=== PATIENT | male | born 1950 | race Caucasian/White ===

== ENCOUNTER 2021-04-13 11:11 | Inpatient (IN) | payer MEDICARE, SELFPAY ==
[2021-04-13] VITALS (10 sets, daily range): BP systolic 150–168; BP diastolic 56–72; PULSE 73–83; RESP 16–22; TEMP 36.7–37.1; O2SAT 88–95; BMI 29.0
--- NOTE | ~2021-04-13 | CT_ITS ---
EXAMINATION: CTA chest PE protocol DATE: 04/13/2021 14:27 INDICATION: Shortness of breath. TECHNIQUE: Computed tomography angiography (CTA) of the chest was performed with 100 mL Omnipaque-350 intravenous contrast timed to evaluate the pulmonary arteries. Coronal maximum intensity projection 3D-reconstructions were created by the technologist. Automated exposure control and iterative reconst ruction technique were employed. The dose-length product was 475.66 mGy-cm. COMPARISON: Chest single view 04/13/2021 FINDINGS: There are patchy groundglass opacities involving all lobes with mild architectural distorti on and some areas of crazy paving. There are small right and trace left pleural effusions. The heart size is normal. There are coronary artery calcifications. No pericardial effusion. There is no pulmon jeancarlos embolus. There is a small sliding hiatal hernia. There is a lipoma in right lateral chest wall. T here is mild thoracic spondylosis. IMPRESSION: 1. No pulmonary embolus. Sensitivity is moderately decreased by motion artifact. 2. Diffuse lung disease, consistent with COVID-19 pneumonia. 3. Small right and trace left pleural effusions. Reviewed, dictated and finalized at location A. IMPRESSION: 1. No pulmonary embolus. Sensitivity is moderately decreased by motion artifact . 2. Diffuse lung disease, consistent with COVID-19 pneumonia. 3. Small right and trace left pleural effusions.
--- NOTE | ~2021-04-13 | XR_ITS ---
EXAMINATION: XR chest 1V portable DATE: 04/17/2021 11:35 INDICATION: COVID pneumonia TECHNIQUE: frontal view of the chest was obtained. COMPARISON: Chest radiograph and CT dated 04/13/2021 FINDINGS: No significant interval change in patchy airspace opacities throughout both lungs. No pneumothorax or definitive pleural effusion. The cardiomediastinal silhouette is normal. Visualized bones and soft t issues are unremarkable. IMPRESSION: 1. Unchanged patchy bilateral lung disease most consistent with COVID pneumonia with differential inc luding pulmonary edema. Reviewed, dictated and finalized at location A. IMPRESSION: 1. Unchanged patchy bilateral lung disease most consistent with COVID pneumonia with differential including pulmonary edema.
--- NOTE | ~2021-04-13 | XR_ITS ---
EXAMINATION: XR chest 1V portable EXAM DATE: 04/13/2021 12:00 INDICATION: Shortness of breath. COVID positive. TECHNIQUE: Portable AP frontal chest x-ray was obtained. There is no prior study for comparison. FINDINGS: There is moderate to large amount of bilateral ill-defined airspace disease, probably COVID pneumonia given history provided. No pneumothorax or pleural effusion. Cardiomediastinal silhouette is normal. There are no osseous abnormalities identified. IMPRESSION: 1. Moderate to large amount of bilateral acute airspace disease probably COVID pneumonia. Reviewed, dictated and finalized at location B. IMPRESSION: 1. Moderate to large amount of bilateral acute airspace disease probably COVI D pneumonia.
--- NOTE | 2021-04-13 11:32 | ECG_ITS ---
Measurements Intervals [place] Rate: 75 P: 35 ME: 153 QRS: -26 QRSD: 88 T: 55 QT: 376 QTc: 420 Interpretive Statements SINUS RHYTHM DELAYED PRECORDIAL R/S TRANSITION BASELINE ARTIFACT- I, II, III, AVR, AVL, AVF, V5-V6 BORDERLINE ECG Electronically Signed On 04-13-2021 15:25:34 CDT by Morales Clay D.O.
[2021-04-13 11:48] LABS: Basophils Percent Auto 0.1 % (0.2-1.2); Hematocrit 39.2 % (42.0-52.0); Hemoglobin 12.6 g/dL (14.0-18.0); Immature Granulocyte Absolute 0.06 K/mm3 (0.00-0.031); Immature Granulocyte Percent A 0.7 % (0-0.5); Lymphocytes Absolute Auto 0.65 K/mm3 (0.9-3.2); Lymphocytes Percent Auto 7.7 % (18.3-44.2); Mean Corpuscular HGB Conc 32.1 g/dl (32-36); Mean Corpuscular Hemoglobin 26.4 pg (26-34); Mean Corpuscular Volume 82.2 fl (80-100); Mean Platelet Volume 10.5 fl (7.4-10.4); Monocytes Absolute Auto 0.3 K/mm3 (0.1-0.6); Monocytes Percent Auto 3.4 % (2.6-8.5); Neutrophils Absolute Auto 7.5 K/mm3 (1.3-6.7); Neutrophils Percent Auto 88.1 % (45.5-73.1); Platelet Count Result 204 k/mm3 (150-375); Red Blood Count 4.77 M/mm3 (4.6-6.20); Red Cell Distribution Width 13.2 % (11.5-14.5); White Blood Count 8.5 K/mm3 (4.5-10.0)
--- NOTE | 2021-04-13 11:55 | PC.NURSE ---
Radiology at bedside
[2021-04-13 11:59] LABS: Anion Gap 7 mmol/L (8-16); Blood Urea Nitrogen 15 mg/dL (9-20); Carbon Dioxide 26 mmol/L (22-30); Chloride 101 mmol/L (98-107); Estimated CRCL calculation 67 ml/min; Estimated Glomerular Filt Rate > 60; Glucose 117 mg/dL (75-110); Sodium 134 mmol/L (137-145)
--- NOTE | 2021-04-13 12:49 | ED.SOB ---
HPI - SOB/Dyspnea General Chief Complaint: Shortness of Breath/Dyspnea Stated Complaint: COVID+, breathing problems Time Seen by Provider: 04/13/21 12:04 Source: patient and RN notes reviewed Mode of arrival: wheelchair Limitations: no limitations History of Present Illness HPI Narrative: This is a 70 year old male who presents for evaluation of shortness of breath. Patient states he was diagnosed with COVID in August and he states he has been having shortness of breath since. HE states he was not diagnosed with pneumonia at that time. He started feeling worsening shortness of breath 12 days ago. He was diagnosed with COVID on 09 of April at [facility]. His symptoms continued to worsen so he came to ER. He denies headache, chest pain, diarrhea. HE reports he had nausea and vomiting 2 days ago. He reports poor appetite. He has not been vaccinated for COVID. Related Data Home Medications Medication Instructions Recorded Confirmed azithromycin 250 mg PO DAILY 04/13/21 04/13/21 benzonatate 100 mg BYMOUTH QID PRN 04/13/21 04/13/21 Allergies Allergy/AdvReac Type Severity Reaction Status Date / Time No Known Allergies Allergy Verified 04/13/21 16:49 Review of Systems Review of Systems: All systems reviewed & are unremarkable except as noted in HPI and below Constitutional: Constitutional: Denies chills and Denies fever(s) Cardiovascular: Cardiovascular: Denies chest pain Respiratory: Respiratory: Reports cough and Reports dyspnea Gastrointestinal: Gastrointestinal: Denies abdominal pain, Denies diarrhea, Reports nausea and Reports vomiting Neurologic: Reports headache(s), Reports focal weakness and Reports numbness PMFSH Past Medical History Medical History (Updated 04/13/21 @ 22:59 by Radha Hemphill MD) Hypertension Family History Family History Father Hypertension Social History Social History (Updated 04/13/21 @ 13:01 by Radha Hemphill MD) Smoking status: Never smoker Alcohol intake: current Drinks per week: 1 Substance use: never Gender identity (if verbalized by the patient): Male Sexual Orientation (if Verbalized by the Patient): Straight or Heterosexual Spiritual care concerns: No Exam Const: General: no acute distress and alert Orientation/consciousness: patient oriented x3 Eyes: EOM: EOMs intact bilaterally Chest: Chest palpation & inspection: normal inspection of the chest Resp: Effort & Inspection: normal respiratory effort and no retractions Auscultation: clear to auscultation bilaterally Cardio: Rate: regular rate Rhythm: regular rhythm Heart sounds: no murmurs GI: GI Palp: Yes Soft to palpation, No Tenderness to palpation present (GI) and No Guarding due to palpation present (GI) Auscultation: normal bowel sounds Neuro: General: patient oriented x3, moves all extremities and CN's II-XI intact bilaterally Extrem: General: normal to inspection and no pedal edema Psych: Mental Status: mental status grossly normal Affect: normal affect Course Reevaluation(s) Reevaluation #1: Patient has been found to have diffuse lung disease with covid. He is outside of 10day but his oxygen was 88==-89 % with ambulation. He will be admitted. Stable for the floor Date: 04/13/21 Time: 14:20 Vital Signs Vital signs: Vital Signs Temperature 98.7 F 04/13/21 11:30 Pulse Rate 76 04/13/21 11:30 Respiratory Rate 16 04/13/21 11:30 Blood Pressure 152/56 H 04/13/21 11:30 Pulse Oximetry 93 04/13/21 11:30 Temperature 98.0 F 04/13/21 20:00 Pulse Rate 78 04/13/21 20:00 Respiratory Rate 18 04/13/21 20:00 Blood Pressure 154/62 H 04/13/21 20:00 Pulse Oximetry 93 04/13/21 20:00 MDM - SOB/Dyspnea Lab Data Attestation: I reviewed the patient's lab results. Result diagrams: 04/13/21 11:35 04/13/21 11:35 Labs: Lab Results 04/13/21
[2021-04-13] MEDS: ALBUTEROL SULFATE (*SP) AEROSOL 1 PUFF 4 PUFF INHALATION (13:04)
[2021-04-13] MEDS: SODIUM CHLORIDE 0.9% IV 1,000 ML 999 ML IV CONT (13:33)
[2021-04-13 13:41] LABS: INR 1.1; Prothrombin Time 13.7 Seconds (11.1-14.7)
[2021-04-13 13:42] LABS: Partial Thromboplastin Time 32.4 SECONDS (22.3-36.8)
[2021-04-13 13:44] LABS: D Dimer 2.34 ug/mL (<0.48)
[2021-04-13 13:46] LABS: NT Pro B Type Natriuretic Pept 1140 pg/mL (5-100); Troponin I 0.029 ng/mL (0.000-0.034)
[2021-04-13] MEDS: DEXAMETHASONE 2 MG TABLET 6 MG PO (16:28)
[2021-04-13] MEDS: SODIUM CHLORIDE 0.9% IV 1,000 ML 125 ML IV CONT (16:28)
--- NOTE | 2021-04-13 16:40 | ADMGEN ---
This patient, Hemal Tracy, was admitted to [address] [place] [address] Room 310-01. Patient/family oriented to hospital policies and general routines including ID bracelet, bed and alarms, visiting hours, pain management, procedures, bathroom and other care routines, personal items, smoking policy, room service/diet, and visiting hours. Information on how to activate the Rapid Response Team has been discussed. Patient/Family are encouraged to report perceived risks to care and to ask questions if they do not understand what they are told or what they should do.
[2021-04-14] VITALS (12 sets, daily range): BP systolic 137–182; BP diastolic 57–67; PULSE 66–79; RESP 18–20; TEMP 36.2–36.7; O2SAT 90–95
[2021-04-14] MEDS: SODIUM CHLORIDE 0.9% IV 1,000 ML 125 ML IV CONT (00:42)
--- NOTE | 2021-04-14 01:23 | PM.IMHP ---
H&P: HPI History of Present Illness Date/Time: 04/14/21 01:23 Chief Complaint: COUGH Narrative: THIS IS A 70-YEAR-OLD MALE WITH NO SIGNIFICANT PAST MEDICAL HISTORY PATIENT PRESENTED TO THE EMERGENCY ROOM AFTER HE WAS DIAGNOSED WITH COVID ON April PATIENT STATES THAT HE HAD PNEUMONIA COVID-19 BACK IN AUGUST OF 2020 AND HE STATES THAT HE HAS NEVER FULLY RECOVERED FROM THAT BUT HE DID NOTICE SOME WORSENING OF HIS SHORTNESS OF BREATH HAVE PRIOR TO PRESENTING TO [facility]. AT THE TIME OF MY VISIT PATIENT DENIED ANY NAUSEA ANY VOMITING ABDOMINAL PAIN OR DIARRHEA NO FEVERS NO RIGORS NO CHILLS. PRELIMINARY WORKUP WAS SIGNIFICANT FOR CHEST X-RAY WITH DIFFUSE INFILTRATES WELL CT OF THE LUNGS. Review of Systems Review of Systems: Narrative: WORSENING SHORTNESS OF BREATH Constitutional: Constitutional: Denies chills, Reports fatigue, Denies fever(s), Reports lethargy and Denies weakness Eyes: Eyes: Denies change in vision ENT: Denies nasal congestion, Denies nasal discharge and Denies nasal obstruction Cardiovascular: Cardiovascular: Denies chest pain, Denies diaphoresis, Denies irregular heart rhythm, Denies claudication, Denies lightheadedness, Denies radiating jaw, neck or arm pain, Denies palpitations and Reports dyspnea Gastrointestinal: Gastrointestinal: Denies abdominal pain, Denies diarrhea, Denies nausea and Denies vomiting Genitourinary: Genitourinary: Reports no additional male genitourinary complaints Musculoskeletal: Musculoskeletal: Reports no additional musculoskeletal complaints Integumentary/Breasts: Skin/Breast: Reports system reviewed and no additional complaints, except as docu Neurologic: Reports system reviewed and no additional complaints, except as documented Psychiatric: Psychiatric: Reports no additional psychiatric complaints Endocrine: Endocrine: Reports no additional endocrine complaints Hematologic/Lymphatic: Hematologic/Lymphatic: Reports no additional hematologic/lymphatic complaints Allergic/Immunologic: Allergic/Immunologic: Reports no additional allergic/immunologic complaints [facility] Past Medical History Medical History (Updated 04/13/21 @ 22:59 by Radha Hemphill MD) Hypertension Family History Family History Father Hypertension Social History Social History (Updated 04/13/21 @ 13:01 by Radha Hemphill MD) Smoking status: Never smoker Alcohol intake: current Drinks per week: 1 Substance use: never Gender identity (if verbalized by the patient): Male Sexual Orientation (if Verbalized by the Patient): Straight or Heterosexual Spiritual care concerns: No Meds Home Medications and Allergies Home Medications Medication Instructions Recorded Confirmed Type azithromycin 250 mg PO DAILY 04/13/21 04/13/21 History benzonatate 100 mg BYMOUTH QID PRN 04/13/21 04/13/21 History Allergies Allergy/AdvReac Type Severity Reaction Status Date / Time No Known Allergies Allergy Verified 04/13/21 16:49 Vital Signs Vital Signs - 24 hr 04/13/21 11:30 04/13/21 11:45 04/13/21 11:47 Temperature 98.7 F Pulse Rate 76 73 73 Respiratory Rate 16 22 H Blood Pressure 152/56 H 159/71 H Pulse Oximetry 93 95 04/13/21 14:00 04/13/21 16:06 04/13/21 16:31 Temperature 98.1 F Pulse Rate 75 78 83 Respiratory Rate 18 18 22 H Blood Pressure 152/72 H 150/70 H 168/66 H Pulse Oximetry 94 95 90 04/13/21 20:00 04/13/21 20:27 04/13/21 23:45 Temperature 98.0 F 98.0 F Pulse Rate 78 78 Respiratory Rate 18 18 Blood Pressure 154/62 H 154/62 H Pulse Oximetry 93 90 88 L 04/13/21 23:49 04/14/21 00:22 Temperature 97.6 F Pulse Rate 71 Respiratory Rate 18 Blood Pressure 150/62 H Pulse Oximetry 92 90 Exam Narrative: Exam Narrative: LAYING IN BED Const: General: comfortable, no acute distress, well developed, alert, awake and other ( WELL-APPEARING) Nutritional Appearance: aver
[2021-04-14 02:10] LABS: Alanine Aminotransferase 27 U/L (4-50)
[2021-04-14] MEDS: REMDESIVIR 200 MG/NS 250 ML 200 MG/250 ML BAG 250 MG IVPB (04:09)
[2021-04-14 06:29] LABS: Basophils Percent Auto 0.1 % (0.2-1.2); Hematocrit 35.3 % (42.0-52.0); Hemoglobin 11.3 g/dL (14.0-18.0); Immature Granulocyte Absolute 0.06 K/mm3 (0.00-0.031); Immature Granulocyte Percent A 0.8 % (0-0.5); Lymphocytes Absolute Auto 0.53 K/mm3 (0.9-3.2); Lymphocytes Percent Auto 7.3 % (18.3-44.2); Mean Corpuscular Hemoglobin 26.2 pg (26-34); Mean Corpuscular Volume 81.7 fl (80-100); Mean Platelet Volume 10.5 fl (7.4-10.4); Monocytes Absolute Auto 0.3 K/mm3 (0.1-0.6); Monocytes Percent Auto 3.4 % (2.6-8.5); Neutrophils Absolute Auto 6.4 K/mm3 (1.3-6.7); Neutrophils Percent Auto 88.4 % (45.5-73.1); Platelet Count Result 214 k/mm3 (150-375); Red Blood Count 4.32 M/mm3 (4.6-6.20); Red Cell Distribution Width 13.2 % (11.5-14.5); White Blood Count 7.3 K/mm3 (4.5-10.0)
[2021-04-14 06:38] LABS: Anion Gap 8 mmol/L (8-16); Blood Urea Nitrogen 14 mg/dL (9-20); Calcium 8.5 mg/dL (8.4-10.2); Carbon Dioxide 23 mmol/L (22-30); Chloride 102 mmol/L (98-107); Estimated CRCL calculation 71 ml/min; Estimated Glomerular Filt Rate > 60; Glucose 151 mg/dL (75-110); Lactate Dehydrogenase 1022 U/L (313-618); Potassium 4.3 mmol/L (3.4-5.0); Sodium 133 mmol/L (137-145)
[2021-04-14 07:45] LABS: Burr Cells 2+ (NORMAL)
[2021-04-14 07:46] LABS: Platelet Estimate Adequate (Adequate); Tear Drop Cells 1+ (NORMAL)
[2021-04-14] MEDS: FUROSEMIDE INJ 40 MG/4 ML VIAL IV PUSH (07:54)
[2021-04-14] MEDS: ENOXAPARIN 40 MG/0.4 ML SYRINGE SUB-Q ×2 (07:55→22:08)
[2021-04-14] MEDS: BENZONATATE 100 MG CAPSULE BY MOUTH (07:55)
[2021-04-14] MEDS: DEXAMETHASONE SOD PHOS INJ 4 MG/ML VIAL 6 MG IV PUSH (07:56)
[2021-04-14 10:15] LABS: Erythrocyte Sedimentation Rate 47 mm/hr (0-20)
--- NOTE | 2021-04-14 12:43 | PM.IMPN ---
Progress Note: A&P Assessment and Plan (1) Bilateral pneumonia: Code(s): J18.9 - Pneumonia, unspecified organism Status: Acute Assessment and Plan: ADMITTED TO MED SURGE UNIT VITALS PER UNIT PROTOCOL UP AT [facility] CTA REVIEWED no PE, lung disease consistent with COVID CHEST X-RAY REVIEWED CONVALESCENT PLASMA REMDESIVIR 100mg IV Day 1 DEXAMETHASONE 6mg IV daily ROCEPHIN 2 gm daily AND ZITHROMAX 500mg IV daily Blood cultures pending Deescalate antibiotics when culture resulted LOVENOX 40 SUBCU B.I.D. FOLLOW INFLAMMATORY MARKERS: DDimer 2.34, Ferritin 583, LDH 1022, CRP 7 Trend labs Labs in the am BNP elevated 1140, 40mg IV lasix x 1 (2) COVID: Code(s): U07.1 - COVID-19 Status: Acute Assessment and Plan: See above Covid pending Supplement O2 maintain saturations above 92% Time Spent With Patient Time with patient: Greater than 35 minutes Subjective Date/time seen: 04/14/21 12:43 Interval history: Patient is a 71 year old male with no medical history that presented to the ED for evaluation of COVID. Patient was diagnosed on 04/09/21. Today he stated that he is doing a lot better and has been able to taste his food for the first time in a few days. Patient denies shortness of breath, chest pain, nausea, vomiting, diarrhea, headache, abdominal pain, lightheadedness, dizziness, or syncope. Patient did state that he has been up and walking around the room, he stated that he has not had any cough or noticed any increase in swelling. Patient did ask about the covid vaccine, however, I explained that he might have to wait a few months before he can get the vaccination. Review of Systems Review of Systems: All systems reviewed & are unremarkable except as noted in HPI and below Exam Const: General: cooperative, healthy appearing, comfortable, no acute distress, well developed, alert, awake, Physically active and other ( WELL-APPEARING) Nutritional Appearance: average body habitus Orientation/consciousness: oriented to person, oriented to place, oriented to time and patient oriented x3 HENMT: Head: normal to inspection, normocephalic and atraumatic Ears: hearing grossly normal bilaterally General nose exam: Normal external nose present Face and sinus: normal facial exam Mouth: Yes Normal oral and palatal mucosa present Eyes: General: appearance normal, both eyes and all related structures Alignment and Position: alignment normal Sclera: sclerae normal Pupils: Equal, round and reactive pupils present EOM: EOMs intact bilaterally Neck: Neck: full ROM, no lymphadenopathy, supple and no JVD Lymphatic: no lymphadenopathy noted Resp: Effort & Inspection: normal respiratory effort and able to speak in complete sentences Auscultation: clear to auscultation bilaterally Cardio: Jugular venous distension: no JVD Rate: regular rate Rhythm: regular rhythm Heart sounds: S1 normal heart sound present and S2 normal heart sound present GI: Inspection: normal to inspection : General: Yes deferred Skin: General skin exam: normal color Rashes: no rashes Wounds: no wounds Neuro: General: patient oriented x3 and CN's II-XI intact bilaterally Cranial nerves: Yes CN's II-XII intact bilaterally and Yes Equal, round and reactive pupils present Cognition (Neuro): normal cognition Speech: normal speech Gait exam (Neuro): Normal gait present Motor exam (neuro): 5/5 motor strength present throughout Extrem: General: normal to inspection, full ROM, no joint enlargement and no pedal edema Psych: Appearance: grossly normal Mental Status: mental status grossly normal Affect: normal affect Attitude: cooperative Thought process: Normal thought process present Thought content: Yes Normal thought content present Insight: Good insight present (Psych) Judgement: Good judgement present (Psych) Objective Data Vital Signs Vital Signs: Vital Signs - 24 hr
[2021-04-14] MEDS: TUBING, BLOOD PLUM PUMP TUBING 1 EACH XX (14:00)
[2021-04-14] MEDS: SODIUM CHLORIDE 0.9% IV 250 ML 30 ML IV CONT (14:00)
[2021-04-14] MEDS: REMDESIVIR 100 MG/NS 250 ML 100 MG/250 ML BAG 250 MG IVPB (22:09)
[2021-04-15] VITALS: BP 154/61; PULSE 59; RESP 20; TEMP 36.4; O2SAT 91
[2021-04-15 04:00] VITALS: BP 147/63; PULSE 62; RESP 20; TEMP 36.6; O2SAT 91
[2021-04-15 06:33] LABS: Basophils Percent Auto 0.1 % (0.2-1.2); Hematocrit 37.4 % (42.0-52.0); Immature Granulocyte Absolute 0.09 K/mm3 (0.00-0.031); Immature Granulocyte Percent A 0.8 % (0-0.5); Lymphocytes Absolute Auto 0.89 K/mm3 (0.9-3.2); Lymphocytes Percent Auto 8.3 % (18.3-44.2); Mean Corpuscular HGB Conc 32.1 g/dl (32-36); Mean Corpuscular Hemoglobin 26.1 pg (26-34); Mean Corpuscular Volume 81.3 fl (80-100); Mean Platelet Volume 10.6 fl (7.4-10.4); Monocytes Absolute Auto 0.5 K/mm3 (0.1-0.6); Neutrophils Absolute Auto 9.2 K/mm3 (1.3-6.7); Neutrophils Percent Auto 85.8 % (45.5-73.1); Platelet Count Result 285 k/mm3 (150-375); Red Cell Distribution Width 13.2 % (11.5-14.5); White Blood Count 10.7 K/mm3 (4.5-10.0)
[2021-04-15 06:39] LABS: INR 1.1; Prothrombin Time 13.6 Seconds (11.1-14.7)
[2021-04-15 06:52] LABS: Alanine Aminotransferase 22 U/L (4-50); Albumin Level 3.3 g/dL (3.5-5.1); Alkaline Phosphatase 56 U/L (38-126); Anion Gap 6 mmol/L (8-16); Aspartate Amino Transferase 35 U/L (17-59); Bilirubin,Total 0.5 mg/dL (0.2-1.3); Blood Urea Nitrogen 20 mg/dL (9-20); Calcium 9.1 mg/dL (8.4-10.2); Carbon Dioxide 27 mmol/L (22-30); Chloride 102 mmol/L (98-107); Estimated CRCL calculation 65 ml/min; Estimated Glomerular Filt Rate > 60; Glucose 157 mg/dL (75-110); Potassium 3.7 mmol/L (3.4-5.0); Sodium 135 mmol/L (137-145)
[2021-04-15 07:39] LABS: Burr Cells 1+ (NORMAL); Ovalocytes 1+ (NORMAL); Platelet Estimate Adequate (Adequate)
[2021-04-15 08:00] VITALS: BP 151/62; PULSE 61; RESP 20; TEMP 36.3; O2SAT 91
[2021-04-15] MEDS: DEXAMETHASONE SOD PHOS INJ 4 MG/ML VIAL 6 MG IV PUSH (08:51)
[2021-04-15] MEDS: ENOXAPARIN 40 MG/0.4 ML SYRINGE SUB-Q ×2 (08:51→20:01)
[2021-04-15 12:00] VITALS: BP 141/56; PULSE 65; RESP 20; TEMP 37; O2SAT 91
--- NOTE | 2021-04-15 15:48 | PM.IMPN ---
Progress Note: A&P Assessment and Plan (1) Bilateral pneumonia: Code(s): J18.9 - Pneumonia, unspecified organism Status: Acute Assessment and Plan: Secondary to COVID -Continue remdesivir, decadron, and lovenox -Utilize o2 for sats <90 and continue to wean -Inflammatory markers high, continue to trend -No PE on CTA -BNP elevated with small pleural effusions on CT. no hx of heart disease. No signs of CHF. Recommend outpt echo -Will stop IV abx, no signs of bacterial infection -Pt unvaccinated and plans to get the covid vaccine in 3 months (2) COVID: Code(s): U07.1 - COVID-19 Status: Acute Assessment and Plan: As above (3) Elevated BP without diagnosis of hypertension: Code(s): R03.0 - Elevated blood-pressure reading, without diagnosis of hypertension Status: Acute Assessment and Plan: last bp 141/56 -could be due to stress but pt was running much higher in the past (182/67) -Monitor trends, consider starting bp lowering medications if he continues to be high. Time Spent With Patient Time with patient: 25 - 35 minutes Subjective Date/time seen: 04/15/21 15:48 Interval history: Pt is a 70 y/o male here for COVID PNA. Pt was seen today and is doing better. he has an occasional cough and no SOB at rest or with activity. He has been walking around the room without lightheadness or weakness. He is eating and drinking well. He denies nausea, vomiting, fevers, chills, abdominal pain or CP. Review of Systems Review of Systems: All systems reviewed & are unremarkable except as noted in HPI and below Exam Narrative: Exam Narrative: General: Well developed well nourished patient in NAD HEENT: normocephalic Neck: supple Neuro: Alert and oriented x4 CV:RRR Resp:CTA with 2L of o2 applied Abd: Soft, non distended. No pain to palpation. Positive bowel sounds Extremities: No swelling, erythema, or pain to palpation. Objective Data Vital Signs Vital Signs: Vital Signs - 24 hr 04/14/21 16:35 04/14/21 17:35 04/14/21 20:00 Temperature 97.8 F 97.4 F L 97.2 F L Pulse Rate 68 69 66 Respiratory Rate 18 18 20 Blood Pressure 153/61 H 156/67 H 150/63 H Pulse Oximetry 92 95 91 04/15/21 00:00 04/15/21 04:00 04/15/21 08:00 Temperature 97.6 F 97.8 F 97.3 F L Pulse Rate 59 L 62 61 Respiratory Rate 20 20 20 Blood Pressure 154/61 H 147/63 H 151/62 H Pulse Oximetry 91 91 91 04/15/21 12:00 Temperature 98.6 F Pulse Rate 65 Respiratory Rate 20 Blood Pressure 141/56 H Pulse Oximetry 91 Intake/Output Intake/Output: Intake & Output 04/12/21 04/13/21 04/14/21 04/15/21 23:59 23:59 23:59 23:59 Intake Total 1250 4084 1150 Output Total 800 500 Balance 1250 3284 650 Meds/Results Medications: Active Medications Generic Name Dose Route Start Last Admin Trade Name Freq PRN Reason Stop Dose Admin Albuterol 4 puff 04/13/21 14:44 Albuterol Sulfate (*Sp) Aerosol 1 Puff INHALATION QIDRT PRN Shortness Of Breath Benzonatate 100 mg 04/14/21 01:17 04/14/21 07:55 Benzonatate 100 Mg Capsule BY MOUTH 100 mg QID PRN Administration Cough Dexamethasone Sodium Phosphate 6 mg 04/14/21 09:00 04/15/21 08:51 Dexamethasone Sod Phos Inj 4 Mg/Ml Vial IV PUSH 04/23/21 09:01 6 mg DAILY JOSEPHINE Administration Enoxaparin Sodium 40 mg 04/14/21 09:00 04/15/21 08:51 Enoxaparin 40 Mg/0.4 Ml Syringe SUB-Q 40 mg Q12HR JOSEPHINE Administration Remdesivir 100 mg in 250 mls @ 250 mls/hr 04/14/21 22:00 04/14/21 23:30 IVPB 04/18/21 22:01 Infused Q24H JOSEPHINE Infusion Azithromycin 500 mg/ Dextrose 250 mls @ 250 mls/hr 04/14/21 22:00 04/15/21 02:10 IVPB Infused DAILY@2200 JOSEPHINE Infusion Ceftriaxone Sodium/Dextrose 1 gm in 50 mls @ 100 mls/hr 04/16/21 07:00 Rocephin 1 Gm/D5w 50 Ml IVPB Q24H JOSEPHINE Ondansetron HCl 4 mg 04/13/21 14:44 Ondansetron Inj 4 Mg/2 Ml Vial IV PUSH Q4H PRN Nausea
[2021-04-15 16:00] VITALS: BP 152/64; PULSE 65; RESP 22; TEMP 36.4; O2SAT 92
[2021-04-15 20:00] VITALS: BP 150/66; PULSE 61; RESP 20; TEMP 36.2; O2SAT 94
[2021-04-15] MEDS: REMDESIVIR 100 MG/NS 250 ML 100 MG/250 ML BAG 250 MG IVPB (22:20)
[2021-04-16] VITALS (10 sets, daily range): BP systolic 129–170; BP diastolic 59–69; PULSE 59–72; RESP 16–20; TEMP 36.2–36.4; O2SAT 84–92
[2021-04-16 07:17] LABS: INR 1.1; Prothrombin Time 13.7 Seconds (11.1-14.7)
[2021-04-16 07:21] LABS: D Dimer 1.69 ug/mL (<0.48)
[2021-04-16 07:32] LABS: Alanine Aminotransferase 21 U/L (4-50); Albumin Level 3.1 g/dL (3.5-5.1); Alkaline Phosphatase 55 U/L (38-126); Anion Gap 5 mmol/L (8-16); Aspartate Amino Transferase 34 U/L (17-59); Bilirubin,Total 0.6 mg/dL (0.2-1.3); Blood Urea Nitrogen 21 mg/dL (9-20); CRP 2.3 mg/dL (<1.0); Calcium 9.5 mg/dL (8.4-10.2); Carbon Dioxide 28 mmol/L (22-30); Chloride 103 mmol/L (98-107); Estimated CRCL calculation 59 ml/min; Estimated Glomerular Filt Rate > 60; Glucose 109 mg/dL (75-110); Potassium 4.3 mmol/L (3.4-5.0); Sodium 136 mmol/L (137-145)
[2021-04-16] MEDS: amLODIPine BESYLATE 5 MG TABLET PO (09:30)
[2021-04-16] MEDS: ENOXAPARIN 40 MG/0.4 ML SYRINGE SUB-Q ×2 (09:30→20:35)
[2021-04-16] MEDS: DEXAMETHASONE SOD PHOS INJ 4 MG/ML VIAL 6 MG IV PUSH (09:30)
--- NOTE | 2021-04-16 14:43 | PM.IMPN ---
Progress Note: A&P Assessment and Plan (1) Bilateral pneumonia: Code(s): J18.9 - Pneumonia, unspecified organism Status: Acute Assessment and Plan: Secondary to COVID -Continue remdesivir, decadron, and lovenox -Utilize o2 for sats <90 and continue to wean -Inflammatory markers high, continue to trend -No PE on CTA -BNP elevated with small pleural effusions on CT. no hx of heart disease. No signs of CHF. Recommend outpt echo - IV abx stopped, no signs of bacterial infection -Pt unvaccinated and plans to get the covid vaccine in 3 months (2) COVID: Code(s): U07.1 - COVID-19 Status: Acute Assessment and Plan: As above (3) Elevated BP without diagnosis of hypertension: Code(s): R03.0 - Elevated blood-pressure reading, without diagnosis of hypertension Status: Acute Assessment and Plan: last bp 129/63 but was elevated 170/64 this morning. -Amlodipine started as he has been trending high. Subjective Date/time seen: 04/16/21 14:43 Interval history: Pt is a 70 y/o male here for COVID PNA. Pt was seen today and is doing well but was hypoxic earlier. He did not feel this. he has an occasional cough and no SOB at rest or with activity. He has been walking around the room without lightheadedness or weakness. He is eating and drinking well. He denies nausea, vomiting, fevers, chills, abdominal pain or CP. Exam Narrative: Exam Narrative: General: Well developed well nourished patient in NAD HEENT: normocephalic Neck: supple Neuro: Alert and oriented x4 CV:RRR Resp:CTA with 3L of o2 applied Abd: Soft, non distended. No pain to palpation. Positive bowel sounds Extremities: No swelling, erythema, or pain to palpation. Objective Data Vital Signs Vital Signs: Vital Signs - 24 hr 04/15/21 16:00 04/15/21 20:00 04/16/21 00:00 Temperature 97.5 F L 97.1 F L 97.1 F L Pulse Rate 65 61 59 L Respiratory Rate 22 H 20 20 Blood Pressure 152/64 H 150/66 H 154/63 H Pulse Oximetry 92 94 90 04/16/21 01:51 04/16/21 04:00 04/16/21 08:00 Temperature 97.2 F L 97.3 F L Pulse Rate 59 L 65 Respiratory Rate 20 16 Blood Pressure 170/64 H 158/59 H Pulse Oximetry 90 90 89 L 04/16/21 09:35 04/16/21 09:38 04/16/21 12:00 Temperature 97.5 F L Pulse Rate 72 Respiratory Rate 20 Blood Pressure 129/63 Pulse Oximetry 84 L 90 90 Intake/Output Intake/Output: Intake & Output 04/13/21 04/14/21 04/15/21 04/16/21 23:59 23:59 23:59 23:59 Intake Total 1250 4084 2690 910 Output Total 800 850 Balance 1250 3284 1840 910 Meds/Results Medications: Active Medications Generic Name Dose Route Start Last Admin Trade Name Freq PRN Reason Stop Dose Admin Albuterol 4 puff 04/13/21 14:44 Albuterol Sulfate (*Sp) Aerosol 1 Puff INHALATION QIDRT PRN Shortness Of Breath Amlodipine Besylate 5 mg 04/16/21 09:00 04/16/21 09:30 Amlodipine Besylate 5 Mg Tablet PO 5 mg QAM JOSEPHINE Administration Benzonatate 100 mg 04/14/21 01:17 04/14/21 07:55 Benzonatate 100 Mg Capsule BY MOUTH 100 mg QID PRN Administration Cough Dexamethasone Sodium Phosphate 6 mg 04/14/21 09:00 04/16/21 09:30 Dexamethasone Sod Phos Inj 4 Mg/Ml Vial IV PUSH 04/23/21 09:01 6 mg DAILY JOSEPHINE Administration Enoxaparin Sodium 40 mg 04/14/21 09:00 04/16/21 09:30 Enoxaparin 40 Mg/0.4 Ml Syringe SUB-Q 40 mg Q12HR JOSEPHINE Administration Remdesivir 100 mg in 250 mls @ 250 mls/hr 04/14/21 22:00 04/16/21 00:22 IVPB 04/18/21 22:01 250 mls/hr Q24H JOSEPHINE Infusion Ondansetron HCl 4 mg 04/13/21 14:44 Ondansetron Inj 4 Mg/2 Ml Vial IV PUSH Q4H PRN Nausea Radiology Results: ITS Impressions Chest X-Ray 04/13/21 12:06 IMPRESSION: 1. Moderate to large amount of bilateral acute airspace disease probably COVID pneumonia. Chest CTA 04/13/21 14:34 IMPRESSION: 1. No pulmonary embolus. Sensitivity is moderately d
[2021-04-16] MEDS: REMDESIVIR 100 MG/NS 250 ML 100 MG/250 ML BAG 250 MG IVPB (20:34)
[2021-04-17] VITALS (9 sets, daily range): BP systolic 139–171; BP diastolic 56–64; PULSE 60–76; RESP 18–22; TEMP 36.1–36.8; O2SAT 86–93
[2021-04-17 06:48] LABS: Hematocrit 35.9 % (42.0-52.0); Hemoglobin 11.5 g/dL (14.0-18.0); Mean Corpuscular Hemoglobin 26.4 pg (26-34); Mean Corpuscular Volume 82.3 fl (80-100); Mean Platelet Volume 10.6 fl (7.4-10.4); Platelet Count Result 332 k/mm3 (150-375); Red Blood Count 4.36 M/mm3 (4.6-6.20); Red Cell Distribution Width 13.2 % (11.5-14.5); White Blood Count 11.3 K/mm3 (4.5-10.0)
[2021-04-17 07:31] LABS: INR 1.1; Prothrombin Time 13.6 Seconds (11.1-14.7)
[2021-04-17 07:32] LABS: Alanine Aminotransferase 20 U/L (4-50); Albumin Level 2.9 g/dL (3.5-5.1); Alkaline Phosphatase 51 U/L (38-126); Anion Gap 5 mmol/L (8-16); Aspartate Amino Transferase 33 U/L (17-59); Bilirubin,Total 0.4 mg/dL (0.2-1.3); Blood Urea Nitrogen 23 mg/dL (9-20); CRP 2.8 mg/dL (<1.0); Calcium 9.3 mg/dL (8.4-10.2); Carbon Dioxide 24 mmol/L (22-30); Chloride 104 mmol/L (98-107); Estimated CRCL calculation 65 ml/min; Estimated Glomerular Filt Rate > 60; Glucose 86 mg/dL (75-110); Lactate Dehydrogenase 882 U/L (313-618); Potassium 4.3 mmol/L (3.4-5.0); Sodium 133 mmol/L (137-145)
[2021-04-17] MEDS: DEXAMETHASONE SOD PHOS INJ 4 MG/ML VIAL 6 MG IV PUSH (09:22)
[2021-04-17] MEDS: amLODIPine BESYLATE 5 MG TABLET PO (09:22)
[2021-04-17] MEDS: ENOXAPARIN 40 MG/0.4 ML SYRINGE SUB-Q ×2 (09:22→20:31)
--- NOTE | 2021-04-17 15:09 | PM.IMPN ---
Progress Note: A&P Assessment and Plan (1) Bilateral pneumonia: Code(s): J18.9 - Pneumonia, unspecified organism Status: Acute Assessment and Plan: Secondary to COVID - oxygen has increased to 5 L today. Repeat chest x-ray is unchanged. Suspect this was due to dyspnea on exertion as he says he feels short of breath when he walks to and from the bathroom. He has no PE on the CTA and has been on Lovenox -Continue remdesivir, decadron, and lovenox -Utilize o2 for sats <90 and continue to wean -Inflammatory markers high, continue to trend -No PE on CTA - BNP elevated and patient has crackles. Will give 1 dose of IV Lasix now and check an echo - IV abx stopped, no signs of bacterial infection -Pt unvaccinated and plans to get the covid vaccine in 3 months (2) COVID: Code(s): U07.1 - COVID-19 Status: Acute Assessment and Plan: As above (3) Elevated BP without diagnosis of hypertension: Code(s): R03.0 - Elevated blood-pressure reading, without diagnosis of hypertension Status: Acute Assessment and Plan: last bp 151/56 but was elevated 170/64 in the past -Amlodipine started as he has been trending high. Subjective Date/time seen: 04/17/21 15:09 Interval history: Pt is a 70 y/o male here for COVID PNA. Patient was seen today and states he is feeling about the same as yesterday. He has some dyspnea on exertion but other than that feels the same. Pt denies nausea, vomiting, fevers, chills, constipation, diarrhea, chest pain, worsening cough, or abdominal pain. Exam Narrative: Exam Narrative: General: Well developed well nourished patient in NAD HEENT: normocephalic, on nasal cannula Neck: supple Neuro: Alert and oriented x4 CV:RRR Resp: crackles at the baseswith 5L of o2 applied Abd: Soft, non distended. No pain to palpation. Positive bowel sounds Extremities: No swelling, erythema, or pain to palpation. Objective Data Vital Signs Vital Signs: Vital Signs - 24 hr 04/16/21 15:41 04/16/21 20:00 04/16/21 20:05 Temperature 97.4 F L 97.2 F L Pulse Rate 68 68 Respiratory Rate 18 20 Blood Pressure 151/69 H 144/61 H Pulse Oximetry 92 90 92 04/17/21 00:00 04/17/21 04:00 04/17/21 08:00 Temperature 97.0 F L 97.4 F L 97.3 F L Pulse Rate 62 67 65 Respiratory Rate 20 22 H 18 Blood Pressure 156/59 H 171/64 H 151/62 H Pulse Oximetry 90 90 91 04/17/21 09:33 04/17/21 11:32 04/17/21 11:42 Temperature 98.2 F Pulse Rate 76 Respiratory Rate 22 H Blood Pressure 151/56 H Pulse Oximetry 90 91 93 Intake/Output Intake/Output: Intake & Output 04/14/21 04/15/21 04/16/21 04/17/21 23:59 23:59 23:59 23:59 Intake Total 4084 2690 2430 970 Output Total 800 850 Balance 3284 1840 2430 970 Meds/Results Medications: Active Medications Generic Name Dose Route Start Last Admin Trade Name Freq PRN Reason Stop Dose Admin Albuterol 4 puff 04/13/21 14:44 Albuterol Sulfate (*Sp) Aerosol 1 Puff INHALATION QIDRT PRN Shortness Of Breath Amlodipine Besylate 5 mg 04/16/21 09:00 04/17/21 09:22 Amlodipine Besylate 5 Mg Tablet PO 5 mg QAM JOSEPHINE Administration Benzonatate 100 mg 04/14/21 01:17 04/14/21 07:55 Benzonatate 100 Mg Capsule BY MOUTH 100 mg QID PRN Administration Cough Dexamethasone Sodium Phosphate 6 mg 04/14/21 09:00 04/17/21 09:22 Dexamethasone Sod Phos Inj 4 Mg/Ml Vial IV PUSH 04/23/21 09:01 6 mg DAILY JOSEPHINE Administration Enoxaparin Sodium 40 mg 04/14/21 09:00 04/17/21 09:22 Enoxaparin 40 Mg/0.4 Ml Syringe SUB-Q 40 mg Q12HR JOSEPHINE Administration Furosemide 20 mg 04/17/21 15:15 Furosemide Inj 40 Mg/4 Ml Vial IV PUSH 04/17/21 15:16 ONCE ONE Remdesivir 100 mg in 250 mls @ 250 mls/hr 04/14/21 22:00 04/16/21 20:34 IVPB 04/18/21 22:01 250 mls/hr Q24H JOSEPHINE Administration Ondansetron HCl 4 mg 04/13/21 14:44 Ondansetron Inj 4 Mg/2 Ml Vial
[2021-04-17] MEDS: FUROSEMIDE INJ 40 MG/4 ML VIAL 20 MG IV PUSH (15:23)
[2021-04-17] MEDS: REMDESIVIR 100 MG/NS 250 ML 100 MG/250 ML BAG 250 MG IVPB (20:31)
[2021-04-18] VITALS (7 sets, daily range): BP systolic 133–157; BP diastolic 57–67; PULSE 59–72; RESP 18–24; TEMP 35.8–36.8; O2SAT 90–95
--- NOTE | 2021-04-18 | ECHO_ITS ---
Patient Info Name: Hemal Tracy Age: 70 years : 1950 Gender: Male Ht: 72 in Wt: 214 lbs BSA: 2.24 m2 HR: 66 bpm BP: 157 / 62 mmHg Heart Rhythm: Sinus Rhythm Technical Quality: Good Exam Date: 04/18/2021 11:27 AM Exam Location: [facility] Patient Status: Inpatient Admit Date: 04/14/2021 Staff Ordering Physician: Erica Martell PA-C Customer Complaint Service Supervisor: Arias Roach RDCS, RT Attending Provider: Erica Martell PA-C Referring Physician: Jasbir HUNT; Exam Type: CA echo doppler color flow Study Info Indications - ELEVATED BNP I51.7 - Cardiomegaly Complete two-dimensional, color flow and Doppler transthoracic echocardiogram is performed. Strain analysis performed. Summary 1. Complete two-dimensional, color flow and Doppler transthoracic echocardiogram is performed. 2. Strain analysis performed. 3. Left ventricular chamber dimension is mildly enlarged. 4. Left ventricular systolic function is normal, estimated at 60-65%. 5. There is moderately increased left ventricular wall thickness. 6. The left ventricular diastolic function is grade I diastolic dysfunction. 7. Global longitudinal strain is normal at -18 %. 8. Left atrial chamber dimension is mildly enlarged. 9. There is moderate aortic valve regurgitation. 10. There is mild mitral valve regurgitation. 11. There is mild pulmonic regurgitation. 12. The aortic regurgitation is at least moderate. The severity of regurgitation may be underestimated. Maintenance surveillance the S serial echocardiograms is recommended in the future. Left Ventricle Left ventricular chamber dimension is mildly enlarged. Left ventricular systolic function is normal, estimated at 60-65%. There is moderately increased left ventricular wall thickness. The left ventricular diastolic function is grade I diastolic dysfunction. Global longitudinal strain is normal at -18 %. Right Ventricle Right ventricular chamber dimension is normal. Right ventricular systolic function is normal. Left Atria Left atrial chamber dimension is mildly enlarged. Right Atria Right atrial chamber dimension is normal. Atrial Septum Intact interatrial septum visualized by color flow imaging. Aortic Valve The aortic valve is trileaflet. There is no aortic valve sclerosis. There is no aortic valve stenosis. There is moderate aortic valve regurgitation. Pulmonic Valve The pulmonic valve is normal. There is no pulmonic valve stenosis. There is mild pulmonic regurgitation. Mitral Valve There is no mitral valve stenosis. There is mild mitral valve regurgitation. The mitral valve annulus is mildly calcified. Tricuspid Valve The tricuspid valve leaflets are normal. There is no significant tricuspid valve stenosis. There is trace tricuspid valve regurgitation. Other Findings The aortic regurgitation is at least moderate. The severity of regurgitation may be underestimated. Maintenance surveillance the S serial echocardiograms is recommended in the future. Pericardium/Pleural The pericardium appears normal. There is no pericardial effusion. Inferior Vena Cava Normal inferior vena cava with >50% collapse upon inspiration consistent with normal right atrial pressure, 5 mmHg. Aorta The prox ascending aorta size is mildly dilated. Left Ventricular Outflow Tract Name Value Normal ----
[2021-04-18 06:55] LABS: Hematocrit 38.1 % (42.0-52.0); Hemoglobin 12.2 g/dL (14.0-18.0); Mean Corpuscular Hemoglobin 26.6 pg (26-34); Mean Platelet Volume 10.3 fl (7.4-10.4); Platelet Count Result 375 k/mm3 (150-375); Red Blood Count 4.59 M/mm3 (4.6-6.20); Red Cell Distribution Width 13.3 % (11.5-14.5); White Blood Count 10.4 K/mm3 (4.5-10.0)
[2021-04-18 07:06] LABS: Alanine Aminotransferase 32 U/L (4-50); Anion Gap 5 mmol/L (8-16); Blood Urea Nitrogen 23 mg/dL (9-20); Calcium 9.5 mg/dL (8.4-10.2); Carbon Dioxide 29 mmol/L (22-30); Chloride 103 mmol/L (98-107); Estimated CRCL calculation 65 ml/min; Estimated Glomerular Filt Rate > 60; Glucose 101 mg/dL (75-110); Potassium 4.2 mmol/L (3.4-5.0); Sodium 137 mmol/L (137-145)
[2021-04-18 07:52] LABS: Prothrombin Time 13.4 Seconds (11.1-14.7)
[2021-04-18] MEDS: ENOXAPARIN 40 MG/0.4 ML SYRINGE SUB-Q ×2 (08:53→20:22)
[2021-04-18] MEDS: DEXAMETHASONE SOD PHOS INJ 4 MG/ML VIAL 6 MG IV PUSH (08:54)
[2021-04-18] MEDS: amLODIPine BESYLATE 5 MG TABLET PO (08:54)
--- NOTE | 2021-04-18 13:33 | PM.IMPN ---
Progress Note: A&P Assessment and Plan (1) Bilateral pneumonia: Code(s): J18.9 - Pneumonia, unspecified organism Status: Acute Assessment and Plan: Secondary to COVID -At 5L today and I took him down to 4L during exam. -Repeat chest x-ray is unchanged 04/17/21. -He has no PE on the CTA and has been on Lovenox -Continue remdesivir (day 5), decadron, and lovenox -Utilize o2 for sats <90 and continue to wean -Inflammatory markers high, continue to trend -No PE on CTA - BNP elevated, no further crackles with one time dose of lasix 04/17/21 but pt does not feel any improvement - IV abx stopped, no signs of bacterial infection -Pt unvaccinated and plans to get the covid vaccine in 3 months (2) COVID: Code(s): U07.1 - COVID-19 Status: Acute Assessment and Plan: As above (3) Elevated BP without diagnosis of hypertension: Code(s): R03.0 - Elevated blood-pressure reading, without diagnosis of hypertension Status: Acute Assessment and Plan: last bp 149/67 but was elevated 170/64 in the past -Amlodipine started 04/16/21 as he has been trending high. Continue with that (4) Aortic regurgitation: Code(s): I35.1 - Nonrheumatic aortic (valve) insufficiency Status: Acute Assessment and Plan: At least moderate amount of AR on echo -Will need routine monitoring outpt -no signs of HF Subjective Date/time seen: 04/18/21 13:33 Interval history: Pt is a 70 y/o male here for COVID PNA. Patient was seen today and states he is feeling about the same as yesterday. He cannot tell if the lasix made him feel any better. He only really feels SOB with exertion and at night laying down. Pt denies nausea, vomiting, fevers, chills, constipation, diarrhea, chest pain, worsening cough, or abdominal pain. Exam Narrative: Exam Narrative: General: Well developed well nourished patient in NAD HEENT: normocephalic, on nasal cannula Neck: supple Neuro: Alert and oriented x4 CV:RRR Resp: CTA, no wheezing or rhonchi. 4L applied Abd: Soft, non distended. No pain to palpation. Positive bowel sounds Extremities: No swelling, erythema, or pain to palpation. Objective Data Vital Signs Vital Signs: Vital Signs - 24 hr 04/17/21 16:00 04/17/21 20:00 04/17/21 20:30 Temperature 97.9 F 97.0 F L Pulse Rate 60 66 Respiratory Rate 20 18 Blood Pressure 139/63 153/60 H Pulse Oximetry 92 92 91 04/18/21 00:00 04/18/21 04:00 04/18/21 08:00 Temperature 96.5 F L 96.7 F L 97.8 F Pulse Rate 60 59 L 60 Respiratory Rate 18 18 20 Blood Pressure 146/64 H 145/58 H 157/62 H Pulse Oximetry 95 90 93 04/18/21 12:00 Temperature 98.2 F Pulse Rate 65 Respiratory Rate 24 H Blood Pressure 149/67 H Pulse Oximetry 95 Intake/Output Intake/Output: Intake & Output 04/15/21 04/16/21 04/17/21 04/18/21 23:59 23:59 23:59 23:59 Intake Total 2690 2680 2030 200 Output Total 850 1850 700 Balance 1840 2680 180 -500 Meds/Results Medications: Active Medications Generic Name Dose Route Start Last Admin Trade Name Freq PRN Reason Stop Dose Admin Albuterol 4 puff 04/13/21 14:44 Albuterol Sulfate (*Sp) Aerosol 1 Puff INHALATION QIDRT PRN Shortness Of Breath Amlodipine Besylate 5 mg 04/16/21 09:00 04/18/21 08:54 Amlodipine Besylate 5 Mg Tablet PO 5 mg QAM JOSEPHINE Administration Benzonatate 100 mg 04/14/21 01:17 04/14/21 07:55 Benzonatate 100 Mg Capsule BY MOUTH 100 mg QID PRN Administration Cough Dexamethasone Sodium Phosphate 6 mg 04/14/21 09:00 04/18/21 08:54 Dexamethasone Sod Phos Inj 4 Mg/Ml Vial IV PUSH 04/23/21 09:01 6 mg DAILY JOSEPHINE Administration Enoxaparin Sodium 40 mg 04/14/21 09:00 04/18/21 08:53 Enoxaparin 40 Mg/0.4 Ml Syringe SUB-Q 40 mg Q12HR JOSEPHINE Administration Remdesivir 100 mg in 250 mls @ 250 mls/hr 04/14/21 22:00 04/17/21 20:31 IVPB 04/18/21 22:01 250 mls/hr Q24H JOSEPHINE
[2021-04-18] MEDS: REMDESIVIR 100 MG/NS 250 ML 100 MG/250 ML BAG 250 MG IVPB (20:22)
[2021-04-19 04:00] VITALS: BP 153/69; PULSE 64; RESP 22; TEMP 36.1; O2SAT 91
[2021-04-19 06:36] LABS: Alanine Aminotransferase 36 U/L (4-50); Alkaline Phosphatase 54 U/L (38-126); Anion Gap 6 mmol/L (8-16); Aspartate Amino Transferase 36 U/L (17-59); Bilirubin,Total 0.5 mg/dL (0.2-1.3); Blood Urea Nitrogen 25 mg/dL (9-20); CRP 3.1 mg/dL (<1.0); Calcium 9.8 mg/dL (8.4-10.2); Carbon Dioxide 25 mmol/L (22-30); Chloride 104 mmol/L (98-107); Estimated CRCL calculation 59 ml/min; Estimated Glomerular Filt Rate > 60; Glucose 101 mg/dL (75-110); Lactate Dehydrogenase 746 U/L (313-618); Potassium 4.4 mmol/L (3.4-5.0); Sodium 135 mmol/L (137-145)
[2021-04-19 08:00] VITALS: BP 149/64; PULSE 63; RESP 14; TEMP 36.6; O2SAT 91; O2SAT 92
[2021-04-19] MEDS: ENOXAPARIN 40 MG/0.4 ML SYRINGE SUB-Q ×2 (08:46→20:34)
[2021-04-19] MEDS: amLODIPine BESYLATE 5 MG TABLET PO (08:46)
[2021-04-19] MEDS: DEXAMETHASONE SOD PHOS INJ 4 MG/ML VIAL 6 MG IV PUSH (08:46)
[2021-04-19 11:50] VITALS: O2SAT 90
[2021-04-19 12:00] VITALS: BP 132/55; PULSE 76; RESP 16; TEMP 37; O2SAT 93
--- NOTE | 2021-04-19 12:28 | PM.IMPN ---
Progress Note: A&P Assessment and Plan (1) Bilateral pneumonia: Code(s): J18.9 - Pneumonia, unspecified organism Status: Acute Assessment and Plan: Secondary to COVID -At 3L today (improvement) -Repeat chest x-ray is unchanged 04/17/21. -He has no PE on the CTA and has been on Lovenox -Continue decadron, and lovenox. Remdesivir completed 04/18/21 -Utilize o2 for sats <90 and continue to wean -Inflammatory markers high, continue to trend -No PE on CTA - BNP elevated, no further crackles with one time dose of lasix 04/17/21 but pt does not feel any improvement - IV abx stopped, no signs of bacterial infection -Pt unvaccinated and plans to get the covid vaccine in 3 months -Likely d/c in 1-2 days. may need home oxygen if he is unable to be weaned off today or tomorrow. (2) COVID: Code(s): U07.1 - COVID-19 Status: Acute Assessment and Plan: As above (3) Elevated BP without diagnosis of hypertension: Code(s): R03.0 - Elevated blood-pressure reading, without diagnosis of hypertension Status: Acute Assessment and Plan: last bp 132/55 but was elevated up to 182/67 in the past -Amlodipine started 04/16/21 and his bp trends have been better. Plan to continue with that outpt. (4) Aortic regurgitation: Code(s): I35.1 - Nonrheumatic aortic (valve) insufficiency Status: Acute Assessment and Plan: At least moderate amount of AR on echo -Will need routine monitoring outpt -no signs of HF -pt informed, agreed to f/u with pcp Subjective Date/time seen: 04/19/21 12:28 Interval history: Pt is a 70 y/o male here for COVID PNA. Patient was seen today and says he is coughing less. He has less ALEXANDER while walking to the bathroom. He overall feels much better than he did when he came in.Pt denies nausea, vomiting, fevers, chills, constipation, diarrhea, chest pain, worsening cough, or abdominal pain. We spoke about his echo findings and he is going to f/u with his pcp Exam Narrative: Exam Narrative: General: Well developed well nourished patient in NAD HEENT: normocephalic, on nasal cannula Neck: supple Neuro: Alert and oriented x4 CV:RRR Resp: CTA, no wheezing or rhonchi. 3L applied Abd: Soft, non distended. No pain to palpation. Positive bowel sounds Extremities: No swelling, erythema, or pain to palpation. Objective Data Vital Signs Vital Signs: Vital Signs - 24 hr 04/18/21 16:00 04/18/21 20:00 04/18/21 23:59 Temperature 98.3 F 96.5 F L 96.9 F L Pulse Rate 72 69 65 Respiratory Rate 24 H 20 22 H Blood Pressure 133/57 L 148/61 H 147/66 H Pulse Oximetry 93 91 91 04/19/21 04:00 04/19/21 08:00 04/19/21 11:50 Temperature 96.9 F L 97.8 F Pulse Rate 64 63 Respiratory Rate 22 H 14 Blood Pressure 153/69 H 149/64 H Pulse Oximetry 91 92 90 Intake/Output Intake/Output: Intake & Output 04/16/21 04/17/21 04/18/21 04/19/21 23:59 23:59 23:59 23:59 Intake Total 2680 2280 1760 580 Output Total 1850 1550 470 Balance 2680 430 210 110 Meds/Results Medications: Active Medications Generic Name Dose Route Start Last Admin Trade Name Freq PRN Reason Stop Dose Admin Albuterol 4 puff 04/13/21 14:44 Albuterol Sulfate (*Sp) Aerosol 1 Puff INHALATION QIDRT PRN Shortness Of Breath Amlodipine Besylate 5 mg 04/16/21 09:00 04/19/21 08:46 Amlodipine Besylate 5 Mg Tablet PO 5 mg QAM JOSEPHIEN Administration Benzonatate 100 mg 04/14/21 01:17 04/14/21 07:55 Benzonatate 100 Mg Capsule BY MOUTH 100 mg QID PRN Administration Cough Dexamethasone Sodium Phosphate 6 mg 04/14/21 09:00 04/19/21 08:46 Dexamethasone Sod Phos Inj 4 Mg/Ml Vial IV PUSH 04/23/21 09:01 6 mg DAILY JOSEPHINE Administration Enoxaparin Sodium 40 mg 04/14/21 09:00 04/19/21 08:46 Enoxaparin 40 Mg/0.4 Ml Syringe SUB-Q 40 mg Q12HR JOSEPHINE Administration Ondansetron HCl 4 mg 04/13/21 14:44 Ondansetron Inj 4 Mg
[2021-04-19 16:00] VITALS: BP 152/56; PULSE 71; RESP 14; TEMP 36; O2SAT 94
[2021-04-19 20:00] VITALS: BP 128/70; PULSE 65; RESP 20; TEMP 36.6; O2SAT 91
[2021-04-20] VITALS (8 sets, daily range): BP systolic 129–148; BP diastolic 50–73; PULSE 56–68; RESP 16–20; TEMP 35.8–36.5; O2SAT 90–96
[2021-04-20 06:46] LABS: Basophils Percent Auto 0.3 % (0.2-1.2); Eosinophils Absolute Auto 0.1 K/mm3 (0-0.3); Eosinophils Percent Auto 0.4 % (0-4.4); Hematocrit 36.4 % (42.0-52.0); Hemoglobin 11.5 g/dL (14.0-18.0); Immature Granulocyte Absolute 0.23 K/mm3 (0.00-0.031); Immature Granulocyte Percent A 2.1 % (0-0.5); Lymphocytes Absolute Auto 1.67 K/mm3 (0.9-3.2); Mean Corpuscular HGB Conc 31.6 g/dl (32-36); Mean Corpuscular Volume 82.4 fl (80-100); Mean Platelet Volume 10.6 fl (7.4-10.4); Monocytes Absolute Auto 0.7 K/mm3 (0.1-0.6); Monocytes Percent Auto 6.4 % (2.6-8.5); Neutrophils Absolute Auto 8.5 K/mm3 (1.3-6.7); Neutrophils Percent Auto 75.8 % (45.5-73.1); Platelet Count Result 424 k/mm3 (150-375); Red Blood Count 4.42 M/mm3 (4.6-6.20); Red Cell Distribution Width 13.5 % (11.5-14.5); White Blood Count 11.2 K/mm3 (4.5-10.0)
[2021-04-20 07:09] LABS: Anion Gap 7 mmol/L (8-16); Blood Urea Nitrogen 28 mg/dL (9-20); CRP 1.9 mg/dL (<1.0); Calcium 9.9 mg/dL (8.4-10.2); Carbon Dioxide 23 mmol/L (22-30); Chloride 104 mmol/L (98-107); Estimated CRCL calculation 65 ml/min; Estimated Glomerular Filt Rate > 60; Glucose 94 mg/dL (75-110); Lactate Dehydrogenase 638 U/L (313-618); Potassium 4.4 mmol/L (3.4-5.0); Sodium 134 mmol/L (137-145)
[2021-04-20] MEDS: ENOXAPARIN 40 MG/0.4 ML SYRINGE SUB-Q ×2 (09:38→21:59)
[2021-04-20] MEDS: amLODIPine BESYLATE 5 MG TABLET PO (09:39)
[2021-04-20] MEDS: DEXAMETHASONE SOD PHOS INJ 4 MG/ML VIAL 6 MG IV PUSH (09:39)
--- NOTE | 2021-04-20 14:48 | PM.IMPN ---
Progress Note: A&P Assessment and Plan (1) Bilateral pneumonia: Code(s): J18.9 - Pneumonia, unspecified organism Status: Acute Assessment and Plan: The patient is 70-year-old man with no chronic medical history, who presented to the emergency room after being diagnosed with COVID-19 on 04/09/2021 with symptoms of shortness of breath. initial vitals showed he was afebrile, non tachycardic, increased respiratory rate of 22, blood pressure elevated 159/71, oxygen saturation 93% on 2 L via nasal cannula. Initial labs showed slight anemia with a hemoglobin of 12, elevated neutrophils with normal white blood cell count, elevated D-dimer at 2.34, normal coag panel otherwise. Slight hyponatremia at 134, normal renal function, elevated CRP, LDH and ferritin. BNP was elevated at 1140. troponin was within normal limits. Chest x-ray showed Moderate to large amount of bilateral acute airspace disease probably COVID pneumonia. Echocardiogram was ordered which showed normal EF, moderately increased LVH, diastolic grade 1 dysfunction And Moderate aortic valve regurgitation. he was admitted into the hospital for COVID-19 pneumonia. During his hospitalization his oxygenation increased to 5 L via nasal cannula. He was receiving IV Remdesivir, dexamethasone with a slow improvement of his symptoms. The patient had had a CTA of his chest on 04/13/2021 with no signs of a pulmonary embolism. He has been on Lovenox during hospitalization. Repeat chest x-ray is unchanged 04/17/21. currently he is on 3 L of oxygen via nasal cannula which has been stable for the last 2 days. Continue decadron, and lovenox. Will give him another dose of IV Remdesivir since he is still hospitalized Utilize o2 for sats <90 and continue to wean Inflammatory markers are continuing to trend down BNP elevated, no further crackles with one time dose of lasix 04/17/21 but pt does not feel any improvement IV abx stopped, no signs of bacterial infection Pt unvaccinated and plans to get the covid vaccine in 3 months Likely d/c tomorrow after home oxygen evaluation is completed as long as he continues to feel well. (2) COVID: Code(s): U07.1 - COVID-19 Status: Acute Assessment and Plan: As above (3) Elevated BP without diagnosis of hypertension: Code(s): R03.0 - Elevated blood-pressure reading, without diagnosis of hypertension Status: Acute Assessment and Plan: Blood pressure 134/55 at this time. It was elevated up to 182/67 in the past -Amlodipine started 04/16/21 and his bp trends have been better. Plan to continue with that outpt And have him check his blood pressure twice daily and follow-up with primary care provider for further evaluation adjustments if necessary. (4) Aortic regurgitation: Code(s): I35.1 - Nonrheumatic aortic (valve) insufficiency Status: Acute Assessment and Plan: At least moderate amount of AR on echo -Will need routine monitoring outpt -no signs of HF -pt informed, agreed to f/u with pcp Time Spent With Patient Time with patient: 25 - 35 minutes Subjective Date/time seen: 04/20/21 14:48 Interval history: Date of Service 04/20/21: The patient reports feeling well today. He denies much cough at this time. He still having some shortness of breath with exertion. He denies any more fevers, chills at this time. He denies any chest pain, nausea, vomiting, abdominal pain, leg swelling, calf pain or any other symptoms at this time. Review of Systems Review of Systems: All systems reviewed & are unremarkable except as noted in HPI and below Exam Narrative: Exam Narrative: General: 70-year-old man sitting up on the couch watching TV. Appears comfortable on 3L via NC. In no acute distress. Skin: No jaundice or cyanosis. Good skin turgor. Neck: Full range of motion. Supple. Respiratory: Lungs are clear to auscultation bilaterally. No whe
[2021-04-20 16:04] LABS: Alanine Aminotransferase 31 U/L (4-50); Estimated CRCL calculation 59 ml/min; Estimated Glomerular Filt Rate > 60; INR 1.1; Prothrombin Time 13.6 Seconds (11.1-14.7)
[2021-04-20] MEDS: REMDESIVIR 100 MG/NS 250 ML 100 MG/250 ML BAG 250 MG IVPB (21:59)
[2021-04-21 06:55] LABS: Alanine Aminotransferase 31 U/L (4-50); Estimated CRCL calculation 59 ml/min; Estimated Glomerular Filt Rate > 60
[2021-04-21 07:03] LABS: Prothrombin Time 13.3 Seconds (11.1-14.7)
[2021-04-21 07:51] VITALS: O2SAT 94
[2021-04-21 08:00] VITALS: BP 147/57; PULSE 58; RESP 20; TEMP 36.5; O2SAT 91
[2021-04-21] MEDS: ENOXAPARIN 40 MG/0.4 ML SYRINGE SUB-Q (09:52)
[2021-04-21] MEDS: amLODIPine BESYLATE 5 MG TABLET PO (09:53)
[2021-04-21] MEDS: DEXAMETHASONE SOD PHOS INJ 4 MG/ML VIAL 6 MG IV PUSH (09:54)
--- NOTE | 2021-04-21 11:53 | PCNWS ---
Weekly nutritional screen. Spoke with nursing, she stated patient is doing great and is tolerating current diet with adequate intake. No significant weight loss reported. No nutritional needs at this time.
[2021-04-21 12:00] VITALS: BP 148/56; PULSE 64; RESP 20; TEMP 36.8; O2SAT 95
--- NOTE | 2021-04-21 12:22 | PCNSR ---
On 04/21/21, the student,Shannon Aguilar, provided care and completed [facility] documentation on this patient. I have reviewed the student's documentation and agree with the findings.
[2021-04-21 13:00] VITALS: PULSE 65; O2SAT 95
[2021-04-21 13:05] VITALS: PULSE 88; O2SAT 95
[2021-04-21 13:15] VITALS: PULSE 70; O2SAT 95
--- NOTE | 2021-04-21 13:38 | PCRCNOTE ---
HOME O2 EVAL COMPLETE, NO REQUIREMENTS
--- NOTE | 2021-04-21 14:32 | PM.DS ---
DS: Admitting Diagnosis Admitting Diagnosis Admitting Diagnosis: SOB DS: Discharge Diagnosis Discharge Diagnosis (1) Bilateral pneumonia: Code(s): J18.9 - Pneumonia, unspecified organism Status: Acute Assessment and Plan: The patient is 70-year-old man with no chronic medical history, who presented to the emergency room after being diagnosed with COVID-19 on 04/09/2021 with symptoms of shortness of breath. initial vitals showed he was afebrile, non tachycardic, increased respiratory rate of 22, blood pressure elevated 159/71, oxygen saturation 93% on 2 L via nasal cannula. Initial labs showed slight anemia with a hemoglobin of 12, elevated neutrophils with normal white blood cell count, elevated D-dimer at 2.34, normal coag panel otherwise. Slight hyponatremia at 134, normal renal function, elevated CRP, LDH and ferritin. BNP was elevated at 1140. troponin was within normal limits. Chest x-ray showed Moderate to large amount of bilateral acute airspace disease probably COVID pneumonia. Echocardiogram was ordered which showed normal EF, moderately increased LVH, diastolic grade 1 dysfunction And Moderate aortic valve regurgitation. he was admitted into the hospital for COVID-19 pneumonia. During his hospitalization his oxygenation increased to 5 L via nasal cannula. He was receiving IV Remdesivir, dexamethasone with a slow improvement of his symptoms. The patient had had a CTA of his chest on 04/13/2021 with no signs of a pulmonary embolism. He has been on Lovenox during hospitalization. Repeat chest x-ray is unchanged 04/17/21. During his hospitalization, his BNP elevated, no further crackles with one time dose of lasix 04/17/21. he was weaned slowly off of his oxygen. He is now resting comfortably on room air and his home oxygen evaluation showed he does not need any more oxygen upon discharge. He will continue oral dexamethasone for 2 more days for total of 10 days of Steroid treatment he was given albuterol inhaler as needed for shortness of breath told him about getting a pulse oximeter and he says he has 1. To continue checking his oxygenation and return to ER warnings given. The patient understands and agrees the plan all questions answered. IV abx were discontinued since he had no signs of bacterial infection Pt unvaccinated and plans to get the covid vaccine in 3 months (2) COVID: Code(s): U07.1 - COVID-19 Status: Acute Assessment and Plan: As above (3) Elevated BP without diagnosis of hypertension: Code(s): R03.0 - Elevated blood-pressure reading, without diagnosis of hypertension Status: Acute Assessment and Plan: Blood pressure 147/57 at this time. It was elevated up to 182/67 in the past -Amlodipine started 04/16/21 and his bp trends have been better. Plan to continue with that outpt And have him check his blood pressure twice daily and follow-up with primary care provider for further evaluation adjustments if necessary. (4) Aortic regurgitation: Code(s): I35.1 - Nonrheumatic aortic (valve) insufficiency Status: Acute Assessment and Plan: At least moderate amount of AR on echo -Will need routine monitoring outpt -no signs of HF -pt informed, agreed to f/u with pcp DS: Summary Hospital Course Hospital Course: See above Status at Discharge Cognitive/behavioral status at discharge: Stable, improved. Time Spent with Patient Time attestation: Total time spent providing and/or coordinating discharge services: 42 Time spent: Greater than 30 minutes Exam Narrative: Exam Narrative: General: 70-year-old man sitting up on the couch watching TV. Appears comfortable on room air. In no acute distress. Skin: No jaundice or cyanosis. Good skin turgor. Neck: Full range of motion. Supple. Respiratory: Lungs are clear to auscultation bilaterally. No wheezing, rales or rhonchi. No bony chest wall tender
== END 2021-04-21 15:10 | disposition home or self-care (01) | DRG 177 ==
LOC: ANHED 12:24 → ANH3MEDSUR 15:15
PROVIDERS: Emergency Medicine; Internal Medicine; Nurse Practitioner; Physician Assistant; Admitting Provider Internal Medicine; Emergency Provider General Practice; PCP Family Medicine Adolescent Medicine; Visit Provider Physician Assistant
DX: U07.1 COVID-19 (principal); J12.82 Pneumonia due to coronavirus disease 2019; E87.1 Hypo-osmolality and hyponatremia; I35.1 Nonrheumatic aortic (valve) insufficiency; I10 Essential (primary) hypertension
CPT/HCPCS: 36415; 36430; 71045; 71275; 80048; 80053; 80076; 82565; 82728; 83615; 83880; 84460; 84484; 85025; 85027; 85380; 85610; 85652; 85730; 86140; 86900; 86901; 87040; 93005; 93306; 94618; 96361; 96365; 96367; 96372; 96375; 99285; A9270; G0378; J0456; J0696; J1100; J1650; J1940; J7030; J7050; J7060; J8540; P9059; Q9967

== ENCOUNTER 2021-04-23 16:44 | Observation (INO) | payer MEDICARE, SELFPAY ==
--- NOTE | ~2021-04-23 | CT_ITS ---
EXAMINATION: CTA chest PE protocol DATE: 04/23/2021 18:37 INDICATION: Shortness of breath. Approximately. COVID positive. Positive d-dimer. TECHNIQUE: Computed tomography (CT) pulmonary angiogram of the chest was performed with 100 mL Omnipa que-350 intravenous contrast. Additional 3D reconstructions utilizing coronal maximum intensity proje ction (MIP) were performed. Automated exposure control and iterative reconstruction technique were em ployed. The dose-length product was 433.33 mGy-cm. COMPARISON: 04/13/2021 FINDINGS: Excellent contrast opacification of the pulmonary arteries. There is moderate streak artifact from de nse contrast in the superior vena cava and right atrium. Mild to moderate scattered respiratory motio n artifact. Together this decreases sensitivity and specificity in the segmental and subsegmental pul monary arteries. There is unequivocal pulmonary embolism in the right lower lobar pulmonary artery wh ich extends into several segmental and subsegmental pulmonary arteries of the right lower lobe and al so at the origin of the right middle lobar pulmonary artery. Possible additional pulmonary embolism i n subsegmental pulmonary arteries in the left and right upper lobes. Interval evolution of the prior patchy lateral lung disease likely related to COVID pneumonia which formerly with more extensive but generally less dense with a more groundglass appearance. These regions of lung disease have decreased in size but coalesced into more dense and bandlike opacities. No new or enlarging regions of lung di sease, pleural effusion or pneumothorax. Heart size remains normal with no evident right heart strain . No pericardial effusion. Thoracic aorta is normal in caliber with no dissection. No pathologically enlarged thoracic lymphadenopathy. Again seen is a large right chest wall lipoma along the lateral m argin of the trapezius and superficial margin of the serratus anterior. Visualized upper abdomen is u nremarkable. Mild thoracic spondylosis. IMPRESSION: 1. Pulmonary embolism with moderate clot burden involving multiple segmental and subsegmental pulmona ry arteries in the right lower lobe that the reduction of the right middle lobe. There may be additio nal pulmonary emboli in the bilateral upper lobar subsegmental pulmonary arteries however specificiti es decreased by respiratory motion. 2. Interval evolution of diffuse bilateral lung disease consistent with gradually improving COVID pne umonia. Reviewed, dictated and finalized at location A. IMPRESSION: 1. Pulmonary embolism with moderate clot burden involving multiple segmental an d subsegmental pulmonary arteries in the right lower lobe that the reduction of the right middle lobe. There may be additional pulmonary emboli in the bilater al upper lobar subsegmental pulmonary arteries however specificities decreased by respiratory motion. 2. Interval evolution of diffuse bilateral lung disease consistent with gradual ly improving COVID pneumonia.
--- NOTE | ~2021-04-23 | US_ITS ---
EXAMINATION: US venous doppler [facility] DATE: 04/24/2021 09:43 INDICATION: Shortness of breath and chest pain TECHNIQUE: Danielson scale images without and with compression and Doppler images of the bilateral lower e xtremity veins were obtained. COMPARISON: 12/10/2017 FINDINGS: The right common femoral vein, profunda femoral vein, femoral vein, popliteal vein, peroneal trunk, p osterior tibial veins, and greater saphenous vein are patent. The left common femoral vein, profunda femoral vein, femoral vein, popliteal vein, peroneal trunk, po sterior tibial veins, and greater saphenous vein are patent. IMPRESSION: 1. Patent bilateral lower extremity veins. No evidence of deep venous thrombosis. Reviewed, dictated and finalized at location B. IMPRESSION: 1. Patent bilateral lower extremity veins. No evidence of deep venous thrombosi s.
--- NOTE | ~2021-04-23 | XR_ITS ---
EXAMINATION: XR chest 1V portable DATE: 04/23/2021 17:30 INDICATION: Hypoxia. COVID positive. TECHNIQUE: frontal view of the chest was obtained. COMPARISON: Chest radiograph dated 04/17/2021 and 04/13/2021 FINDINGS: There has been some decrease in density of patchy bilateral airspace opacities consistent with improv ing COVID pneumonia. No new airspace opacities, pulmonary edema, pleural effusion or pneumothorax. Th e cardiomediastinal silhouette is normal. IMPRESSION: 1. Some interval decrease in patchy bilateral lung disease consistent with improving COVID pneumonia. Reviewed, dictated and finalized at location A. IMPRESSION: 1. Some interval decrease in patchy bilateral lung disease consistent with impr oving COVID pneumonia.
[2021-04-23 16:48] VITALS: BP 155/76; PULSE 103; RESP 19; TEMP 36.4; O2SAT 87
[2021-04-23 16:52] VITALS: PULSE 99
--- NOTE | 2021-04-23 16:52 | ECG_ITS ---
Measurements Intervals [place] Rate: 102 P: 32 MD: 160 QRS: -32 QRSD: 93 T: 62 QT: 324 QTc: 424 Interpretive Statements SINUS TACHYCARDIA POSSIBLE LEFT ATRIAL ENLARGEMENT LEFT AXIS DEVIATION POSSIBLE LEFT VENTRICULAR HYPERTROPHY POOR R WAVE PROGRESSION, ANTERIOR LEADS BASELINE WANDER- I, III, V2 BORDERLINE ECG Electronically Signed On 04-23-2021 18:03:05 CDT by Morales Clay D.O.
[2021-04-23 17:14] LABS: Basophils Percent Auto 0.1 % (0.2-1.2); Hematocrit 39.1 % (42.0-52.0); Hemoglobin 12.4 g/dL (14.0-18.0); Immature Granulocyte Absolute 0.22 K/mm3 (0.00-0.031); Immature Granulocyte Percent A 1.6 % (0-0.5); Lymphocytes Percent Auto 4.9 % (18.3-44.2); Mean Corpuscular HGB Conc 31.7 g/dl (32-36); Mean Corpuscular Hemoglobin 26.3 pg (26-34); Mean Corpuscular Volume 82.8 fl (80-100); Mean Platelet Volume 9.8 fl (7.4-10.4); Monocytes Absolute Auto 0.4 K/mm3 (0.1-0.6); Monocytes Percent Auto 2.5 % (2.6-8.5); Neutrophils Absolute Auto 12.9 K/mm3 (1.3-6.7); Neutrophils Percent Auto 90.9 % (45.5-73.1); Platelet Count Result 324 k/mm3 (150-375); Red Blood Count 4.72 M/mm3 (4.6-6.20); Red Cell Distribution Width 13.9 % (11.5-14.5); White Blood Count 14.2 K/mm3 (4.5-10.0)
--- NOTE | 2021-04-23 17:14 | ED.GENADULT ---
HPI - General Adult General Chief complaint: Shortness of Breath/Dyspnea Stated complaint: SOB/covid pna Time Seen by Provider: 04/23/21 16:49 Source: patient History of Present Illness HPI narrative: Patient is 70 y/o male complaining of moderate SOB for last 2 days since he was discharged from hospital. He states that exertion like walking upstairs aggravates his SOB. He has minimal cough and no fever. He was recently diagnosed with COVID on 04/09/21 and hospitalized for 8 days. Related Data Home Medications Medication Instructions Recorded Confirmed azithromycin 250 mg PO DAILY 04/13/21 04/23/21 benzonatate 100 mg BYMOUTH QID PRN 04/13/21 04/23/21 Allergies Allergy/AdvReac Type Severity Reaction Status Date / Time No Known Allergies Allergy Verified 04/23/21 16:54 Review of Systems Constitutional: Constitutional: Denies chills, Denies fever(s), Denies headache(s) and Denies weakness Eyes: Eyes: Denies blurry vision ENT: Denies headache(s) and Denies neck pain Cardiovascular: Cardiovascular: Denies chest pain and Reports dyspnea Respiratory: Respiratory: Reports cough and Reports dyspnea Gastrointestinal: Gastrointestinal: Denies abdominal pain, Denies diarrhea, Denies nausea and Denies vomiting Genitourinary: Genitourinary: Denies hematuria and Denies dysuria Musculoskeletal: Musculoskeletal: Denies back pain and Denies neck pain Neurologic: Denies headache(s) and Denies weakness PMF Past Medical History Medical History Hypertension Family History Family History Father Hypertension Social History Social History Smoking status: Never smoker Alcohol intake: current Drinks per week: 1 Substance use: never Gender identity (if verbalized by the patient): Male Spiritual care concerns: No Exam Const: General: no acute distress and well developed Orientation/consciousness: oriented to person, oriented to place, oriented to time and patient oriented x3 HENMT: Head: normocephalic Ears: external ears normal General nose exam: Normal external nose present Eyes: General: appearance normal, both eyes and all related structures Conjunctivae: conjunctivae normal Neck: Neck: normal visual inspection and full ROM Chest: Chest palpation & inspection: normal inspection of the chest and no tenderness Resp: Effort & Inspection: normal respiratory effort Auscultation: rales Cardio: Rate: regular rate Rhythm: regular rhythm GI: GI Palp: No abdominal tenderness and Yes Soft to palpation Skin: General skin exam: normal color and turgor normal Neuro: General: oriented to person, oriented to place, oriented to time and patient oriented x3 Cognition (Neuro): normal cognition Extrem: General: normal to inspection, full ROM and no pedal edema Psych: Appearance: grossly normal Mental Status: mental status grossly normal Affect: normal affect Course Consultations Consultation #1: Discussed with GURU Pichardo, who agrees to admit. Date: 04/23/21 Time: 17:50 Vital Signs Vital signs: Vital Signs Temperature 36.4 C L 04/23/21 16:48 Pulse Rate 103 H 04/23/21 16:48 Respiratory Rate 19 04/23/21 16:48 Blood Pressure 155/76 H 04/23/21 16:48 Pulse Oximetry 87 L 04/23/21 16:48 Temperature 36.4 C L 04/23/21 16:48 Pulse Rate 69 04/23/21 18:11 Respiratory Rate 21 H 04/23/21 18:11 Blood Pressure 153/72 H 04/23/21 18:11 Pulse Oximetry 95 04/23/21 18:11 Medical Decision Making Vital Signs Vital Signs: Vital Signs Temperature 36.4 C L 04/23/21 16:48 Pulse Rate 103 H 04/23/21 16:48 Respiratory Rate 19 04/23/21 16:48 Blood Pressure 155/76 H 04/23/21 16:48 Pulse Oximetry 87 L 04/23/21 16:48 Temperature 36.4 C L 04/23/21 16:48 Pulse Rate 69 04/23/21 18:11 Respiratory Rate 21 H 04/23/21 18:
[2021-04-23 17:17] VITALS: O2SAT 87; O2SAT 97
[2021-04-23 17:17] LABS: Alveolar/Arterial O2 Gradient 79.1 mmHg; Base Excess ABG 0.2 mEq/l (+/-2.0); Carboxyhemoglobin 0.2 % THb (0-2.0); Fractional Inspired Oxygen 28 %; HCO3 ABG 23.1 mEq/l (22.0-26.0); Methemoglobin ABG 0.5 %THb (0-1.5); Oxygen Content ABG 17.7 %vol (16.0-22.0); Oxygen Saturation ABG 96.8 % (95.0-100.0); Oxyhemoglobin 95.3 % THb (90.0-100.0); PCO2 ABG 32.4 mmHg (35.0-45.0); PO2 ABG 82.3 mmHg (80.0-100.0); PO2 FiO2 Ratio Arterial Blood 2.94 %; Total Hemoglobin 13.2 g/dL (12.0-18.0); pH ABG 7.471 (7.350-7.450)
[2021-04-23 17:18] LABS: Device NASAL CANNULA; Site Drawn RIGHT BRACHIAL
[2021-04-23 17:25] LABS: Anion Gap 7 mmol/L (8-16); Blood Urea Nitrogen 31 mg/dL (9-20); Calcium 10.1 mg/dL (8.4-10.2); Carbon Dioxide 23 mmol/L (22-30); Chloride 105 mmol/L (98-107); Estimated Glomerular Filt Rate > 60; Glucose 186 mg/dL (65-110); Potassium 4.8 mmol/L (3.4-5.0); Sodium 135 mmol/L (137-145)
[2021-04-23 18:11] VITALS: BP 153/72; PULSE 69; RESP 21; O2SAT 95
[2021-04-23 18:12] LABS: D Dimer 18.06 ug/mL (<0.48)
[2021-04-23 18:56] LABS: INR 0.9; Prothrombin Time 12.3 Seconds (11.1-14.7)
[2021-04-23 18:57] LABS: Partial Thromboplastin Time 24.3 SECONDS (22.3-36.8)
[2021-04-23] MEDS: ENOXAPARIN 100 MG/ML SYRINGE SUB-Q (19:13)
--- NOTE | 2021-04-23 20:30 | ADMGEN ---
This patient, Hemal Tracy, was admitted to [facility] Surg Room 329-01. Patient/family oriented to hospital policies and general routines including ID bracelet, bed and alarms, visiting hours, pain management, procedures, bathroom and other care routines, personal items, smoking policy, room service/diet, and visiting hours. Information on how to activate the Rapid Response Team has been discussed. Patient/Family are encouraged to report perceived risks to care and to ask questions if they do not understand what they are told or what they should do.
[2021-04-23 21:18] VITALS: BP 164/69; PULSE 63; RESP 20; TEMP 36.2; O2SAT 97
--- NOTE | 2021-04-23 22:54 | PC.NURSE ---
20:55 Spoke with Anupama handle sander operator. Patient Covid positive on 04/09. OK to take patient off isolation for Covid.
[2021-04-24] VITALS (13 sets, daily range): BP systolic 143–167; BP diastolic 61–70; PULSE 54–63; RESP 18–20; TEMP 36.1–36.9; O2SAT 91–97
--- NOTE | 2021-04-24 | ECHOL_ITS ---
Patient Info Name: Hemal Tracy Age: 70 years : 1950 Gender: Male Ht: 72 in Wt: 215 lbs BSA: 2.25 m2 HR: 65 bpm BP: 167 / 66 mmHg Heart Rhythm: Sinus Rhythm Technical Quality: Good Exam Date: 04/24/2021 1:19 PM Exam Location: [facility] Pulmonary Exam Room: [facility] Patient Status: Inpatient Admit Date: 04/23/2021 Staff Ordering Physician: Isela Mares PA-C Coremaker Helper: Paloma Kerr RDCS Attending Provider: Isela Mares PA-C Referring Physician: Suzan QUEZADA; Exam Type: CA echo limited Study Info Indications - S/P COVID PNEUMONIA PULM EMBOLISM EVAL EF RT HRT STRAIN Limited two-dimensional transthoracic echocardiogram is performed. Summary 1. Limited study with limited views. 2. Left ventricular chamber dimension is normal. 3. Left ventricular systolic function is normal, estimated at 65-70%. 4. Right ventricular chamber dimension is normal. 5. Right ventricular systolic function is normal. 6. There is mild tricuspid valve regurgitation. 7. Mild pulmonary hypertension, estimated pulmonary arterial systolic pressure is 36 mmHg. Left Ventricle Left ventricular chamber dimension is normal. Left ventricular systolic function is normal, estimated at 65-70%. Limited study with limited views. Right Ventricle Right ventricular chamber dimension is normal. Right ventricular systolic function is normal. Aortic Valve The aortic valve is not well visualized. Pulmonic Valve The pulmonic valve is not well visualized. Mitral Valve The mitral valve has normal leaflets. There is trace mitral valve regurgitation. The mitral valve annulus is moderately calcified. Tricuspid Valve The tricuspid valve leaflets are normal. There is mild tricuspid valve regurgitation. Mild pulmonary hypertension, estimated pulmonary arterial systolic pressure is 36 mmHg. Pericardium/Pleural The pericardium appears normal. There is small pericardial effusion. Inferior Vena Cava Normal inferior vena cava with >50% collapse upon inspiration consistent with normal right atrial pressure, 5 mmHg. Pulmonic Valve Name Value Normal PV Doppler PV Peak Gradient 2 mmHg Tricuspid Valve Name Value Normal TV Regurgitation Doppler TR Peak Velocity 277 cm/s TR Peak Gradient 31 mmHg Estimated PAP/RSVP RA Pressure 5 mmHg <=5 PA Systolic Pressure 36 mmHg <36 RV Systolic Pressure 36 mmHg <36 Ventricles Name Value Normal LV Fractional Shortening/Ejection Fraction 2D/MM LV Diastolic Volume (4C MOD)
--- NOTE | 2021-04-24 00:50 | PM.IMHP ---
H&P: HPI History of Present Illness Date/Time: 04/23/21 [id number] this is a 70-year-old male patient who was just discharged from here on 04/21/2021 after being here for several days due to COVID-19. The patient had received steroid treatment. The patient had gone home on oxygen. He had been successfully weaned off of his oxygen prior to going home. The patient also was found to have aortic regurgitation [place] in the hospital. The patient had been on subcu Lovenox while he was inpatient here. Today the patient return to the emergency room due to moderate shortness of breath for at least the last 2 days. Since he was discharged from the hospital. Patient's shortness of breath was exerted by walking up stairs. He still continues to have a mild cough but no fever. Patient was diagnosed was COVID-19 on 04/09/2021. Chest x-ray today shows small interval decrease in patchy bilateral lung disease consistent with improving COVID-19 pneumonia. CTA was read as. Pulmonary embolism with moderate clot burden involving multiple segmental and subsegmental pulmonary arteries in the right lower lobe that the reduction of the right middle lobe. There may be additional pulmonary emboli in the bilateral upper lobar subsegmental pulmonary arteries however specificities decreased by respiratory motion. 2. Interval evolution of diffuse bilateral lung disease consistent with gradually improving COVID pneumonia. the patient was given subcu Lovenox in the emergency room. The patient was placed on oxygen at 2 L per nasal cannula. Patient's pulse ox was noted to be 87% Prior to the oxygen. The patient is being admitted to observation status on the date of service of 04/23/2021. Chief Complaint: shortness of breath Review of Systems Review of Systems: All systems reviewed & are unremarkable except as noted in HPI and below Constitutional: Constitutional: Reports as per HPI and Reports no additional constitutional complaints Eyes: Eyes: Reports as per HPI and Reports no additional eye complaints ENT: Reports system reviewed and no additional complaints, except as documented and Reports Normal hearing present Cardiovascular: Cardiovascular: Reports no additional cardiovascular complaints Respiratory: Respiratory: Reports no additional respiratory complaints and Reports no additional respiratory complaints Gastrointestinal: Gastrointestinal: Reports as per HPI and Reports no additional gastrointestinal complaints Musculoskeletal: Musculoskeletal: Reports no additional musculoskeletal complaints Integumentary/Breasts: Skin/Breast: Reports system reviewed and no additional complaints, except as docu and Reports as per HPI Neurologic: Reports system reviewed and no additional complaints, except as documented, Reports as per HPI and Reports Normal hearing present Psychiatric: Psychiatric: Reports no additional psychiatric complaints and Reports as per HPI Endocrine: Endocrine: Reports no additional endocrine complaints Hematologic/Lymphatic: Hematologic/Lymphatic: Reports no additional hematologic/lymphatic complaints Allergic/Immunologic: Allergic/Immunologic: Reports no additional allergic/immunologic complaints PMFSH Past Medical History Medical History (Updated 04/24/21 @ 01:01 by Kylee Seymour NP) Aortic regurgitation Hypertension Family History Family History Father Hypertension Gout Social History Social History Social History: The patient lives at home with his and she is a durable power commercial attorney for healthcare. The patient is a full code. The patient is retired. He has a son and a daughter. The patient is retired from [email or web address]. Smoking status: Never smoker Alcohol intake: current Drinks per week: 1 Substance use: never Gender identity (if verbalized by the patient): Male Spiritual care concerns: No
[2021-04-24] MEDS: amLODIPine BESYLATE 5 MG TABLET PO (08:54)
[2021-04-24] MEDS: DEXAMETHASONE 2 MG TABLET 6 MG PO (08:54)
[2021-04-24] MEDS: APIXABAN 5 MG TABLET 10 MG PO ×2 (08:54→20:22)
[2021-04-24] MEDS: AZITHROMYCIN 250 MG TABLET PO (08:54)
[2021-04-24] MEDS: PANTOPRAZOLE 40 MG TABLET PO ×2 (10:14→20:23)
[2021-04-24 10:52] LABS: Hematocrit 36.1 % (42.0-52.0); Hemoglobin 11.5 g/dL (14.0-18.0)
[2021-04-24 11:17] LABS: NT Pro B Type Natriuretic Pept 757 pg/mL (5-100); Troponin I < 0.012 ng/mL (0.000-0.034)
[2021-04-24 11:18] LABS: D Dimer 12.12 ug/mL (<0.48)
--- NOTE | 2021-04-24 13:11 | PM.IMPN ---
Progress Note: A&P Assessment and Plan (1) Pulmonary embolism: Qualifiers: Acute cor pulmonale presence: without acute cor pulmonale Chronicity: unspecified Pulmonary embolism type: unspecified Qualified Code(s): I26.99 - Other pulmonary embolism without acute cor pulmonale Code(s): I26.99 - Other pulmonary embolism without acute cor pulmonale Status: Acute Assessment and Plan: The patient is 70-year-old man who was just hospitalized on 04/13/21 after having worsening SOB after being diagnosed with COVID 19 on 04/10/21 and discharged on 04/21/21 on room air after COVID treatment with IV Remdezivir, Dexamethasone and Lovenox, who presented to the emergency room 04/23/21 with dyspnea with exertion. The patient states he was walking up his steps and became very short of breath. He checked his pulse oximeter which showed him to be hypoxic at 72% on room air. Initial vitals showed he was afebrile, tachycardic at 103 bpm, hypoxic at 87% on RA, normal respiratory rate and blood pressure elevated 155/76. Initial labs showed leukocytosis at 14,200, normocytic anemia Hgb 12.4/Hct 39%. D-dimer was elevated at 18. ABG showing respiratory alkalosis on 2L via NC. Normal renal function and electrolytes. CTA Chest showed Pulmonary embolism with moderate clot burden involving multiple segmental and subsegmental pulmonary arteries in the right lower lobe that the reduction of the right middle lobe. There may be additional pulmonary emboli in the bilateral upper lobar subsegmental pulmonary arteries however specificities decreased by respiratory motion. Interval evolution of diffuse bilateral lung disease consistent with gradually improving COVID pneumonia. he was admitted into the hospital with acute pulmonary embolism with hypoxia and started on subcu Lovenox by weight. the patient is being weaned off 2 L of oxygen at this time he was started on Eliquis this morning for treatment of PE with 10 mg twice daily for 7 days, then taper to 5 mg twice daily for 3-6 months venous Dopplers being ordered limited echocardiogram being ordered to rule out any right heart strain troponin and BNP being ordered to rule out any heart string will continue to watch the patient overnight, monitor his oxygenation, telemetry, any bleeding plan for discharge tomorrow if everything comes back normal and get a home oxygen evaluation prior to discharge. (2) Acute respiratory failure with hypoxia: Code(s): J96.01 - Acute respiratory failure with hypoxia Status: Acute Assessment and Plan: secondary to moderate thrombus burden pulmonary embolism. Continue treatment of PE. Wean oxygen as tolerated. Order home oxygen evaluation prior to discharge. Rule out any acute heart strain from PE. (3) Aortic regurgitation: Code(s): I35.1 - Nonrheumatic aortic (valve) insufficiency Status: Acute Assessment and Plan: It was reported as moderate aortic regurgitation on her echo. Patient will need Repeat echocardiogram in 6 months and possible follow-up with cardiology. (4) Hypertension: Code(s): I10 - Essential (primary) hypertension Status: Chronic Assessment and Plan: blood pressure this morning was elevated at 167/66. Continue with Norvasc Continue monitoring make adjustments if needed. Time Spent With Patient Time with patient: 25 - 35 minutes Subjective Date/time seen: 04/24/21 13:11 Interval history: Date of service 04/21/2021: the patient reports feeling better today. He denies any shortness of breath at rest. He has not really been up walking around yet to know if he has dyspnea with exertion. He denies any chest pain or pleuritic chest pain. In the been coughing up any sputum. He denies any fevers, chills, nausea, vomiting, abdominal pa
[2021-04-25] VITALS (8 sets, daily range): BP systolic 147–153; BP diastolic 63–66; PULSE 52–74; RESP 14–18; TEMP 35.9–36.4; O2SAT 90–98
--- NOTE | 2021-04-25 01:42 | ECG_ITS ---
Measurements Intervals [place] Rate: 88 P: 170 VT: 220 QRS: 166 QRSD: 173 T: -17 QT: 478 QTc: 581 Interpretive Statements ACCLERATED JUNCTIONAL RHYTHM RIGHT AXIS DEVIATION RIGHT BUNDLE BRANCH BLOCK HIGH LATERAL INFARCT, AGE INDETERMINATE ABNORMAL ECG Electronically Signed On 04-25-2021 10:04:04 CDT by Morales Clay D.O.
--- NOTE | 2021-04-25 02:02 | PC.NURSE ---
talked to Jossie about patients vent rhythm on tele, pt flipped from sinus chelita to this rhythm and then would convert back. Got a set of vitals which I entered into the chart. She advised calling Dr. Alvarez since the pt is normal sinus chelita and has a PE. Dr. Alvarez asked for a stat EKG as well as potassium and mag levels. The EKG showed sinus rhythm with first AV block and right bundle branch block. Dr. Alvarez said there is no need for further orders at this time. I will continue to watch his tele/wait for his lab results and follow as necessary. -JOSUÉ SNYDER
[2021-04-25 02:31] LABS: Magnesium 2.1 mg/dL (1.6-2.3); Potassium 4.5 mmol/L (3.4-5.0)
[2021-04-25 06:32] LABS: Basophils Percent Auto 0.1 % (0.2-1.2); Eosinophils Percent Auto 0.1 % (0-4.4); Hematocrit 38.6 % (42.0-52.0); Hemoglobin 12.2 g/dL (14.0-18.0); Immature Granulocyte Absolute 0.14 K/mm3 (0.00-0.031); Immature Granulocyte Percent A 1.3 % (0-0.5); Lymphocytes Absolute Auto 1.42 K/mm3 (0.9-3.2); Lymphocytes Percent Auto 12.9 % (18.3-44.2); Mean Corpuscular HGB Conc 31.6 g/dl (32-36); Mean Corpuscular Hemoglobin 26.5 pg (26-34); Mean Corpuscular Volume 83.9 fl (80-100); Mean Platelet Volume 9.8 fl (7.4-10.4); Monocytes Absolute Auto 0.8 K/mm3 (0.1-0.6); Neutrophils Absolute Auto 8.7 K/mm3 (1.3-6.7); Neutrophils Percent Auto 78.6 % (45.5-73.1); Platelet Count Result 294 k/mm3 (150-375); Red Cell Distribution Width 14.2 % (11.5-14.5)
[2021-04-25 06:43] LABS: Alanine Aminotransferase 25 U/L (4-50); Albumin Level 2.9 g/dL (3.5-5.1); Alkaline Phosphatase 50 U/L (38-126); Anion Gap 2 mmol/L (8-16); Aspartate Amino Transferase 19 U/L (17-59); Blood Urea Nitrogen 32 mg/dL (9-20); Calcium 10.1 mg/dL (8.4-10.2); Carbon Dioxide 29 mmol/L (22-30); Chloride 103 mmol/L (98-107); Estimated Glomerular Filt Rate > 60; Glucose 92 mg/dL (65-110); Magnesium 2.1 mg/dL (1.6-2.3); Potassium 4.4 mmol/L (3.4-5.0); Sodium 134 mmol/L (137-145)
[2021-04-25] MEDS: amLODIPine BESYLATE 5 MG TABLET PO (07:46)
[2021-04-25] MEDS: PANTOPRAZOLE 40 MG TABLET PO (07:46)
[2021-04-25] MEDS: APIXABAN 5 MG TABLET 10 MG PO (07:46)
[2021-04-25] MEDS: DEXAMETHASONE 2 MG TABLET 6 MG PO (07:47)
[2021-04-25 08:14] LABS: D Dimer 7.58 ug/mL (<0.48)
--- NOTE | 2021-04-25 13:03 | PM.DS ---
DS: Admitting Diagnosis Admitting Diagnosis Admitting Diagnosis: SOB <Isela Granados KRISTEN Mares - Last Filed: 04/26/21 07:19> DS: Discharge Diagnosis Discharge Diagnosis (1) Pulmonary embolism: Qualifiers: Acute cor pulmonale presence: without acute cor pulmonale Chronicity: unspecified Pulmonary embolism type: unspecified Qualified Code(s): I26.99 - Other pulmonary embolism without acute cor pulmonale <Isela Darwin Mraes PA-C - Last Filed: 04/26/21 07:19> Code(s): I26.99 - Other pulmonary embolism without acute cor pulmonale <Isela LNicki Mares PA-C - Last Filed: 04/26/21 07:19> Status: Acute <Isela Darwin Mares PA-C - Last Filed: 04/26/21 07:19> Assessment and Plan: The patient is 70-year-old man who was just hospitalized on 04/13/21 after having worsening SOB after being diagnosed with COVID 19 on 04/10/21 and discharged on 04/21/21 on room air after COVID treatment with IV Remdezivir, Dexamethasone and Lovenox, who presented to the emergency room 04/23/21 with dyspnea with exertion. The patient states he was walking up his steps and became very short of breath. He checked his pulse oximeter which showed him to be hypoxic at 72% on room air. Initial vitals showed he was afebrile, tachycardic at 103 bpm, hypoxic at 87% on RA, normal respiratory rate and blood pressure elevated 155/76. Initial labs showed leukocytosis at 14,200, normocytic anemia Hgb 12.4/Hct 39%. D-dimer was elevated at 18. ABG showing respiratory alkalosis on 2L via NC. Normal renal function and electrolytes. CTA Chest showed Pulmonary embolism with moderate clot burden involving multiple segmental and subsegmental pulmonary arteries in the right lower lobe that the reduction of the right middle lobe. There may be additional pulmonary emboli in the bilateral upper lobar subsegmental pulmonary arteries however specificities decreased by respiratory motion. Interval evolution of diffuse bilateral lung disease consistent with gradually improving COVID pneumonia. he was admitted into the hospital with acute pulmonary embolism with hypoxia and started on subcu Lovenox by weight. During the patient's admission he was able to be weaned off oxygen and resting comfortably on room air. Without any shortness of breath or hypoxia with walking around the room. The patient was placed on Eliquis blood thinner for treatment of his pulmonary embolism. An echocardiogram was completed which showed no change in his EF, no right heart strain. Venous Dopplers were negative for any DVT. His troponin was normal, BNP was slightly elevated which could be due to his age which showed no right heart strain. The patient was on telemetry which showed normal sinus rhythm, but would intermittently flip into an accelerated junctional rhythm. I discussed this with Cardiology, Dr. Owen, who reviewed her EKGs and telemetry strips I have printed. He states this could be due to his recent COVID-19 infection verses acute PE. The patient is asymptomatic with all of these events. We discussed placing the patient on a quality assurance monitor final for 14 days for further monitoring. Since the patient has recently had COVID the cardiology office is going to send him his quality assurance monitor final in the mail for him to wear for 14 days and then return to them.He will follow up with PCP after discharge and I called Dr. Almaguer about the patient and needed for Tele Monitor. He will follow up with results. The patient understands and agrees with the plan. All questions answered. <Isela Mares PA-C - Last Filed: 04/26/21 07:19> (2) Acute respiratory failure with hypoxia: Code(s): J96.01 - Acute respiratory failure with hypoxia <Isela Mares PA-C - Last Filed: 04/26/21 07:19> Status: Acute <Isela Mares PA-C - Last Filed: 04/26/21 07:19> Assessment and Plan: Secondary to moderate thrombus burden pulmonary embolism. Continue paulette
--- NOTE | 2021-04-25 15:12 | PC.NURSE ---
14 day front desk admin sent via mail, arrive in 2 days.
== END 2021-04-25 15:00 | disposition home or self-care (01) ==
LOC: ANHED 18:12 → ANH3MEDSUR 19:12
PROVIDERS: Internal Medicine; Nurse Practitioner; Admitting Provider Internal Medicine; Emergency Provider Emergency Medicine; PCP Family Medicine Adolescent Medicine; Visit Provider Physician Assistant
DX: I26.99 Other pulmonary embolism without acute cor pulmonale (principal); J96.01 Acute respiratory failure with hypoxia; I10 Essential (primary) hypertension; I49.8 Other specified cardiac arrhythmias; I35.1 Nonrheumatic aortic (valve) insufficiency; I36.1 Nonrheumatic tricuspid (valve) insufficiency; I27.20 Pulmonary hypertension, unspecified; Z79.51 Long term (current) use of inhaled steroids; Z86.16 Personal history of COVID-19
CPT/HCPCS: 36415; 36600; 71045; 71275; 80048; 80053; 82375; 82805; 83050; 83735; 83880; 84132; 84443; 84484; 85014; 85018; 85025; 85380; 85610; 85730; 93005; 93308; 93970; 96372; 99285; A9270; G0378; J1650; J8540; Q9967

== ENCOUNTER 2022-08-02 09:57 | Outpatient (CLI) | payer MEDICARE, SELFPAY ==
--- NOTE | 2022-08-02 13:11 | WPDPFTINT ---
PFT Procedure Performed PFT Procedure Performed Plethysmography (Lung Vol) Diffusing Cap (DLCO) Flow Vol Loop Spirometry w/o Bronchodil PFT Interpretation This is a pulmonary function test with spirometry, plethysmography and diffusing capacity. The test was performed and results interpreted in accordance with the 2019 and 2005 ATS/ERS Task Force guidelines respectively using the Global Lung Function Initiative-2012 reference equations. Patient demonstrated good effort and cooperation. Reproducibility criteria were met. The quality of the spirometry maneuver was Grade A. Findings: Spirometry: The contour the inspiratory and expiratory flow tracing are normal. The FVC is 2.95 L, 66% predicted. The FEV1 is 2.27 L, 69% predicted. The FEV1: FVC ratio 77%. Plethysmography: The total lung capacity is 5.34 L, 72% predicted. The functional residual capacity is 2.62 L, 65% predicted. The residual volume is 2.39 L, 91% predicted. Diffusion capacity: The diffusion capacity unadjusted for hemoglobin and carboxyhemoglobin is 19.9, 76% predicted. The diffusing capacity adjusted for alveolar volume is 4.24, 114% predicted. Impression: There is a moderate restrictive ventilatory abnormality. The spirometry is normal without evidence of an obstructive abnormality. The diffusing capacity is normal. There are no prior studies for comparison
== END 2022-08-02 09:58 | disposition home or self-care (01) ==
PROVIDERS: PCP Family Medicine Adolescent Medicine; Visit Provider Family Medicine Adolescent Medicine
DX: R06.00 Dyspnea, unspecified (principal); R94.2 Abnormal results of pulmonary function studies
CPT/HCPCS: 94375; 94726; 94729

== ENCOUNTER 2022-11-28 01:46 | Day surgery (SDC) | payer MEDICARE, SELFPAY ==
[2022-11-14 13:26] VITALS: BMI 28.5
[2022-11-28 09:41] VITALS: BP 145/44; PULSE 50; RESP 18; TEMP 36.1; O2SAT 98
[2022-11-28] MEDS: LACTATED RINGERS 1,000 ML 150 ML IV CONT (09:58)
--- NOTE | 2022-11-28 10:04 | WPDANESEPPF ---
Anes - Initial Pre Proc Eval Procedure: Operation Date: 11/28/22 11:00 Proposed Procedures p Colonoscopy - Edmundo Young MD Date/Time: 11/28/22 10:04 Surgeon: Edmundo Young MD Pre Op Diagnosis: diarrhea, hx colon polyps Patient Data Age: 72 Gender: M Height: 1.83 m Weight: 95 kg Last Vital Signs Temp 97 F L 11/28/22 09:41 Pulse 50 L 11/28/22 09:41 Resp 18 11/28/22 09:41 BP 145/44 H 11/28/22 09:41 Pulse Ox 98 11/28/22 09:41 O2 Del Method Room Air 11/28/22 09:41 Allergies Allergy/AdvReac Type Severity Reaction Status Date / Time No Known Allergies Allergy Verified 11/28/22 09:40 Home Medications Medication Instructions Recorded Confirmed Type albuterol sulfate 90 mcg/actuation 4 puff inhalation QIDRT PRN 04/21/21 11/14/22 Rx aerosol inhaler (Proventil HFA) Shortness Of Breath #8.5 grams amlodipine 5 mg-benazepril 40 mg See Rx Instructions .Route 07/20/22 11/14/22 Rx capsule .COMPLEX #90 caps metoprolol succinate 100 mg See Rx Instructions .Route 08/16/22 11/28/22 Rx tablet,extended release 24 hr .COMPLEX #90 tabs allopurinol 300 mg tablet See Rx Instructions .Route 09/26/22 11/14/22 Rx .COMPLEX #90 tabs fluticasone 250 mcg-salmeterol 50 1 inh inhalation BID #60 ea 10/03/22 11/14/22 Rx mcg/dose blistr powdr for inhalation (Wixela Inhub) Patient hx anesthesia problems: none Family hx anesthesia problems: none Results Review: All pre-operative results and documents have been reviewed as part of the pre-operative evaluation. [facility] Past Medical History Medical History (Updated 11/08/22 @ 14:24 by Ndaia Brown APRN) Accelerated junctional rhythm Aortic regurgitation COVID 04/26 Diverticula of colon History of pulmonary embolism 04/26 Hx of adenomatous colonic polyps Hx of tear of meniscus of knee joint Normal colonoscopy 11/18 Personal history of colonic polyps Suprapubic abdominal pain Surgical History Surgical History H/O sinus surgery History of total left knee replacement 2016 Family History Family History Father Hypertension Gout Acute myocardial infarction Social History Social History Social History: The patient lives at home with his and she is a durable power runway model for healthcare. The patient is a full code. The patient is retired. He has a son and a daughter. The patient is retired from [employer]. Smoking status: Never smoker Second hand tobacco smoke exposure: No Alcohol intake: current Drinks per week: 1 Alcohol use details: rarely Substance use: never Substance use type: does not use Living arrangements: with family Occupation/Education: retired Gender identity (if verbalized by the patient): Male Sexual Orientation (if Verbalized by the Patient): Straight or Heterosexual Spiritual care concerns: No Agree to blood products: Yes Anes - Eval Final PreProcedure Day of Procedure 11/28/22 10:04 Patient weight: overweight Heart: murmur Lungs: clear to auscultation Airway: Mallampati scale class II Neurological: alert and oriented Last oral intake: >/= 8 hours ASA classification: III Emergent: no Anesthetic plan: proceed Anesthesia type and monitoring: general GIVS and standard monitoring Results Review: All pre-operative results and documents have been reviewed as part of the pre-operative evaluation. Informed Consent: The patient's anesthetic plan and its attendant risks and benefits were discussed with the patient/family/POA. Questions were solicited and answers provided to the satisfaction of the patient/family/POA.
--- NOTE | 2022-11-28 10:14 | WPDHPUPDATE1 ---
History and Physical Update Update Date/Time: 11/28/22 10:14 History and Physical has been reviewed, including an updated exam of the patient. There are NO changes in the patient's condition. Risks, benefits, and alternatives have been discussed and questions answered. Patient agrees to proceed with procedure.
[2022-11-28 10:41] VITALS: BP 104/48; PULSE 50; RESP 18; O2SAT 98
[2022-11-28 10:51] VITALS: BP 100/67; PULSE 50; RESP 18; O2SAT 95
[2022-11-28 11:01] VITALS: BP 142/67; PULSE 50; RESP 18; O2SAT 95
== END 2022-11-28 11:07 | disposition home or self-care (01) ==
PROVIDERS: PCP Family Medicine Adolescent Medicine; Visit Provider Internal Medicine Gastroenterology
PROC: 0DJD8ZZ Inspection of Lower Intestinal Tract, Via Natural or Artificial Opening Endoscopic (ICD-10-PCS; CPT 45378; principal; 2022-11-28 11:00)
DX: R19.7 Diarrhea, unspecified (principal); D12.0 Benign neoplasm of cecum; K62.1 Rectal polyp; K57.30 Diverticulosis of large intestine without perforation or abscess without bleeding; K64.8 Other hemorrhoids; Z86.711 Personal history of pulmonary embolism; Z79.51 Long term (current) use of inhaled steroids
CPT/HCPCS: 45380; 45385; 88305; J2704; J7120

== ENCOUNTER 2024-08-17 11:47 | Outpatient (CLI) | payer MEDICARE, SELFPAY ==
--- NOTE | ~2024-08-17 | US_ITS ---
EXAMINATION: US soft tissue groin RT DATE: 08/17/2024 12:10 INDICATION: Unilateral right inguinal hernia without obstruction TECHNIQUE: Multiple grayscale and Doppler ultrasound images of the right groin were obtained. COMPARISON: None FINDINGS: Right inguinal hernia containing small amount of fat which appears mobile with Valsalva. The hernia s ac measures approximately 4.7 x 1.6 cm. No evident herniated bowel. IMPRESSION: 1. Small fat-containing right inguinal hernia. Reviewed, dictated and finalized at location B. DESIGNER DRAFTER
== END 2024-08-17 11:48 | disposition home or self-care (01) ==
LOC: MICIMG 11:48
PROVIDERS: PCP Family Medicine Adolescent Medicine; Visit Provider Nurse Practitioner Family
DX: K40.90 Unilateral inguinal hernia, without obstruction or gangrene, not specified as recurrent (principal)
CPT/HCPCS: 76882

== ENCOUNTER 2024-11-26 10:25 | Outpatient (CLI) | payer MEDICARE, SELFPAY ==
--- OUTSIDE RECORDS SUMMARY | 2024-11-26 10:54 | XMS_ITS | Encounter Summary ---
Author Organization [facility] Address [address] [place] [address] Care Team Providers Care Leather Sorter Name Role Phone Cuba Almaguer MD Primary Care Provider + Encounter Details Date Type Department Care Team (Late st Contact Info) Description 09/04/2018 Lab Requisition [facility] Care DermPath Lab [address] [facility] [place] [id number] Mariela Oconnor MD [address] [facility] [address] [place] [address] Social History Tobacco Use Types Packs/Day Years Used Date Smoking Tobacco: Never Assessed Sex and Gender Information Value Date Recorded Sex Assigned at Not on file Gender Identity Not on file Sexual Orientation Not on file documented as of this encounter Plan of Treatment Not on file documented as of this encounter Procedures Procedure Name Priority Date/Time Associated Diagnosis Comments DERMATOPATH TECHNICAL REPORT Routine 09/03/2018 12:00 AM POLISHING MACHINE OPERATOR documented in this encounter Results * DERMATOPATH TECHNICAL REPORT (09/03/2018 12:00 AM POLISHING MACHINE OPERATOR) Case Report Dermatopathology Report Case: [id number] Authorizing Provider: Mariela Ocononr MD Collected: 09/03/2018 12:00 AM Pathologist: Tyson Allred MD Received: 09/04/2018 06:28 AM Specimen: Skin, right arm 8 4:40 PM POLISHING MACHINE OPERATOR DERMATOPATHOLOGY LABORATORY Addendum 1 At the request of the diagnosing physician, the technical component for MART-1/Melan A and HMB-45 was performed by [facility] Dermatopathology Laboratory. 4:40 PM POLISHING MACHINE OPERATOR DERMATOPATHOLOGY LABORATORY Addendum electronically signed by Tyson Allred MD on 09/09/2018 at 4:40 PM Clinical History Nevus, melanoma, nevus, irregular border, irregular color 4:40 PM [facility] DERMATOPATHOLOGY [facility]OR[facility] Gross Description Specimen A: Received is one formalin filled container labeled with the patient's name and designated right arm. The specimen consists of a shave biopsy measuring 11x8x2 mm. Jar 0. [facility] Dermatopathology [facility] performed the technical component only. 4:40 PM [facility] DERMATOPATHOLOGY [facility]ORAT[facility] Embedded Images 4:40 PM [facility] DERMATOPATHOLOGY [facility] DISCLAIMER An external and internal positive and negative controls are appropriate for the histochemical, immunohistochemical and immunofluorescence stain(s) in this case (if any), except where stated explicitly. The performance characteristics of the stain(s) cited in this report were developed and its performance characteristic determined by the Dermatopathology Laboratory at [facility]. These tests need not be, and therefore are not, approved by the [place] Food and Drug Administration. The tests are used for clinical purposes. 4:40 PM [facility] DERMATOPATHOLOGY [facility]OR[facility]ORY Pathology/Cytolog y TISSUE SPECIMEN FROM SKIN / Unknown 09/03/2018 09/04/2018 6:28 AM POLISHING MACHINE OPERATOR Mariela Oconnor MD LAB - PATHOLOGY/CYTO LOGY ORDERABLES DERMATOPATHOLOGY LABORATORY [facility] - Department of Dermatology [address] [place] [address] [address]th Floor Lab [address] [phone] documented in this encounter Visit Diagnoses Not on filedocumented in this encounter Care Teams Leather Sorter Relationship Specialty Start Date End Date Cuba Almaguer MD [address] [place] [address] PCP - General 12/14/22 documented as of this encounter
--- OUTSIDE RECORDS SUMMARY | 2024-11-26 10:54 | XMS_ITS | Patient Health Summary ---
Author Organization [facility] Address [address] [place] [address] Care Team Providers Care Restaurant Associate Name Role Phone Cuba Almaguer MD Primary Care Provider + Note from [facility],non-owned Affiliates and Associated Physician Practices is amultiple site organization consisting of ambulatory clinics and hospital sitesin [place], [place], [place] and [place]. This disclosure is being madepursuant to the Care Everywhere program and may not contain all information available regarding this patient. Last updated 18.[facility] Social History Tobacco Use Types Packs/Day Years Used Date Smoking Tobacco: Never Assessed Sex and Gender Information Value Date Recorded Sex Assigned at Not on file Gender Identity Not on file Sexual Orientation Not on file Procedures * DERMATOPATHOLOGY(Performed 11/27/2023) * DERMATOPATHOLOGY(Performed 12/25/2022) * DERMATOPATHOLOGY(Performed 12/11/2022) * DERMATOPATHOLOGY(Performed 11/08/2022) * DERMATOPATH TECHNICAL REPORT(Performed 02/04/2020) * DERMATOPATHOLOGY(Performed 11/19/2019) * DERMATOPATH TECHNICAL REPORT(Performed 11/13/2018) * DERMPATH SLIDE CONSULT(Performed 09/11/2018) * DERMATOPATH TECHNICAL REPORT(Performed 09/03/2018) Results * DERMATOPATHOLOGY (11/27/2023 10:14 AM VOTING MACHINE MECHANIC) Only the most recent of5 resultswithin the time period is included. Case Report Dermatopathology Report Case: [id number] Authorizing Provider: Mounika Villagomez MD Collected: 11/27/2023 10:14 AM Ordering Location: [facility] DermPath Lab Received: 11/28/2023 08:06 AM Pathologist: Kinza Farah MD Specimen: Skin, superior to right brow 9:10 AM [facility] DERMATOPATHOLOGY LABORATORY Final Diagnosis Specimen A. SKIN, superior to right brow: BASAL CELL CARCINOMA, INFILTRATIVE PATTERN, WITH KERATINIZATION (C44.319) (see microscopic description and comment) 9:10 AM [facility] DERMATOPATHOLOGY LABORATORY Clinical History R/O BCC Growing, Non-Healing 9:10 AM [facility] DERMATOPATHOLOGY LABORATORY Gross Description Specimen A: Received is one formalin filled container labeled with the patient's name and designated superior to right brow. The specimen consists of a shave biopsy measuring 9x9x2 mm. Jar 0. 9:10 AM [facility] DERMATOPATHOLOGY LABORATORY Microscopic Description Specimen A. SKIN, superior to right brow: Sections show angulate aggregations of basaloid and squamous keratinocytes in the dermis, with fibrotic stroma. Some aggregations show central keratinization. BerEp4 is positive within the basaloid nests and focally positive within those with keratinization. COMMENT: This case has been reviewed by Dr. Janina Farah who concurs with the diagnosis. 9:10 AM [facility] DERMATOPATHOLOGY LABORATORY Disclaimer An external and internal positive and negative controls are appropriate for the histochemical, immunohistochemical and immunofluorescence stain(s) in this case (if any), except where stated explicitly. The performance characteristics of the stain(s) cited in this report were developed and its performance characteristic determined by the Dermatopathology Laboratory at [facility], directed by Dr. Maycol Allred. These tests need not be, and therefore are not, approved by the [place] Food and Drug Administration. The tests are used for clinical purposes. Billing Codes Specimen Charges Stain Charges 48032 1 34000 1 9:10 AM [facility] DERMATOPATHOLOGY LABORATORY Embedded Images 9:10 AM [facility] DERMATOPATHOLOGY LABORATORY Pathology/Cytolo gy TISSUE SPECIMEN FROM SKIN / Unknown 11/27/2023 10:14 AM VOTING MACHINE MECHANIC 11/28/2023 8:06 AM VOTING MACHINE MECHANIC Mounika Villagomez MD LAB - PATHOLOGY/CYT OLOGY ORDERABLES DERMATOPATHOLOGY LABORATORY [facility] Department of Dermatology [facility] [address] [facility], 3rd Floor [address] [phone] * DERMATOPATH TECHNICAL REPORT (02/04/2020 12:00 AM CDT) Only the most recent of3 resultswithin the time period is included. Case Report Dermatopathology Report Case: [id number] Authorizing Provider: Mariela Oconnor MD Collected: 02/04/2020 12:00 AM Ordering Location: [facility] DermPath Lab Received: 02/05/2020 06:47 AM Pathologist: Tyson Allred MD Specimen: Skin, left back 0 1:50 PM CDT DERMATOPATHOLOGY LABORATORY Clinical History Bx proven BCC. Check margins. Previous Bx: [id number]. 0 1:50 PM CDT DERMATOPATHOLOGY LABORATORY Gross Description Specimen A: Received is one formalin filled container labeled with the patient's name and designated left back.The specimen consists of an ellipse measuring [id number] and is oriented with the notch at the 3 o'clock position, not labeled on the requisition. The epidermal surface consists of a centrally located 10x7mm previous biopsy site. The 12 to 6 o'clock margin is inked green. The 6 o'clock to 12 o'clock margin is inked black. The 12 o'clock tip is submitted in cassette 1. The 6 o'clock tip is submitted in cassette 2. The remainder of the ellipse is serially sectioned and submitted in cassettes 3-5. Jar 0. [facility] Dermatopathology Laboratory performed the technical component only. 0 1:50 PM CDT DERMATOPATHOLOGY LABORATORY Embedded Images 0 1:50 PM CDT DERMATOPATHOLOGY LABORATORY DISCLAIMER An external and internal positive and negative controls are appropriate for the histochemical, immunohistochemical and immunofluorescence stain(s) in this case (if any), except where stated explicitly. The performance characteristics of the stain(s) cited in this report were developed and its performance characteristic determined by the Dermatopathology Laboratory at [facility], directed by Dr. Maycol Allred. These tests need not be, and therefore are not, approved by the [place] Food and Drug Administration. The tests are used for clinical purposes. 0 1:50 PM CDT DERMATOPATHOLOGY LABORATORY Pathology/Cytolog y TISSUE SPECIMEN FROM SKIN / Unknown 02/04/2020 02/05/2020 6:47 AM CDT Mariela Oconnor MD LAB - PATHOLOGY/CYTO LOGY ORDERABLES DERMATOPATHOLOGY LABORATORY [facility] - Department of Dermatology [address] [place] [address], 5th Floor Lab B [address] [phone] * DERMPATH SLIDE CONSULT (09/11/2018 12:00 AM [facility]) Case Report Dermatopathology Report Case: [id number] Authorizing Provider: Swetha Newton DO Collected: 09/11/2018 12:00 AM Pathologist: Latha Live MD Received: 09/11/2018 09:55 AM Specimen: Slide(s), Right arm, [id number]# [id number] 8 4:54 PM VOTING MACHINE MECHANIC DERMATOPATHOLOGY LABORATORY Final Diagnosis Specimen A. 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 Swetha Newton, a consult will be performed on 5 slide(s) labeled [id number]. Compound melanocytic proliferation; present at margin. All slides returned. Any additional sections, special stains or immunohistochemical stains performed by our laboratory will be kept here on file. 8 4:54 PM [facility] DERMATOPATHOLOGY LABORATORY Microscopic Description Specimen A. Slide(s), Right arm, OSC# [id number]: This is a compound nevus. There is mild architectural disorder characterized by a lentiginous proliferation of melanocytes between irregular nevus nests of cells along the dermal-epidermal junction. The intradermal component is bland in appearance and matures with depth. There are also single plump, spindle-shaped cells dissecting through collagen bundles. The melanocytes are highlighted by MART-1/Melan A received with the case, which shows a reassuring architecture and somewhat of a wedge shape to the dermal component of the lesion. HMB-45 stain also received with the case shows a reassuring zonal pattern of staining highlighting the epidermal component of the lesion but only the superficialy dermal component. S-100 also highlights the lesion. p16 is retained. Mib-1 shows a very low proliferative index in the lesion. Additional deeper sections were obtained and reviewed. COMMENT: The histologic findings are most consistent with a combined melanocytic nevus, composed of a slight lentiginous banal component and a component that has features of an intradermal Spitz nevus. This case was also reviewed by Dr. Maycol Allred who agrees with the diagnosis. 8 4:54 PM [facility] DERMATOPATHOLOGY LABORATORY Disclaimer An external and internal positive and negative controls are appropriate for the histochemical, immunohistochemical and immunofluorescence stain(s) in this case (if any), except where stated explicitly. The performance characteristics of the stain(s) cited in this report were developed and its performance characteristic determined by the Dermatopathology Laboratory at [facility]. These tests need not be, and therefore are not, approved by the [place] Food and Drug Administration. The tests are used for clinical purposes. Billing Codes Specimen Charges Stain Charges 85947 1 76537 74028 07913 1 1 1 8 4:54 PM VOTING MACHINE MECHANIC DERMATOPATHOLOGY LABORATORY Embedded Images 8 4:54 PM [facility] DERMATOPATHOLOGY LABORATORY Pathology/Cytolog y SLIDE / Unknown 09/11/2018 09/11/2018 9:55 AM VOTING MACHINE MECHANIC Swetha Newton DO LAB - PATHOLOGY/C YTOLOGY ORDERABLES DERMATOPATHOLOGY LABORATORY [facility] - Department of Dermatology [address] [place] [address], [address]th [place] [address], [facility] [phone] Care Teams Restaurant Associate Relationship Specialty Start Date End Date Cuba Almaguer MD [address] [address] PCP - General 12/14/22
--- OUTSIDE RECORDS SUMMARY | 2024-11-26 10:54 | XMS_ITS | Encounter Summary ---
Author Organization [facility] Address [address] [facility] [place] [address] Care Team Providers Care Chain Tender Name Role Phone Cuba Almaguer MD Primary Care Provider + Encounter Details Date Type Department Care Team (Late st Contact Info) Description 09/11/2018 Lab Requisition [facility] [address] [facility] [place], [place] [phone] Swetha Newton DO [address] [facility] [address] [place] [address] Social History Tobacco Use Types Packs/Day Years Used Date Smoking Tobacco: Never Assessed Sex and Gender Information Value Date Recorded Sex Assigned at Not on file Gender Identity Not on file Sexual Orientation Not on file documented as of this encounter Plan of Treatment Not on file documented as of this encounter Procedures Procedure Name Priority Date/Time Associated Diagnosis Comments DERMPATH SLIDE CONSULT Routine 09/11/2018 12:00 AM SHOT POLISHER AND INSPECTOR documented in this encounter Results * DERMPATH SLIDE CONSULT (09/11/2018 12:00 AM SHOT POLISHER AND INSPECTOR) Case Report Dermatopathology Report Case: [id number] Authorizing Provider: Swetha Newton DO Collected: 09/11/2018 12:00 AM Pathologist: Latha Live MD Received: 09/11/2018 09:55 AM Specimen: Slide(s), Right arm, [id number]# [id number] 8 4:54 PM SHOT POLISHER AND INSPECTOR DERMATOPATHOLOGY LABORATORY Final Diagnosis Specimen A. 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 Swetha Newton, a consult will be performed on 5 slide(s) labeled [id number]. Compound melanocytic proliferation; present at margin. All slides returned. Any additional sections, special stains or immunohistochemical stains performed by our laboratory will be kept here on file. 4:54 PM [facility] DERMATOPATHOLOGY LABORATORY Microscopic Description Specimen A. Slide(s), Right arm, OSC# [id number]: This is a compound nevus. There is [...] agrees with the diagnosis. 8 4:54 PM [facility] DERMATOPATHOLOGY LABORATORY Disclaimer An external and internal positive and negative controls are appropriate for the histochemical, immunohistochemical and immunofluorescence stain(s) in this case (if any), except where stated explicitly. The performance characteristics of the stain(s) cited in this report were developed and its performance characteristic determined by the Dermatopathology Laboratory at [facility]. These tests need not be, and therefore are not, approved by the [place] Food and Drug Administration. The tests are used for clinical purposes. Billing Codes Specimen Charges Stain Charges 93948 1 52751 87307 28512 1 1 1 8 4:54 PM SHOT POLISHER AND INSPECTOR DERMATOPATHOLOGY LABORATORY Embedded Images 8 4:54 PM SHOT POLISHER AND INSPECTOR DERMATOPATHOLOGY LABORATORY Pathology/Cytolog y SLIDE / Unknown 09/11/2018 09/11/2018 9:55 AM SHOT POLISHER AND INSPECTOR Swethamiguelito Elam Aman DO LAB - PATHOLOGY/C YTOLOGY ORDERABLES DERMATOPATHOLOGY LABORATORY [facility] - Department of Dermatology [address] [place] [address], 5th Floor Lab [address] [phone] documented in this encounter Visit Diagnoses Not on filedocumented in this encounter Care Teams Chain Tender Relationship Specialty Start Date End Date Cuba Almaguer MD [address] [address] PCP - General 12/14/22 documented as of this encounter
--- OUTSIDE RECORDS SUMMARY | 2024-11-26 10:54 | XMS_ITS | Referral Summary ---
Author Organization [facility] Address [address] [facility] [place] [address] Care Team Providers Care Program Aide Name Role Phone Cuba Almaguer MD Primary Care Provider + Source Comments [facility],non-owned Affiliates and Associated Physician Practices is amultiple site organization consisting of ambulatory clinics and hospital sitesin [place], [place], [place] and [place]. This disclosure is being madepursuant to the Care Everywhere program and may not contain all information available regarding this patient. Last updated 18.[facility] Proenza Schouer Social History Tobacco Use Types Packs/Day Years Used Date Smoking Tobacco: Never Assessed Sex and Gender Information Value Date Recorded Sex Assigned at Not on file Gender Identity Not on file Sexual Orientation Not on file Plan of Treatment Not on file Care Teams Program Aide Relationship Specialty Start Date End Date Cuba Almaguer MD [address] [address] PCP - General 12/14/22
--- OUTSIDE RECORDS SUMMARY | 2024-11-26 10:54 | XMS_ITS | Encounter Summary ---
Author Organization [facility] Address [address] [facility] [place] [address] Care Team Providers Care Scout Leaser Name Role Phone Cuba Almaguer MD Primary Care Provider + Encounter Details Date Type Department Care Team (Late st Contact Info) Description 11/20/2019 Lab Requisition [facility] DermPath Lab [address] [facility], [place] [phone] Mariela Oconnor MD [address] [facility] 3 [place] [address] Social History Tobacco Use Types Packs/Day Years Used Date Smoking Tobacco: Never Assessed Sex and Gender Information Value Date Recorded Sex Assigned at Not on file Gender Identity Not on file Sexual Orientation Not on file documented as of this encounter Plan of Treatment Not on file documented as of this encounter Procedures Procedure Name Priority Date/Time Associated Diagnosis Comments DERMATOPATHOLOGY Routine 11/19/2019 12:0 0 AM REGIONAL CRA documented in this encounter Results * DERMATOPATHOLOGY (11/19/2019 12:00 AM REG[facility]RA) Case Report Dermatopathology Report [id number]: [id number] Authorizing Provider: Mariela Oconnor MD Collected: 11/19/2019 12:00 AM Ordering Location: [facility] DermPath Lab Received: 11/20/2019 07:02 AM Pathologist: Wendi Kim MD Specimen: Skin, left back 0 1:41 PM [facility] DERMATOPATHOLOGY LABORATORY Final Diagnosis Specimen A. SKIN, left back: BASAL CELL CARCINOMA, SUPERFICIAL MULTIFOCAL (C44.519) 0 1:41 PM [facility] DERMATOPATH[facility]Y LABORATORY Clinical History BCC, bleeding. [place] plaque. 0 1:41 PM [facility]ERMATOPATH[facility]Y LABORATORY Gross Description Specimen A: Received is one formalin filled container labeled with the patient's name and designated left back. The specimen consists of a shave measuring 7t4l3ij. Jar 0. 0 1:41 PM [facility] DERMATOPATH[facility]Y LABORATORY Microscopic Description Specimen A. SKIN, left back: Attached to the undersurface of the epidermis, there are small aggregates of basaloid cells with a high nuclear to cytoplasmic ratio and peripheral palisading. 0 1:41 PM [facility] DERMATOPATH[facility]Y LABORATORY Disclaimer An external and internal positive and negative controls are appropriate for the histochemical, immunohistochemical and immunofluorescence stain(s) in this case (if any), except where stated explicitly. The performance characteristics of the stain(s) cited in this report were developed and its performance characteristic determined by the Dermatopathology Laboratory at [facility], directed by Dr. Maycol Allred. These tests need not be, and therefore are not, approved by the [place] Food and Drug Administration. The tests are used for clinical purposes. Billing Codes Specimen Charges Stain Charges 97055 1 0 1:41 PM [facility] DERMATOPATHOLOGY LABORATORY Embedded Images 0 1:41 PM [facility] DERMATOPATH[facility] LABORATORY Pathology/Cytolog y TISSUE SPECIMEN FROM SKIN / Unknown 11/19/2019 11/20/2019 7:02 AM [facility] Mariela Oconnor MD LAB - PATHOLOGY/CYTO LOGY ORDERABLES DERMATOPATHOLOGY LABORATORY [facility] - Department of Dermatology [address] [place] [address], 5th Floor Lab B [place], [place] [phone] [place] [address] documented in this encounter Visit Diagnoses Not on filedocumented in this encounter Care Teams Scout Leaser Relationship Specialty Start Date End Date Cuba Almaguer MD [address] [place] [address] PCP - General 12/14/22 documented as of this encounter
--- OUTSIDE RECORDS SUMMARY | 2024-11-26 10:54 | XMS_ITS | Encounter Summary ---
Author Organization [facility] Address [address] [place] [address] Care Team Providers Care Plisse Machine Operator Helper Name Role Phone Cuba Almaguer MD Primary Care Provider + Encounter Details Date Type Department Care Team (Late st Contact Info) Description 11/14/[address] [facility] D[facility] Lab [address] [facility], [place] [phone] Mariela Oconnor MD [address] [facility] 3 [place] [address] Social History Tobacco Use Types Packs/Day Years [...] Associated Diagnosis Comments DERMATOPATH TECHNICAL REPORT Routine 11/13/2018 12:00 AM CAN VACUUM TESTER documented in this encounter Results * DERMATOPATH TECHNICAL REPORT (11/13/2018 12:00 AM CAN VACUUM TESTER) Case Report Dermatopathology Report Case: [id number] Authorizing Provider: Mariela Oconnor MD Collected: 11/13/2018 12:00 AM Pathologist: Latha Live MD Received: 11/14/2018 07:15 AM Specimen: Skin, right arm 9 1:19 PM CAN VACUUM TESTER DERMATOPATHOLOGY LABORATORY Clinical History Biopsy proven melanocytic proliferation. Check margins. See [id number] 9 1:19 PM CAN VACUUM TESTER DERMATOPATHOLOGY LABORATORY Gross Description Specimen A: Received is one formalin filled container labeled with the patient's name and designated right arm.The specimen consists of an ellipse measuring 45o22v3 mm and is oriented with the suture/notch at the 3 o'clock position not labeled on the requisition. The 12 to 6 o'clock margin is inked green. The 6 o'clock to 12 o'clock margin is inked black. The 12 o'clock tip is submitted in cassette 1. The 6 o'clock tip is submitted in cassette 2. The remainder of the ellipse is serially sectioned and submitted in cassettes 3-4. Jar 0. [facility] Dermatopathology Laboratory performed the technical component only. 1:19 PM [facility] DERMATOPATHOLOGY LABORATORY Embedded Images 1:19 PM [facility] DERMATOPATHOLOGY LABORATORY DISCLAIMER An external and internal positive and negative controls are appropriate for the histochemical, immunohistochemical and immunofluorescence stain(s) in this case (if any), except where stated explicitly. The performance characteristics of the stain(s) cited in this report were developed and its performance characteristic determined by the Dermatopathology Laboratory at [facility], directed by Dr. Maycol Allred. These tests need not be, and therefore are not, approved by the [place] Food and Drug Administration. The tests are used for clinical purposes. 1:19 PM [facility] DERMATOPATHOLOGY LABORATORY Pathology/Cytolog y TISSUE SPECIMEN FROM SKIN / Unknown 11/13/2018 11/14/2018 7:15 AM CAN VACUUM TESTER Mariela Oconnor MD LAB - PATHOLOGY/CYTO LOGY ORDERABLES DERMATOPATHOLOGY LABORATORY [facility] - Department of Dermatology [address] [place] [address], 5th Floor Lab B [place], [place] [phone] [place] [address] documented in this encounter Visit Diagnoses Not on filedocumented in this encounter Care Teams Plisse Machine Operator Helper Relationship Specialty Start Date End Date Cuba Almaguer MD [address] [address] PCP - General 12/14/22 documented as of this encounter
--- OUTSIDE RECORDS SUMMARY | 2024-11-26 10:54 | XMS_ITS | Encounter Summary ---
Author Organization [facility] Address [address] [place] [address] Care Team Providers Care Life Consultant Name Role Phone Cuba Almaguer MD Primary Care Provider + Encounter Details Date Type Department Care Team (Late st Contact Info) Description 11/27/2023 Lab Requisition [facility] - DermPath Lab [address] [facility], [place] [address] Mounika Villagomez MD [address] [facility] [address] [place] [address] Social History Tobacco Use Types Packs/Day Years Used Date Smoking Tobacco: Never Assessed Sex and Gender Information Value Date Recorded Sex Assigned at Not on file Gender Identity Not on file Sexual Orientation Not on file documented as of this encounter Plan of Treatment Not on file documented as of this encounter Procedures Procedure Name Priority Date/Time Associated Diagnosis Comments DERMATOPATHOLOGY Routine 11/27/2023 10:1 4 AM OPERATIONS RESEARCH ENGINEER documented in this encounter Results * DERMATOPATHOLOGY (11/27/2023 10:14 AM OPERATIONS RESEARCH ENGINEER) Case Report Dermatopathology Report Case: [id number] Authorizing Provider: Mounika Villagomez MD Collected: 11/27/2023 10:14 AM Ordering Location: [facility] DermPath Lab Received: 11/28/2023 08:06 AM Pathologist: Kinza Farah MD Specimen: Skin, superior to right brow 9:10 AM OPERATIONS RESEARCH ENGINEER DERMATOPATHOLOGY LABORATORY Final Diagnosis Specimen A. SKIN, superior to right brow: BASAL CELL CARCINOMA, INFILTRATIVE PATTERN, WITH KERATINIZATION (C44.319) (see microscopic description and comment) 9:10 AM OPERATIONS RESEARCH ENGINEER DERMATOPATHOLOGY LABORATORY Clinical History R/O BCC Growing, Non-Healing 4 9:10 AM [facility] DERMATOPATHOLOGY LABORATORY Gross Description Specimen A: Received is one formalin filled container labeled with the patient's name and designated superior to right brow. The specimen consists of a shave biopsy measuring 9x9x2 mm. Jar 0. 4 9:10 AM [facility] DERMATOPATHOLOGY LABORATORY Microscopic Description Specimen A. SKIN, superior to right brow: Sections show angulate aggregations of basaloid and squamous keratinocytes in the dermis, with fibrotic stroma. Some aggregations show central keratinization. BerEp4 is positive within the basaloid nests and focally positive within those with keratinization. COMMENT: This case has been reviewed by Dr. Janina Farah who concurs with the diagnosis. 9:10 AM [facility] DERMATOPATHOLOGY LABORATORY Disclaimer An external and internal positive and negative controls are appropriate for the histochemical, immunohistochemical and immunofluorescence stain(s) in this case (if any), except where stated explicitly. The performance characteristics of the stain(s) cited in this report were developed and its performance characteristic determined by the Dermatopathology Laboratory at [facility], directed by Dr. Maycol Allred. These tests need not be, and therefore are not, approved by the [place] Food and Drug Administration. The tests are used for clinical purposes. Billing Codes Specimen Charges Stain Charges 24441 1 46991 1 4 9:10 AM [facility] DERMATOPATHOLOGY LABORATORY Embedded Images 4 9:10 AM [facility] DERMATOPATHOLOGY LABORATORY Pathology/Cytolo gy TISSUE SPECIMEN FROM SKIN / Unknown 11/27/2023 10:14 AM OPERATIONS RESEARCH ENGINEER 11/28/2023 8:06 AM [facility] Mounika Villagomez MD LAB - PATHOLOGY/CYT OLOGY ORDERABLES DERMATOPATHOLOGY LABORATORY [facility] - Department of Dermatology [address], [address] [phone] documented in this encounter Visit Diagnoses Not on filedocumented in this encounter Care Teams Life Consultant Relationship Specialty Start Date End Date Cuba Almaguer MD [address] [address] PCP - General 12/14/22 documented as of this encounter
--- OUTSIDE RECORDS SUMMARY | 2024-11-26 10:54 | XMS_ITS | Clinical Summary ---
Author Organization [facility] Address [address] [place] [address] Care Team Providers Care Workers' Compensation Mediator Name Role Phone Cuba Almaguer MD Primary Care Provider + Source Comments [facility],non-owned Affiliates and Associated Physician Practices is amultiple site organization consisting of ambulatory clinics and hospital sitesin [place], [place], [place] and [place]. This disclosure is being madepursuant to the Care Everywhere program and may not contain all information available regarding this patient. Last updated 18.[facility] [employer] Social History Tobacco Use Types Packs/Day Years Used Date Smoking Tobacco: Never Assessed Sex and Gender Information Value Date Recorded Sex Assigned at Not on file Gender Identity Not on file Sexual Orientation Not on file Plan of Treatment Health Maintenance Due Date Last Done Comments HEPATITIS C SCREENING 08/07/1966 DTAP/TDAP/TD VACCINES (1 - Tdap) 1967 PNEUMOCOCCAL VACCINE 50+ (1 of 1 - PCV) 1998 ZOSTER VACCINE (1 of 2) 1998 Respiratory Syncytial Virus (RSV) Vaccine Pt: or over 60 yrs (1 - 1-dose 75+ series) 2023 COVID-19 VACCINE ( - 2023-2 5 season) 2024 INFLUENZA VACCINE (#1) 2024 DEPRESSION SCREENING 10/07/2024 MEDICARE AWV CALENDAR YEAR 2024 HEPATITIS B VACCINE Aged Out No longe r eligible based on patient's age to complete this topic HIB VACCINE Aged Out No longer eligi ble based on patient's age to complete this topic HPV VACCINE Aged Out No longer eligi ble based on patient's age to complete this topic MENINGOCOCCAL (Group B) VACCINE Aged Out No longer eligible based on patient's age to complete this topic MENINGOCOCCAL VACCINE Aged Out No dale renee eligible based on patient's age to complete this topic Care Teams Workers' Compensation Mediator Relationship Specialty Start Date End Date Cuba Almaguer MD [address] [facility] [address] [place] [address] PCP - General 12/14/22
--- OUTSIDE RECORDS SUMMARY | 2024-11-26 10:54 | XMS_ITS | Clinical Summary ---
Author Organization [facility] Care Team Providers Care Middle [employer] Baseball Coach Name Role Phone Unavailable Primary Care Provider Unavailabl e Social History Tobacco Use Types Packs/Day Years Used Date Smoking Tobacco: Never Assessed Sex and Gender Information Value Date Recorded Sex Assigned at Not on file Legal Sex Male 1:59 PM GREY GOODS TESTER Gender Identity Not on file Sexual Orientation Not on file Plan of Treatment Health Maintenance Due Date Last Done Comments Hepatitis C Virus (HCV) Screening 1950 TdaP Immunization 1950 Colonoscopy 1993 Colorectal Cancer Screening 1993 Cologuard 1998 Immunochemical Fecal Occult Blood 1998 Pneumococcal Immunization (5 0+ years) (1 of 1 - PCV) 1998 Zoster Immunization (1 of 2) 1998 Respiratory Syncytial Virus (RSV) Immunization (Adult) (1 - 1-dose 75+ series) 2023 Influenza Immunization (#1) 06/07/20240 11/2020, 08/06/2020 SARS-COV-2 Immunization ( season) 2024 11/08/2021, 10/18/2021 Hepatitis B Immunization Aged Out No longer eligible based on patient's age to complete this topic Meningococcal Immunization (ACWY) Aged Out No longer eligible b ased on patient's age to complete this topic Rotavirus Immunization Aged Out No lo nger eligible based on patient's age to complete this topic
--- OUTSIDE RECORDS SUMMARY | 2024-11-26 10:54 | XMS_ITS | Encounter Summary ---
Author Organization [facility] Address [address] [place] [address] Care Team Providers Care Longshore Equipment Operator Name Role Phone Cuba Almaguer MD Primary Care Provider + Encounter Details Date Type Department Care Team (Late st Contact Info) Description 02/05/2020 Lab Requisition [facility] DermPath Lab [address] [facility] [place] [address] Mariela Oconnor MD [address] [facility] [address] [place] [address] Social History Tobacco Use Types Packs/Day Years [...] Associated Diagnosis Comments DERMATOPATH TECHNICAL REPORT Routine 02/04/2020 12:00 AM CDT documented in this encounter Results * DERMATOPATH TECHNICAL REPORT (02/04/2020 12:00 AM CDT) Case Report Dermatopathology Report Case: [id number] Authorizing Provider: Mariela Oconnor MD Collected: 02/04/2020 12:00 AM Ordering Location: [facility] DermPath Lab Received: 02/05/2020 06:47 AM Pathologist: Tyson Allred MD Specimen: Skin, left back 0 1:50 PM CDT DERMATOPATHOLOGY LABORATORY Clinical History Bx proven BCC. Check margins. Previous Bx: [id number]. 0 1:50 PM CDT DERMATOPATHOLOGY LABORATORY Gross Description Specimen A: Received is one formalin filled container labeled with the patient's name and designated left back.The specimen consists of an ellipse measuring 24u01e8ib and is oriented with the notch at [...] and submitted in cassettes 3-5. Jar 0. [facility] Dermatopathology Laboratory performed the technical component only. [...] determined by the Dermatopathology Laboratory at [facility], directed by Dr. Maycol Allred. These tests need not be, and therefore are not, approved by the [place] Food and Drug Administration. The tests are used for clinical purposes. 0 1:50 PM CDT DERMATOPATHOLOGY LABORATORY Pathology/Cytolog y TISSUE SPECIMEN FROM SKIN / Unknown 02/04/2020 02/05/2020 6:47 AM CDT Mariela Oconnor MD LAB - PATHOLOGY/CYTO LOGY ORDERABLES DERMATOPATHOLOGY LABORATORY [facility] - Department of Dermatology [facility] [facility], 5th [place] [address], [facility] [phone] documented in this encounter Visit Diagnoses Not on filedocumented in this encounter Care Teams Longshore Equipment Operator Relationship Specialty Start Date End Date Cuba Almaguer MD [address] [address] PCP - General 3/10/23 documented as of this encounter
--- OUTSIDE RECORDS SUMMARY | 2024-11-26 10:55 | XMS_ITS | Data Portability ---
Author Organization [facility] Main Office Address [address] [place] [address] Care Team Providers Care Dormitory Maid Name Role Phone COLLETTE STRONG Primary Care Provider COLELTTE STRONG Referring Provider [phone] Assessment Encounter Date Assessment Date Assessment LastModified by Organization Details LastModified Time 09/04/2023 09/04/2023 73-year-old patient presents today with right knee pain after a fall on 08/29/2023. He states he was standing in his kitchen when his right leg went underneath of him and he fell directly onto the knee. He felt immediate pain and had trouble ambulating over the next 2 days. He states that is gotten much better in the last few days. He denies any issues with the knee in the past. He has had a knee replacement on the contralateral leg. Review of systems per patient questionnaire Imaging: X-rays reviewed show no acute bony abnormality, no fracture. Mild to moderate degenerative joint space narrowing with some osteophyte formation. Physical exam: Nonantalgic gait. Tenderness with palpation over the lower lateral knee. Bruising present in this area as well. Range of motion 0-150. Discomfort with deep flexion. Positive Chelsea's. Stable Elin's with firm endpoint. Stable posterior drawer, varus and valgus stress. Normal patellar mobility. She can straight leg raise without extensor lag. He likely has a knee contusion, which is getting better over time. He still has some residual pain and brusing, so we recommended [id number] Tylenol, as he cannot take anti-inflammator ies, and voltaren gel to the tender spot. Will have him follow-up in 4-6 weeks to check his progress. Not available 09/04/2023 16:20:49 10/16/2023 10/16/2023 73-year-old patient presents for follow up of right knee pain after a fall on 08/29/2023. He states the knee is feeling much better since his last appointment but he is now experiencing pain and tightness along the back of this thigh. He has been working out multiple times a week, taking tylenol, and using Voltaren gel but it has not resolved. Physical exam: Nonantalgic gait. Tenderness along the hamstrings. ROM 0-140. No pain with palpitation around the knee. We will send him to a course of physical therapy to work on the hamstrings. He can continue to take tylenol and use voltaren as needed. We discussed that he can continue to work out if it is not painful. We will see him back in 4-6 weeks to check his progress. Not available 10/16/2023 20:52:30 Plan of Treatment Reminders Order Date Submit Date Provider Last Modified By Organization Details Last Modified Time Details Appointments None recorded. Lab None recorded. Referral physical therapist referral - Please schedule pt for R knee. Thanks 2023 024 [facility] [place] [facility], [address], [place], [address], 18:03:19 Procedures None recorded. Surgeries None recorded. Imaging XR, knee, 3 view 2022 023 [facility] [place], [address], [place], [address], 23:05:12 Medication Orders None recorded. Patient TargetsNo targets recorded. Patient InstructionsNo instructions recorded. Reason for Referral Physical Therapist Referral for Pain of right knee joint R knee Please schedule pt for R knee. Thanks Referring Physician: Nafisa Brian, Orthopedic Surgery, Encounter Date: 10/16/2023 Results Created Date Observation Date Name Description Value Unit Range Abnormal Flag Note LastModifiedBy Organization Detail LastModifiedTime 09/04/20 23 XR, knee, 3 view No observ ation record ed. [email or web address] [facility] [address], [place], [address], 09/04/2023 16:09:03 Result Notes None recorded. Problems Name Problem SNOMED Code Status Onset Date Resolution Date Notes Provider Name and Address Organization Details Recorded Time Osteoarthr itis of knee 089589166 Active Not Available [facility] 3 13:28:51 Osteoarthr itis 859899940 Active Not Available [facility] 3 13:28:51 Pain of right knee joint 0196747685687 00 Active 2022 NILSA Gonzales, [facility] 3 15:36:05 Problem Notes None recorded. Procedures Surgical History Date Name Laterality Status Provider Name and Address Organization Details Recorded Time Knee Replacement completed NILSA Arguello [facility] 09/04/2023 15:35:33 Imaging Results Imaging Date Name Status LastModified by Organiz ation Details LastModified Time 09/04/2023 XR, knee, 3 view completed [facility] [address], [place], [address], 09/04/2023 16:09:03 Procedure Notes None recorded. Medical Equipment None Reported. Medications Name Sig Start Date Stop Date Status Note LastModified by Organization Details LastModified Time metoprolol succinate ER 100 mg tablet,exten ded release 24 hr TAKE 1 TABLET BY MOUTH EVERY DAY active Not Available Not Available No t Available metronidazol e 500 mg tablet TAKE 1 TABLET BY MOUTH THREE TIMES A DAY FOR 7 DAYS active Not Available Not Available No t Available hydrocodone 7.5 mg-acetamino phen 325 mg tablet 09/03 completed Not Available Not Available Not Available minoxidil 10 mg tablet TAKE 1/2 TABLET BY MOUTH ONCE DAILY active Not Available Not Available No t Available allopurinol 300 mg tablet TAKE 1 TABLET BY MOUTH DAILY TO PREVENT GOUT active Not Available Not Available No t Available hydrochlorot hiazide 25 mg tablet TAKE 1 TABLET BY MOUTH EVERY DAY active Not Available Not Available No t Available lisinopril 40 mg tablet 09/03 completed Not Available Not Available Not Available cefdinir 300 mg capsule TAKE 1 CAPSULE BY MOUTH TWICE A DAY FOR 7 DAYS active Not Available Not Available No t Available amlodipine 5 mg-benazepri l 40 mg capsule TAKE 1 CAPSULE BY MOUTH EVERY DAY active Not Available Not Available No t Available Xarelto 10 mg tablet 09/03 completed Not Available Not Available Not Available Wixela Inhub 250 mcg-50 mcg/dose powder for inhalation active Not Available Not Available N ot Available Vitals Date Recorded Body height Pain severity - 0-10 verbal numeric rating [Score] - Reported Body mass index (BMI) Body weight Provider Name and Address Organization Details Last Updated DateTime 09/04/2023 182.88 cm 6 29.2 kg/m2 85615.36 g Joanne Paige Matthew [facility] 09/04/2023 15:37:41 Date Recorded Body height Body mass index (BMI) Body weight Pain severity - 0-10 verbal numeric rating [Score] - Reported Provider Name and Address Organization Details Last Updated DateTime 10/16/2023 182.88 cm 29.2 kg/m2 02173.36 g 3 Joanne Paige [facility] 10/16/2023 15:23:36 Social History Question Answer Notes LastModified by Organizat ion Details LastModified Time Tobacco Smoking Status Unknown If Ever Smoked Carolina Kennedylanette johnson [facility] 10/16/2023 15:22:32 What Is Your Level Of Alcohol Consumption? Occasional [email or web address] Information not available 09/04/2023 What Was The Date Of Your Most Recent Tobacco Screening? 09/04/2023 [email or web address] Information not available 10/16/2023 Sex: Unknown Functional Status None recorded. Mental Status None recorded. Family History Relationship Description Onset Age of this Age Resolved Age Notes LastModified by Organization Details LastModified Time Father Heart disease Not available 2022 15:34:30 Father Hypertensive disorder [email or web address] Not available 2022 15:34:41 Medical History No medical history recorded. Past Encounters Encounter ID Performer Location Encounter Start Date Encounter Closed Date Diagnosis/Indication Diagnosis SNOMED-CT Code Diagnosis ICD10 Code Diagnosis Note [id number] Nafisa Brian NP [facility] [address] [place] [address] 09/04/2023 15:11:13 09/04/2023 16:06:53 Pain of right knee joint 7859618654 13710 M25.997 [id number] Nafisa Brian, VERIFICATION MANAGER [facility] [address] [place] [address] 10/16/2023 15:20:34 10/16/2023 16:34:10 Pain of right knee joint 3454662788 20882 M25.561 Health Concerns Section Related Observation LastModified by Organization Detai ls LastModified Time None Recorded Concern Status LastModified by Organization Details LastModified Time None Recorded Advance Directives Directive None Recorded Payers Encounter Date Sequence Insurance Name Policy Number Policy Valentino Covered Member ID Valentino Member ID Guarantor Name 09/04/2023 1 [facility] [employer] - [employer] - MEDICARE COMPLETE CHOICE PLAN 1 (MEDICARE REPLACEMENT PPO) [id number] Hemal Tracy Jr [id number] Hemal Tracy 10/16/2023 1 [facility] - AARP - SECURE [employer] - MEDICARE COMPLETE CHOICE PLAN 1 (MEDICARE REPLACEMENT PPO) [id number] Hemal Tracy Jr [id number] Hemal Tracy
--- OUTSIDE RECORDS SUMMARY | 2024-11-26 10:55 | XMS_ITS ---
Author Organization [facility] Address [address] [facility] [address] [place] [address] Care Team Providers Care Transcribing Operators Supervisor Name Role Phone zzzzMigration, zzzzProvider Unavailable Unav ailable REASON FOR VISIT [facility] [place] En[place] Location Date Provider Diagnosis [facility] [address] [facility] [address] [place] [address] 07/27/2023 zzzzProvider zzzzMigration Plan Of Treatment No Information Progress Notes * Hemal JHA ADOB: [birth year] (74 yo M)Acc No.[id number]:07/27/2023 Patient: Hemal NEWBERRY :1950 A ge:72 Y S ex:Male Address:[address] [place] [address] Subjective: * Chief Complaints: * E MR-Tae * Medical History: * Surgical History: * Hospitalization/Major Diagno stic Procedure: * Medications: Objective: * Vitals: * Physical Examination: Assessment: Plan: * Treatment: * Procedure Codes: * * Date:
--- OUTSIDE RECORDS SUMMARY | 2024-11-26 10:55 | XMS_ITS | Patient Health Record ---
Author Organization [facility] Address [address] [facility] [address] [place] [address] Support Name Relationship Address Phone Hemal Tracy Guarantor Unknown [phone] Reason For Referral No Information Medications Medication SIG (Take, Route, Fr equency, Duration) Notes Start Date End Date Status Colchicine 0.6 MG 1 Every Day Oral 07/10/2010 Active Plan Of Treatment No Information Insurance Providers Payer Name Payer Address Payer Phone Subscriber Number Group Number Insured Name Patient Relationship to Insured Coverage Start Date Coverage End Date [employer] o [address] [place], [place] [address] [id number] Hemal Tracy Self - patient is the insured 1
--- OUTSIDE RECORDS SUMMARY | 2024-11-26 10:55 | XMS_ITS ---
Author Organization [facility] Address [address] [facility] [address] [place] [address] Care Team Providers Care Insurance Clerk Name Role Phone zzzzMigration, zzzzProvider Unavailable Unav ailable REASON FOR VISIT [facility] Medications Medication SIG (Take, Route, Fr equency, Duration) Notes Start Date End Date Status Colchicine 0.6 MG 1 Every Day Oral 07/10/2010 Active Encounters Encounter Location Date Provider Diagnosis [facility] [address] [facility] [facility] [address] [place] [address] 07/28/2023 zzzzProvider zzzzMigration Plan Of Treatment No Information Progress Notes * YUDELKA, Hemal ADOB: [birth year] (74 yo M)Acc No.[id number]:07/28/2023 Patient: Hemal NEWBERRY :1950 A ge:72 Y S ex:Male Address:[address] [place] [address] Subjective: * Chief Complaints: * E MR-Tae * Medical History: * Surgical History: * Hospitalization/Major Diagno stic Procedure: * Medications: T akingColchicine 0.6 MG Tablet 1 Every Day Oral Taking Colchicine 0.6 MG Tablet 1 Every Day Oral Objective: * Vitals: * Physical Examination: Assessment: Plan: * Treatment: * Procedure Codes: * * Date:
--- OUTSIDE RECORDS SUMMARY | 2024-11-26 10:55 | XMS_ITS | Referral Summary ---
Author Organization [facility] [address] Address [address] [place] [address] Care Team Providers Care Support Services Specialist Name Role Phone Cuba Almaguer MD Primary Care Prov ider Allergies No known active allergies Medications amLODIPine-shivani zepriL (LOTREL) 5-40 mg per capsule 11/07/2020 Active allopurinoL (ZYLOPRIM) 300 mg tablet Take 300 mg by mouth daily Active azithromycin (Zithromax Z-Titi) 250 mg tablet Take 1 tablet (250 mg total) by mouth daily Take first 2 tablets together, then 1 every day until finished. 6 tablet 02/28/2022 Active albuterol HFA (PROVENTIL HFA,VENTOLIN HFA,PROAIR HFA) 90 mcg/actuation inhaler Inhale 2 puffs every 4 (four) hours as needed for wheezing 1 each 02/28/2022 Active Active Problems Problem Noted Date Diagnosed Date Sensorineural hearing loss (SNHL) of both ears 0 01/03/2021 Tinnitus of both ears 01/03/2021 Social History Tobacco Use Types Packs/Day Years Used Date Smoking Tobacco: Never Smokeless Tobacco: Never Personal Safety Answer Date Recorded Have you ever been in or are you currently in a harmful physical or emotional relationship or is someone making you feel afraid or unsafe? Denies 08/22/2023 Sex and Gender Information Value Date Recorded Sex Assigned at Not on file Legal Sex Male 12:16 AM ELECTROLYSIS INVESTIGATOR Gender Identity Not on file Sexual Orientation Not on file Last Filed Vital Signs Vital Sign Reading Time Taken Comments Blood Pressure 164/64 08/22/2023 3:30 PM ELECTROLYSIS INVESTIGATOR Pulse 51 08/22/2023 3:30 PM ELECTROLYSIS INVESTIGATOR Temperature 36.7 C (98.1 F) 08/22/2023 12:09 PM ELECTROLYSIS INVESTIGATOR Respiratory Rate 17 08/22/2023 3:30 PM ELECTROLYSIS INVESTIGATOR Oxygen Saturation 99% 08/22/2023 3:30 PM ELECTROLYSIS INVESTIGATOR Inhaled Oxygen Concentration - - Weight 97.4 kg (214 lb 11.7 oz) 023 12:09 PM ELECTROLYSIS INVESTIGATOR Height 182.9 cm (6') 08/22/2023 12:09 PM ELECTROLYSIS INVESTIGATOR Body Mass Index 29.12 08/22/2023 12:09 PM ELECTROLYSIS INVESTIGATOR Plan of Treatment Not on file Insurance MEDICARE SOLUTIONS [facility] MEDICARE Address: [place] [id number] [place] [phone] [facility]IC[facility] Address: [facility] [address] [place] [address] MEDICARE SOLUTIONS [facility] MEDICARE Address: [facility] [address] [place] [address] Care Teams Support Services Specialist Relationship Specialty Start Date End Date Cuba Almaguer MD [address] [place] [address] PCP - General Family Medicine 12/29/20
--- OUTSIDE RECORDS SUMMARY | 2024-11-26 10:55 | XMS_ITS | Continuity of Care Document ---
Author Name [facility] Organization [facility] Care Team Providers Care Shuttler Car Name Role Phone [facility] Unavailable Unavailable Problems Combined list of problems from [facility] and [facility] facilities. It does not include entries that were removed or entered in error. Problem Status Onset Date Problem Type Date of Resolution Comments Source Benign essential hypertension (SNOMED CT 8818132) Active Condition [facility] Hearing loss (SNOMED CT 78673981) Active Condition [facility] Knee pain (SNOMED CT 76587321) Active Condition [facility] Medications Combined list of outpatient medications from [facility] and [facility] facilities.Medications provided include 1) outpatient medications from the last 15 months, and 2) patient-reported medications. Medication Details Route Status Patient Instructions Prescription Expires Prescription Number Last Dispense Date Ordering Provider Order Date Order Qty Source LISINOPRIL 40MG TAB TAKE ONE-HALF TABLET BY MOUTH ONCE A DAY ORAL ACTIVE HA GOYAL 2013 [facility] Immunizations Combined list of available immunizations from the [facility] and [facility] facilities. Immunization Series Date Given Administered By Site Reaction Lot Number CVX Code Drug Business Office Technology Instructor Status Comments Source TDAP 2013 115 complet ed Left Deltoid [facility] Encounters Combined list of: 1) Encounters from [facility] facilities going backup to the last 18 months, not all [place] inpatient encounters are included; 2) Encounters from the [facility] facilities going backup to 280 months. Location Location Details Encounter Type Encounter Number Reason For Visit Attending Provider ADM Date DC Date Status Disposition Source [facility] Outpatient Encounter [id number] 09/15 [facility] Social History Combined list of available smoking, tobacco, and other social history from [facility] facilities. Social History Type Response Date Comment Sourc e Tobacco smoking status NHIS LIFETIME NON-USER OF TOBACCO 11/18/2013 [facility]
--- OUTSIDE RECORDS SUMMARY | 2024-11-26 10:55 | XMS_ITS | Clinical Summary ---
Author Organization [facility] [address] Address [address] [place] [address] Care Team Providers Care Compliance Analyst Name Role Phone Cuba Almaguer MD Primary [...] 0 01/03/2021 Tinnitus of both ears 01/03/2021 Surgical History Surgery Date Site/Laterality Comments REPLACEMENT TOTAL KNEE SALIVARY GLAND SURGERY Medical History Medical History Date Comments Allergic rhinitis Hypertension Sinusitis HL (hearing loss) Dizziness Tinnitus Gout Family History Medical History Relation Name Comments Heart disease Father Hypertension Father Relation Name Status Comments Father Social History Tobacco Use Types Packs/Day Years [...] on file Legal Sex Male 12:16 AM ONCOLOGY REP Gender Identity Not on file Sexual Orientation Not on file Obstetrics History Last Filed Vital Signs Vital Sign Reading Time Taken Comments Blood Pressure 164/64 08/22/2023 3:30 PM ONCOLOGY REP Pulse 51 08/22/2023 3:30 PM ONCOLOGY REP Temperature 36.7 C (98.1 F) 08/22/2023 12:09 PM ONCOLOGY REP Respiratory Rate 17 08/22/2023 3:30 PM ONCOLOGY REP Oxygen Saturation 99% 08/22/2023 3:30 PM ONCOLOGY REP Inhaled Oxygen Concentration - - Weight 97.4 kg (214 lb 11.7 oz) 023 12:09 PM ONCOLOGY REP Height 182.9 cm (6') 08/22/2023 12:09 PM ONCOLOGY REP Body Mass Index 29.12 08/22/2023 12:09 PM ONCOLOGY REP Plan of Treatment Health Maintenance Due Date Last Done Comments Depression Screening 1948 Fall Risk Assessment 1948 Hepatitis C Screening 1948 Hepatitis B Screening 1966 Pneumococcal vaccine 65+ (1 of 1 - PCV) 1998 Zoster Vaccine (1 of 2) 1998 Well Visit 65+ 2013 DTaP/Tdap/Td Vaccine (2 - Td or Tdap) 11/18/202309/2014 Influenza Vaccine (#1) 2024 08/06/2020 Insurance MEDICARE SOLUTIONS MED[employer]ARE SOL[employer]IONS [employer] Care Teams Compliance Analyst Relationship Specialty Start Date End Date Cuba Almaguer MD [address] [place] [address] PCP - General Family Medicine 12/29/20
--- NOTE | 2024-11-26 11:19 | ECG_ITS ---
Test Date: 2024-11-26 11:33:50 Measurements Intervals [place] Rate: 51 P: 27 WY: 197 QRS: -19 QRSD: 101 T: 52 QT: 432 QTc: 398 Interpretive Statements SINUS BRADYCARDIA WITH SINUS ARRHYTHMIA LEFT VENTRICULAR HYPERTROPHY BORDERLINE R WAVE PROGRESSION, ANTERIOR LEADS BASELINE ARTIFACT- I, II, III, AVR, AVL, AVF, V1-V2 BORDERLINE ECG No previous ECG available for comparison Electronically Signed On 11-26-2024 11:47:48 DIESEL PLANT OPERATOR by Morales Clay D.O.
[2024-11-26 11:52] LABS: Basophils Absolute Auto 0.1 K/mm3 (0.0-0.1); Eosinophils Absolute Auto 0.3 K/mm3 (0-0.3); Eosinophils Percent Auto 4.4 % (0-4.4); Hematocrit 41.1 % (42.0-52.0); Hemoglobin 12.9 g/dL (14.0-18.0); Immature Granulocyte Absolute 0.02 K/mm3 (0.00-0.031); Immature Granulocyte Percent A 0.3 % (0-0.5); Lymphocytes Absolute Auto 1.94 K/mm3 (0.9-3.2); Lymphocytes Percent Auto 30.8 % (18.3-44.2); Mean Corpuscular HGB Conc 31.4 g/dl (32-36); Mean Corpuscular Hemoglobin 27.8 pg (26-34); Mean Corpuscular Volume 88.6 fl (80-100); Mean Platelet Volume 10.2 fl (7.4-10.4); Monocytes Absolute Auto 0.6 K/mm3 (0.1-0.6); Monocytes Percent Auto 8.7 % (2.6-8.5); Neutrophils Absolute Auto 3.5 K/mm3 (1.3-6.7); Neutrophils Percent Auto 54.8 % (45.5-73.1); Platelet Count Result 250 k/mm3 (150-375); Red Blood Count 4.64 M/mm3 (4.6-6.20); Red Cell Distribution Width 14.5 % (11.5-14.5); White Blood Count 6.3 K/mm3 (4.5-10.0)
== END 2024-11-26 10:26 | disposition home or self-care (01) ==
LOC: ANHSURGERY 10:30
PROVIDERS: PCP Family Medicine Adolescent Medicine; Visit Provider Surgery
DX: K40.90 Unilateral inguinal hernia, without obstruction or gangrene, not specified as recurrent (principal); I10 Essential (primary) hypertension; I35.1 Nonrheumatic aortic (valve) insufficiency; Z01.818 Encounter for other preprocedural examination
CPT/HCPCS: 36415; 85025; 86850; 86900; 86901; 93005

== ENCOUNTER 2024-12-02 00:58 | Day surgery (SDC) | payer MEDICARE, SELFPAY ==
[2024-11-18 09:24] VITALS: BMI 29.5
--- NOTE | 2024-11-18 09:39 | PC.NURSE ---
Addendum entered by Kylee Nance RN 11/18/24 09:47: Pt is to take his Metoprolol the am of surgery, pt is aware JRRN Original Note: Report to the Outpatient Waiting Room, entrance under the green pavilion located off [facility], at time __12:00pm on date _12/02/24 . Planned Procedure Time: __2:00pm .? Time changes happen often and if your time is changed the preop area will call you the afternoon before. - You and your visitor will be asked to self-screen and do not enter if you have any COVID symptoms. Please call surgeon if you need to reschedule. - A mask is optional within the hospital at this time. Patients may have clear liquids (water, carbonated beverages, clear teas, apple juice) until 3 hours prior to surgery with a maximum of 20 ounces. - No food from midnight until time of surgery and no smoking, or chewing tobacco (or any form of nicotine). No chewing gum, candy or mints. ( 1100am) Take only the following medications with a SIP of water on the morning of surgery: ____None DO NOT STOP ANY OF YOUR OTHER PRESCRIPTION MEDICATIONS PRIOR TO SURGERY EXCEPT THE FOLLOWING Hold all vitamins and supplements for 3 days per anesthesiologist. Date to take last dose 11/28/24 Please no make-up, nail israeli, hairspray, perfume, deodorant, or body powder the day of surgery.? No jewelry (including any body piercings) or valuables the day of surgery, leave them at home.? Please take a shower or bath the night before, or the morning of, surgery with an antibacterial soap.? Wear comfortable, loose fitting clothing.? - Jewelry must be removed prior to entering the operating room.? Rings and piercings that are not removed may be cut off. - The hospital will not accept responsibility for valuables.? - Please leave all valuables, including medications, at home the day of surgery. If you are going home after surgery, a licensed commercial driver must drive you home.? - NO public transportation without another adult if you receive anesthesia. - We recommend that an adult stay with you for 24 hours following discharge. - We also recommend that you do not drive, make important decision, drink alcoholic beverages, or take any drugs that were not prescribed by your health care provider for at least 24 hours after your discharge time. Follow any additional instructions given to you from your surgeon. Telephone instructions given to __Patient and asked if any additional questions and then verbalized understanding. Patient advised to call surgeon office or pre surgery nurse liaison [phone] if any additional questions.
--- NOTE | 2024-12-01 12:43 | P.SS_ITS ---
Same Day Admit/Disch: HPI History of Present Illness Chief complaint: Right Inguinal Hernia Narrative: Hemal Tracy Jr. is a 74 year old male who was doing some yd work back in July when he noticed a bulge with some discomfort in the right groin. This bulge was then persistent following this time but would goal way with lying down and sometimes with sitting. He was seen in the office and found to have a reducible right inguinal hernia. The hernia is uncomfortable at times. He is taken to surgery now for robotic laparoscopic repair of his right inguinal hernia. He has medical illnesses of hypertension and gout. [facility] Past Medical History Medical History Hypertension Diverticula of colon Hx of adenomatous colonic polyps Suprapubic abdominal pain Hx of tear of meniscus of knee joint Personal history of colonic polyps History of pulmonary embolism 04/26 Normal colonoscopy 11/18 Accelerated junctional rhythm Aortic regurgitation COVID 04/26 Surgical History Surgical History H/O sinus surgery History of total left knee replacement 2016 Family History Family History Father Hypertension Gout Acute myocardial infarction Social History Social History Social History: The patient lives at home with his and 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 The patient is a full code. The patient is retired. He has a son and a daughter. The patient is retired from [employer]. Smoking status: Never smoker Second hand tobacco smoke exposure: No Alcohol intake: current Drinks per week: 1 Alcohol use details: 3 per month Substance use: never Substance use type: does not use Do You Feel Safe in your Home?: Yes Lack of Transportation: No Lack of Food: Never True Current Housing: I Have Housing Concerned About Future Housing: No Difficulty Paying Gas/Electric Bills: No Difficulty Paying for Meds: No Currently Unemployed: No Education: Bachelor's Degree Difficulty w/ Childcare or Family Care: No Living arrangements: with family Additional living arrangements comments: Occupation/Education: retired Gender identity (if verbalized by the patient): Male Sexual Orientation (if Verbalized by the Patient): Straight or Heterosexual Spiritual care concerns: No Agree to blood products: Yes Same Day Admit/Disch: Med Pre-admit Medications Home Medications ?Medication ?Instructions ?Recorded ?Confirmed ?Type fluticasone 250 mcg-salmeterol 50 1 inh inhalation BID #60 ea 10/03/22 12/02/24 Rx mcg/dose blistr powdr for inhalation (Wixela Inhub) amlodipine 5 mg-benazepril 40 mg See Rx Instructions .Route 10/15/23 12/02/24 Rx capsule .COMPLEX #90 caps metoprolol succinate 100 mg See Rx Instructions .Route 02/05/24 12/02/24 Rx tablet,extended release 24 hr .COMPLEX #90 tabs minoxidil 10 mg tablet 5 mg (1/2 x 10 mg) PO DAILY #90 04/05/24 12/02/24 Rx tabs allopurinol 300 mg tablet See Rx Instructions .Route 09/10/24 12/02/24 Rx .COMPLEX #90 tabs ibuprofen 600 mg tablet 600 mg PO Q6H PRN pain #14 tabs 12/02/24 Rx oxycodone-acetaminophen 5 mg-325 0.5 - 1 tablet PO Q4H PRN pain #10 12/02/24 Rx mg tablet (Percocet) tabs Review of Systems Review of Systems All systems reviewed & are unremarkable except as noted in HPI and below (HPI) Exam Const: General: comfortable, no acute distress, alert and awake HENMT: Head: normocephalic and atraumatic Mouth: Yes Normal oral and palatal mucosa present Eyes: Conjunctivae: conjunctivae normal Pupils: Equal, round and reactive pupils present EOM: EOMs intact bilaterally Neck: Neck: normal visual inspection, no lymphadenopathy and nontender Resp: Effort & Inspection: normal respiratory effort Auscultation: clear to auscultation bilaterally Cardio: Rate: regular rate Rhythm: regular rhythm Heart sounds: no gallops, no murmurs and no rubs GI: Inspection: non-distended GI Palp: Yes Soft to palpation, No Tenderness to palpation present (GI), No Hepatomegaly present and No Splenomegaly present : Male General Exam: Yes hernia (Reducible right inguinal hernia, pulses with cough) Penis: Yes normal penis Scrotum: scrotum normal Testes: Testes normal Skin: Lesions: no lesions Rashes: no rashes Neuro: General: no focal motor deficits and CN's II-XI intact bilaterally Cranial nerves: Yes Equal, round and reactive pupils present, Yes Bilaterally intact EOM present, Yes facial symmetry and Yes Midline tongue present Speech: normal speech Motor exam (neuro): 5/5 motor strength present throughout and Motor abnormalities not present Extrem: General: no clubbing, cyanosis or edema and edema Psych: Affect: normal affect Thought process: Normal thought process present Insight: Good insight present (Psych) DS: Summary Time Spent with Patient Time attestation: Total time spent providing and/or coordinating discharge services: DS: Admitting Diagnosis Discharge Date 12/02/2024 Admitting Diagnosis * Reducible symptomatic right inguinal hernia-plan to proceed with robotic laparoscopic repair with mesh. The procedure, risks, benefits, alternatives have been discussed. The usual length of the surgery in length of recovery have been discussed. The use of mesh has been discussed. All questions were answered. Patient understands and agrees to go ahead. * Essential hypertension * Gout DS: Discharge Diagnosis Discharge Diagnosis (1) Right inguinal hernia: Code(s): K40.90 - Unilateral inguinal hernia, without obstruction or gangrene, not specified as recurrent Status: Chronic Assessment and Plan: Repaired with robotic laparoscopic technique using mesh 12/02/[address] Sood Discharge Plan Discharge Patient Disposition: Home, Self-Care Discharge Instructions: 1. May shower the day after surgery over incisions. 2. Call office for: -Wound increasingly painful or bleeding -Vomiting -Fever of greater than 101 degrees 3. Wear scrotal support at all times for 1 week. Remove for showering and sleeping. 4. If no bowel movement for three days, take 1 oz. (30 ml) Milk of Magnesia, if no results, take Fleets enema. 5. No heavy lifting > 15-20 pounds for 2 weeks. 6. No driving for 3 days or while taking narcotic pain medications. 7. Up walking 10-30 minutes three times per day. 8. Resume previous home medications. 9. Follow-up 10-14 days in office for wound check or as previously scheduled. 10. Oral pain medications prescription to be sent home with patient. 11. NUTRITION: Start out by drinking fluids and increase your diet as tolerated. If you experience nausea, try dry toast, crackers, and 7-UP. If nausea or vomiting persists, contact your surgeon?s office. Patient Language: Citizen Of [place] Stand Alone Forms: General Discharge Instructions Follow-up/Referrals: Mahendra Sood MD [Physician] - 3 Weeks Discharge Medications: New oxycodone-acetaminophen [Percocet] 5-325 mg tablet 0.5 - 1 tablet PO Q4H PRN (Reason: pain) Qty: 10 0RF ibuprofen 600 mg tablet 600 mg PO Q6H PRN (Reason: pain) Qty: 14 0RF Continued fluticasone propion-salmeterol [Wixela Inhub] 250-50 mcg/dose blister with device 1 inh inhalation BID Qty: 60 4RF amlodipine-benazepril 5-40 mg capsule See Rx Instructions .ROUTE .COMPLEX Qty: 90 3RF Dose Instruction: TAKE 1 CAPSULE BY MOUTH EVERY DAY Rx Instructions: TAKE 1 CAPSULE BY MOUTH EVERY DAY metoprolol succinate 100 mg tablet extended release 24 hr See Rx Instructions .ROUTE .COMPLEX Qty: 90 2RF Dose Instruction: TAKE 1 TABLET BY MOUTH EVERY DAY Rx Instructions: TAKE 1 TABLET BY MOUTH EVERY DAY minoxidil 10 mg tablet 5 mg PO DAILY Qty: 90 1RF allopurinol 300 mg tablet See Rx Instructions .ROUTE .COMPLEX Qty: 90 3RF Dose Instruction: TAKE 1 TABLET BY MOUTH DAILY TO PREVENT GOUT Rx Instructions: TAKE 1 TABLET BY MOUTH DAILY TO PREVENT GOUT
[2024-12-02] VITALS (10 sets, daily range): BP systolic 147–175; BP diastolic 47–86; PULSE 46–61; RESP 12–16; TEMP 36.1–36.3; O2SAT 96–100; BMI 29.6
--- OUTSIDE RECORDS SUMMARY | 2024-12-02 01:02 | XMS_ITS | Encounter Summary ---
Author Organization [facility] Address [address] [place] [address] Care Team Providers Care Professional System Administrator Name Role Phone Cuba Almaguer MD Primary Care Provider + Encounter Details Date Type Department Care Team (Late st Contact Info) Description 11/27/2023 Lab Requisition [facility] - DermPath Lab [address] [facility] [place] [address] Mounika Villagomez MD [address] [facility] 3 [place] [address] Social History Tobacco Use Types Packs/Day Years [...] Comments DERMATOPATHOLOGY Routine 11/27/2023 10:1 4 AM OFFICE REP documented in this encounter Results * DERMATOPATHOLOGY (11/27/2023 10:14 AM OFFICE REP) Case Report Dermatopathology Report Case: [id number] Authorizing Provider: Mounika Villagomez MD Collected: 11/27/2023 10:14 AM Ordering Location: [facility] DermPath Lab Received: 11/28/2023 08:06 AM Pathologist: Kinza Farah MD Specimen: Skin, superior to right brow 9:10 AM OFFICE REP DERMATOPATHOLOGY LABORATORY Final Diagnosis Specimen A. SKIN, superior to right brow: BASAL CELL CARCINOMA, INFILTRATIVE PATTERN, WITH KERATINIZATION (C44.319) (see microscopic description and comment) 9:10 AM OFFICE REP DERMATOPATHOLOGY LABORATORY Clinical History R/O BCC Growing, Non-Healing 4 9:10 AM [facility] DERMATOPATHOLOGY LABORATORY Gross Description Specimen A: Received is one formalin filled container labeled with the patient's name and designated superior to right brow. The specimen consists of a shave biopsy measuring 9x9x2 mm. Jar 0. 4 9:10 AM [facility] DERMATOPATHOLOGY LABORATORY Microscopic Description Specimen [...] who concurs with the diagnosis. 9:10 AM [facility] DERMATOPATHOLOGY LABORATORY Disclaimer An external and internal positive and negative controls are appropriate for the histochemical, immunohistochemical and immunofluorescence stain(s) in this case (if any), except where stated explicitly. The performance characteristics of the stain(s) cited in this report were developed and its performance characteristic determined by the Dermatopathology Laboratory at [facility], directed by Dr. Maycol Allred. These tests need not be, and therefore are not, approved by the [place] Food and Drug Administration. The tests are used for clinical purposes. Billing Codes Specimen Charges Stain Charges 09988 1 94822 1 4 9:10 AM [facility] DERMATOPATHOLOGY LABORATORY Embedded Images 4 9:10 AM [facility] DERMATOPATHOLOGY LABORATORY Pathology/Cytolo gy TISSUE SPECIMEN FROM SKIN / Unknown 11/27/2023 10:14 AM OFFICE REP 11/28/2023 8:06 AM [facility] Mounika Villagomez MD LAB - PATHOLOGY/CYT OLOGY ORDERABLES DERMATOPATHOLOGY LABORATORY [facility] - Department of Dermatology [address], [address] [phone] documented in this encounter Visit Diagnoses Not on filedocumented in this encounter Care Teams Professional System Administrator Relationship Specialty Start Date End Date Cuba Almaguer MD [address] [address] PCP - General 12/14/22 documented as of this encounter
--- OUTSIDE RECORDS SUMMARY | 2024-12-02 01:02 | XMS_ITS | Clinical Summary ---
Author Organization [facility] Address [address] [place] [address] Care Team Providers Care Employee Placement Specialist Name Role Phone Cuba Almaguer MD Primary Care Provider + Source Comments [facility],non-owned Affiliates and Associated Physician Practices is amultiple site organization consisting of ambulatory clinics and hospital sitesin [place], [place], [place] and [place]. This disclosure is being madepursuant to the Care Everywhere program and may not contain all information available regarding this patient. Last updated 18.[facility] [employer] Social History Tobacco Use Types Packs/Day Years [...] this topic MENINGOCOCCAL VACCINE Aged Out No adle renee eligible based on patient's age to complete this topic Care Teams Employee Placement Specialist Relationship Specialty Start Date End Date Cuba Almaguer MD [address] [facility] [address] [place] [address] PCP - General 12/14/22
--- OUTSIDE RECORDS SUMMARY | 2024-12-02 01:02 | XMS_ITS | Clinical Summary ---
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
--- OUTSIDE RECORDS SUMMARY | 2024-12-02 01:02 | XMS_ITS | Encounter Summary ---
Author Organization [facility] Address [address] [place] [address] Care Team Providers Care Pharmacy Laboratory Technician Name Role Phone Cuba Almaguer MD Primary Care Provider + Encounter Details Date Type Department Care Team (Late st Contact Info) Description 09/11/2018 Lab Requisition [facility] [address] [facility] [place] [id number] Swetha Newton DO [address] [facility] [address] [place] [address] Social History Tobacco Use Types Packs/Day Years [...] DERMPATH SLIDE CONSULT Routine 09/11/2018 12:00 AM [facility] documented in this encounter Results * DERMPATH SLIDE CONSULT (09/11/2018 12:00 AM [facility]) Case Report Dermatopathology Report Case: [id number] Authorizing Provider: Swetha Newton DO Collected: 09/11/2018 12:00 AM Pathologist: Latha Live MD Received: 09/11/2018 09:55 AM Specimen: Slide(s), Right arm, [id number]# [id number] 8 4:54 PM [facility] DERMATOPATHOLOGY LABORATORY Final Diagnosis Specimen A. 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 Swetha Newton, a consult will be performed on 5 slide(s) labeled [id number]. Compound melanocytic proliferation; present at margin. All slides returned. Any additional sections, special stains or immunohistochemical stains performed by our laboratory will be kept here on file. 4:54 PM [facility] DERMATOPATHOLOGY LABORATORY Microscopic Description Specimen A. Slide(s), Right arm, OSC# [id number]: This is a compound nevus. There is [...] agrees with the diagnosis. 8 4:54 PM [facility] DERMATOPATHOLOGY LABORATORY Disclaimer An external and internal positive and negative controls are appropriate for the histochemical, immunohistochemical and immunofluorescence stain(s) in this case (if any), except where stated explicitly. The performance characteristics of the stain(s) cited in this report were developed and its performance characteristic determined by the Dermatopathology Laboratory at [facility]. These tests need not be, and therefore are not, approved by the [place] Food and Drug Administration. The tests are used for clinical purposes. Billing Codes Specimen Charges Stain Charges 57507 1 26142 71923 50699 1 1 1 8 4:54 PM [facility] DERMATOPATHOLOGY LABORATORY Embedded Images 8 4:54 PM [facility] DERMATOPATHOLOGY LABORATORY Pathology/Cytolog y SLIDE / Unknown 09/11/2018 09/11/2018 9:55 AM [facility] Swethamiguelito Elam Aman DO LAB - PATHOLOGY/C YTOLOGY ORDERABLES DERMATOPATHOLOGY LABORATORY [facility] - Department of Dermatology [address] [place] [address], 5th Floor Lab [address] [phone] documented in this encounter Visit Diagnoses Not on filedocumented in this encounter Care Teams Pharmacy Laboratory Technician Relationship Specialty Start Date End Date Cuba Almaguer MD [address] [address] PCP - General 12/14/22 documented as of this encounter
--- OUTSIDE RECORDS SUMMARY | 2024-12-02 01:02 | XMS_ITS | Encounter Summary ---
Author Organization [facility] Address [address] [facility] [place] [address] Care Team Providers Care Mason Tender Name Role Phone Cuba Almaguer MD Primary Care Provider + Encounter Details Date Type Department Care Team (Late st Contact Info) Description 11/14/2018 Lab Requisition [facility] [address] [facility], [place] [phone] Mariela Oconnor MD [address] [facility] 3 [place] [address] Social History Tobacco Use Types Packs/Day Years [...] DERMATOPATH TECHNICAL REPORT Routine 11/13/2018 12:00 AM SAW REPAIRER documented in this encounter Results * DERMATOPATH TECHNICAL REPORT (11/13/2018 12:00 AM SAW REPAIRER) Case Report Dermatopathology Report Case: [id number] Authorizing Provider: Mariela Oconnor MD Collected: 11/13/2018 12:00 AM Pathologist: Latha Live MD Received: 11/14/2018 07:15 AM Specimen: Skin, right arm 9 1:19 PM SAW REPAIRER DERMATOPATHOLOGY LABORATORY Clinical History Biopsy proven melanocytic proliferation. Check margins. See [id number] 9 1:19 PM SAW REPAIRER DERMATOPATHOLOGY LABORATORY Gross Description Specimen A: Received is one formalin filled container labeled with the patient's name and designated right arm.The specimen consists of an ellipse measuring 98c20b0 mm and is oriented with the suture/notch [...] and submitted in cassettes 3-4. Jar 0. [facility] Dermatopathology Laboratory performed the technical component only. 1:19 PM [facility] DERMATOPATHOLOGY LABORATORY Embedded Images 1:19 PM [facility] DERMATOPATHOLOGY LABORATORY DISCLAIMER An external and internal positive and negative controls are appropriate for the histochemical, immunohistochemical and immunofluorescence stain(s) in this case (if any), except where stated explicitly. The performance characteristics of the stain(s) cited in this report were developed and its performance characteristic determined by the Dermatopathology Laboratory at [facility], directed by Dr. Maycol Allred. These tests need not be, and therefore are not, approved by the [place] Food and Drug Administration. The tests are used for clinical purposes. 1:19 PM [facility] DERMATOPATHOLOGY LABORATORY Pathology/Cytolog y TISSUE SPECIMEN FROM SKIN / Unknown 11/13/2018 11/14/2018 7:15 AM SAW REPAIRER Mariela Oconnor MD LAB - PATHOLOGY/CYTO LOGY ORDERABLES DERMATOPATHOLOGY LABORATORY [facility] - Department of Dermatology [address] [place] [address], 5th Floor Lab B [place], [place] [phone] [place] [address] documented in this encounter Visit Diagnoses Not on filedocumented in this encounter Care Teams Mason Tender Relationship Specialty Start Date End Date Cuba Almaguer MD [address] [address] PCP - General 12/14/22 documented as of this encounter
--- OUTSIDE RECORDS SUMMARY | 2024-12-02 01:02 | XMS_ITS | Encounter Summary ---
Author Organization [facility] Address [address] [facility] [place] [address] Care Team Providers Care Air Drier Name Role Phone Cuba Almaguer MD Primary Care Provider + Encounter Details Date Type Department Care Team (Late st Contact Info) Description 02/05/2020 Lab Requisition [facility] DermPath Lab [address] [facility], [place] [address] Mariela Oconnor MD [address] [facility] 3 [place] [address] Social History Tobacco Use Types Packs/Day Years [...] AM CDT) Case Report Dermatopathology Report Case: [id number] Authorizing Provider: Mariela Oconnor MD Collected: 02/04/2020 12:00 AM Ordering Location: [facility] DermPath Lab Received: 02/05/2020 06:47 AM Pathologist: Tyson Allred MD Specimen: Skin, left back 0 1:50 PM CDT DERMATOPATHOLOGY LABORATORY Clinical History Bx proven BCC. Check margins. Previous Bx: [id number]. 0 1:50 PM CDT DERMATOPATHOLOGY LABORATORY Gross Description Specimen A: Received is one formalin filled container labeled with the patient's name and designated left back.The specimen consists of an ellipse measuring 35b11m3xh and is oriented with the notch at [...] and submitted in cassettes 3-5. Jar 0. [facility] Dermatopathology Laboratory performed the technical component only. [...] characteristic determined by the Dermatopathology Laboratory at [facility], directed by Dr. Maycol Allred. These [...] DERMATOPATHOLOGY LABORATORY [facility] - Department of Dermatology [facility] [facility], 5th [place] [address], [facility] [phone] documented in this encounter Visit Diagnoses Not on filedocumented in this encounter Care Teams Air Drier Relationship Specialty Start Date End Date Cuba Almaguer MD [address] [address] PCP - General 3/10/23 documented as of this encounter
--- OUTSIDE RECORDS SUMMARY | 2024-12-02 01:02 | XMS_ITS | Encounter Summary ---
Author Organization [facility] Address [address] [facility] [place] [address] Care Team Providers Care Master Pilot Name Role Phone Cuba Almaguer MD Primary Care Provider + Encounter Details Date Type Department Care Team (Late st Contact Info) Description 11/20/2019 Lab Requisition [facility] DermPath Lab [address] [facility], [place] [address] Mairela Oconnor MD [address] [facility] 3 [place] [address] Social History Tobacco Use Types Packs/Day Years [...] Comments DERMATOPATHOLOGY Routine 11/19/2019 12:0 0 AM INSIDE BARREL LATHE OPERATOR documented in this encounter Results * DERMATOPATHOLOGY (11/19/2019 12:00 AM INSIDE BARREL LATHE OPERATOR) Case Report Dermatopathology Report Case: [id number] Authorizing Provider: Mariela Oconnor MD Collected: 11/19/2019 12:00 AM Ordering Location: [facility] DermPath Lab Received: 11/20/2019 07:02 AM Pathologist: Wendi Kim MD Specimen: Skin, left back 0 1:41 PM INSIDE BARREL LATHE OPERATOR DERMATOPATHOLOGY LABORATORY Final Diagnosis Specimen A. SKIN, left back: BASAL CELL CARCINOMA, SUPERFICIAL MULTIFOCAL (C44.519) 0 1:41 PM INSIDE BARREL LATHE OPERATOR DERMATOPATHOLOGY LABORATORY Clinical History BCC, bleeding. Schulenburg plaque. 0 1:41 PM INSIDE BARREL LATHE OPERATOR DERMATOPATHOLOGY LABORATORY Gross Description Specimen A: Received is one formalin filled container labeled with the patient's name and designated left back. The specimen consists of a shave measuring 6b1x1ra. Jar 0. 0 1:41 PM INSIDE BARREL LATHE OPERATOR DERMATOPATHOLOGY LABORATORY Microscopic Description Specimen A. SKIN, left back: Attached to the undersurface of the epidermis, there are small aggregates of basaloid cells with a high nuclear to cytoplasmic ratio and peripheral palisading. 0 1:41 PM INSIDE BARREL LATHE OPERATOR DERMATOPATHOLOGY LABORATORY Disclaimer An external and internal positive and negative controls are appropriate for the histochemical, immunohistochemical and immunofluorescence stain(s) in this case (if any), except where stated explicitly. The performance characteristics of the stain(s) cited in this report were developed and its performance characteristic determined by the Dermatopathology Laboratory at [facility], directed by Dr. Maycol Allred. These tests need not be, and therefore are not, approved by the [place] Food and Drug Administration. The tests are used for clinical purposes. Billing Codes Specimen Charges Stain Charges 92923 1 0 1:41 PM INSIDE BARREL LATHE OPERATOR DERMATOPATHOLOGY LABORATORY Embedded Images 0 1:41 PM INSIDE BARREL LATHE OPERATOR DERMATOPATHOLOGY LABORATORY Pathology/Cytolog y TISSUE SPECIMEN FROM SKIN / Unknown 11/19/2019 11/20/2019 7:02 AM INSIDE BARREL LATHE OPERATOR Mariela Oconnor MD LAB - PATHOLOGY/CYTO LOGY ORDERABLES DERMATOPATHOLOGY LABORATORY [facility] - Department of Dermatology [address] [place] [address], 5th Floor Lab [place] [address] [place] [address] documented in this encounter Visit Diagnoses Not on filedocumented in this encounter Care Teams Master Pilot Relationship Specialty Start Date End Date Cuba Almaguer MD [address] [place] [address] PCP - General 12/14/22 documented as of this encounter
--- OUTSIDE RECORDS SUMMARY | 2024-12-02 01:02 | XMS_ITS | Patient Health Summary ---
Author Organization [facility] Address [address] [facility] [place] [address] Care Team Providers Care Sports Physician Name Role Phone Cuba Almaguer MD Primary Care Provider + Note from [facility],non-owned Affiliates and Associated Physician Practices is amultiple site organization consisting of ambulatory clinics and hospital sitesin [place], [place], [place] and [place]. This disclosure is being madepursuant to the Care Everywhere program and may not contain all information available regarding this patient. Last updated 18.[facility] Social History Tobacco Use Types Packs/Day Years [...] 09/03/2018) Results * DERMATOPATHOLOGY (11/27/2023 10:14 AM AUDITOR/QUALITY) Only the most recent of5 resultswithin the time period is included. Case Report Dermatopathology Report Case: [id number] Authorizing Provider: Mounika Villagomez MD Collected: 11/27/2023 10:14 AM Ordering Location: [facility] DermPath Lab Received: 11/28/2023 08:06 AM Pathologist: Kinza Farah MD Specimen: Skin, superior to right brow 9:10 AM [facility] DERMATOPATHOLOGY LABORATORY Final Diagnosis Specimen A. SKIN, superior to right brow: BASAL CELL CARCINOMA, INFILTRATIVE PATTERN, WITH KERATINIZATION (C44.319) (see microscopic description and comment) 9:10 AM [facility] DERMATOPATHOLOGY LABORATORY Clinical History R/O BCC Growing, Non-Healing 9:10 AM [facility] DERMATOPATHOLOGY LABORATORY Gross Description Specimen A: Received is one formalin filled container labeled with the patient's name and designated superior to right brow. The specimen consists of a shave biopsy measuring 9x9x2 mm. Jar 0. 9:10 AM [facility] DERMATOPATHOLOGY LABORATORY Microscopic Description [...] who concurs with the diagnosis. 9:10 AM [facility] DERMATOPATHOLOGY LABORATORY Disclaimer An external and internal positive and negative controls are appropriate for the histochemical, immunohistochemical and immunofluorescence stain(s) in this case (if any), except where stated explicitly. The performance characteristics of the stain(s) cited in this report were developed and its performance characteristic determined by the Dermatopathology Laboratory at [facility], directed by Dr. Maycol Allred. These tests need not be, and therefore are not, approved by the [place] Food and Drug Administration. The tests are used for clinical purposes. Billing Codes Specimen Charges Stain Charges 62608 1 18906 1 9:10 AM [facility] DERMATOPATHOLOGY LABORATORY Embedded Images 9:10 AM [facility] DERMATOPATHOLOGY LABORATORY Pathology/Cytolo gy TISSUE SPECIMEN FROM SKIN / Unknown 11/27/2023 10:14 AM AUDITOR/QUALITY 11/28/2023 8:06 AM AUDITOR/QUALITY Mounika Villagomez MD LAB - PATHOLOGY/CYT OLOGY ORDERABLES DERMATOPATHOLOGY LABORATORY [facility] Department of Dermatology [facility] [address] [facility], 3rd Floor [address] [phone] * DERMATOPATH TECHNICAL REPORT (02/04/2020 12:00 AM CDT) Only the most recent of3 resultswithin the time period is included. Case Report Dermatopathology Report Case: [id number] Authorizing Provider: Mariela Oconnor MD Collected: 02/04/2020 12:00 AM Ordering Location: [facility] DermPath Lab Received: 02/05/2020 06:47 AM Pathologist: Tyson Allred MD Specimen: Skin, left back 0 1:50 PM CDT DERMATOPATHOLOGY LABORATORY Clinical History Bx proven BCC. Check margins. Previous Bx: [id number]. 0 1:50 PM CDT DERMATOPATHOLOGY LABORATORY Gross Description Specimen A: Received is one formalin filled container labeled with the patient's name and designated left back.The specimen consists of an ellipse measuring 94i37u1ma and is oriented with the notch at [...] and submitted in cassettes 3-5. Jar 0. [facility] Dermatopathology Laboratory performed the technical component [...] characteristic determined by the Dermatopathology Laboratory at [facility], directed by Dr. Maycol Allred. These tests need not be, and therefore are not, approved by the [place] Food and Drug Administration. The tests are used for clinical purposes. 0 1:50 PM CDT DERMATOPATHOLOGY LABORATORY Pathology/Cytolog y TISSUE SPECIMEN FROM SKIN / Unknown 02/04/2020 02/05/2020 6:47 AM CDT Mariela Oconnor MD LAB - PATHOLOGY/CYTO LOGY ORDERABLES DERMATOPATHOLOGY LABORATORY [facility] - Department of Dermatology [address] [place] [address], 5th Floor Lab B [address] [phone] * DERMPATH SLIDE CONSULT (09/11/2018 12:00 AM [facility]) Case Report Dermatopathology Report Case: [id number] Authorizing Provider: Swetha Newton DO Collected: 09/11/2018 12:00 AM Pathologist: Latha Live MD Received: 09/11/2018 09:55 AM Specimen: Slide(s), Right arm, OSC# [id number] 8 4:54 PM AUDITOR/QUALITY DERMATOPATHOLOGY LABORATORY Final Diagnosis Specimen A. 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 Swetha Newton, a consult will be performed on 5 slide(s) labeled [id number]. Compound melanocytic proliferation; present at margin. All slides returned. Any additional sections, special stains or immunohistochemical stains performed by our laboratory will be kept here on file. 8 4:54 PM [facility] DERMATOPATHOLOGY LABORATORY Microscopic Description Specimen A. Slide(s), Right arm, OSC# [id number]: This is a compound nevus. There is [...] with the diagnosis. 8 4:54 PM [facility] DERMATOPATHOLOGY LABORATORY Disclaimer An external and internal positive and negative controls are appropriate for the histochemical, immunohistochemical and immunofluorescence stain(s) in this case (if any), except where stated explicitly. The performance characteristics of the stain(s) cited in this report were developed and its performance characteristic determined by the Dermatopathology Laboratory at [facility]. These tests need not be, and therefore are not, approved by the [place] Food and Drug Administration. The tests are used for clinical purposes. Billing Codes Specimen Charges Stain Charges 77044 1 97529 43241 19971 1 1 1 8 4:54 PM AUDITOR/QUALITY DERMATOPATHOLOGY LABORATORY Embedded Images 8 4:54 PM [facility] DERMATOPATHOLOGY LABORATORY Pathology/Cytolog y SLIDE / Unknown 09/11/2018 09/11/2018 9:55 AM AUDITOR/QUALITY Swetha Newton DO LAB - PATHOLOGY/C YTOLOGY ORDERABLES DERMATOPATHOLOGY LABORATORY [facility] - Department of Dermatology [address] [place] [address], 5th [place] [address], [facility] [phone] Care Teams Sports Physician Relationship Specialty Start Date End Date Cuba Almaguer MD [address] [address] PCP - General 12/14/22
--- OUTSIDE RECORDS SUMMARY | 2024-12-02 01:02 | XMS_ITS | Encounter Summary ---
Author Organization [facility] Address [address] [facility] [place] [address] Care Team Providers Care Logistics Assistant Name Role Phone Cuba Almaguer MD Primary Care Provider + Encounter Details Date Type Department Care Team (Late st Contact Info) Description 09/04/2018 Lab Requisition [facility] Care DermPath Lab [address] [facility], [place] [address] Mariela Oconnor MD [address] [facility] 3 [place] [address] Social History Tobacco Use Types Packs/Day Years [...] DERMATOPATH TECHNICAL REPORT Routine 09/03/2018 12:00 AM NUB CARD TENDER documented in this encounter Results * DERMATOPATH TECHNICAL REPORT (09/03/2018 12:00 AM NUB CARD TENDER) Case Report Dermatopathology Report Case: [id number] Authorizing Provider: Mariela Oconnor MD Collected: 09/03/2018 12:00 AM Pathologist: Tyson Allred MD Received: 09/04/2018 06:28 AM Specimen: Skin, right arm 8 4:40 PM NUB CARD TENDER DERMATOPATHOLOGY LABORATORY Addendum 1 At the request of the diagnosing physician, the technical component for MART-1/Melan A and HMB-45 was performed by [facility] Dermatopathology Laboratory. 4:40 PM NUB CARD TENDER DERMATOPATHOLOGY LABORATORY Addendum electronically signed by Tyson Allred MD on 09/09/2018 at 4:40 PM Clinical History Nevus, melanoma, nevus, irregular border, irregular color 4:40 PM [facility] DERMATOPATHOLOGY LABORATORY Gross Description Specimen A: Received is one formalin filled container labeled with the patient's name and designated right arm. The specimen consists of a shave biopsy measuring 11x8x2 mm. Jar 0. [facility] Dermatopathology Laboratory performed the technical component only. 4:40 PM [facility] DERMATOPATHOLOGY LABORATORY Embedded Images 4:40 PM [facility] DERMATOPATHOLOGY LABORATORY DISCLAIMER An external and internal positive and negative controls are appropriate for the histochemical, immunohistochemical and immunofluorescence stain(s) in this case (if any), except where stated explicitly. The performance characteristics of the stain(s) cited in this report were developed and its performance characteristic determined by the Dermatopathology Laboratory at [facility]. These tests need not be, and therefore are not, approved by the [place] Food and Drug Administration. The tests are used for clinical purposes. 4:40 PM [facility] DERMATOPATHOLOGY LABORATORY Pathology/Cytolog y TISSUE SPECIMEN FROM SKIN / Unknown 09/03/2018 09/04/2018 6:28 AM NUB CARD TENDER Mariela Oconnor MD LAB - PATHOLOGY/CYTO LOGY ORDERABLES DERMATOPATHOLOGY LABORATORY [facility] - Department of Dermatology [address] [place] [address] 5th Floor Lab [address] [phone] documented in this encounter Visit Diagnoses Not on filedocumented in this encounter Care Teams Logistics Assistant Relationship Specialty Start Date End Date Cuba Almaguer MD [address] [place] [address] PCP - General 12/14/22 documented as of this encounter
--- OUTSIDE RECORDS SUMMARY | 2024-12-02 01:02 | XMS_ITS | Data Portability ---
Author Organization [facility], Main Office Address [address] [place] [address] Care Team Providers Care Supervisor [employer] Name Role Phone COLLETTE STRONG Primary Care Provider COLLETTE STRONG Referring Provider Assessment Encounter Date Assessment Date Assessment LastModified [...] residual pain and brusing, so we recommended [id number] Tylenol, as he cannot take anti-inflammator ies, [...] pt for R knee. Thanks 2023 024 [facility] [place] [facility], [address], [place], [address], 18:03:19 Procedures None recorded. Surgeries None recorded. Imaging XR, knee, 3 view 2022 023 [facility] [place], [address], [place], [address], 23:05:12 Medication Orders None recorded. Patient TargetsNo [...] observ ation record ed. [email or web address] [facility] [place] [address], [place], [address], 09/04/2023 16:09:03 Result Notes None recorded. Problems Name Problem SNOMED Code Status Onset Date Resolution Date Notes Provider Name and Address Organization Details Recorded Time Osteoarthr itis of knee 873525660 Active Not Available [facility] 3 13:28:51 Osteoarthr itis 209019965 Active Not Available [facility] 3 13:28:51 Pain of right knee joint 9348834515401 00 Active 2022 NILSA Gonzales, [facility] 3 15:36:05 Problem Notes None recorded. Procedures Surgical History Date Name Laterality Status Provider Name and Address Organization Details Recorded Time Knee Replacement completed NILSA Arguello [facility] 09/04/2023 15:35:33 Imaging Results Imaging Date Name Status LastModified by Organiz ation Details LastModified Time 09/04/2023 XR, knee, 3 view [facility] [place] [address], [place], [address], 09/04/2023 16:09:03 Procedure Notes None recorded. Medical [...] DateTime 09/04/2023 182.88 cm 6 29.2 kg/m2 30975.36 g Joanne Paige Matthew [facility] [employer] 09/04/2023 15:37:41 Date Recorded Body height Body mass index (BMI) Body weight Pain severity - 0-10 verbal numeric rating [Score] - Reported Provider Name and Address Organization Details Last Updated DateTime 10/16/2023 182.88 cm 29.2 kg/m2 88470.36 g 3 Joanne Paige [facility] [employer] 10/16/2023 15:23:36 Social History Question Answer Notes LastModified by Organizat ion Details LastModified Time Tobacco Smoking Status Unknown If Ever Smoked Carolina Kennedylanette johnson [facility] [employer] 10/16/2023 15:22:32 What Is Your Level Of Alcohol Consumption? Occasional [email or web address] Information not available 09/04/2023 What Was The Date Of Your Most Recent Tobacco Screening? 09/04/2023 [email or web address] Information not available 10/16/2023 Sex: Unknown Functional Status None recorded. Mental Status None recorded. Family History Relationship Description Onset Age of this Age Resolved Age Notes LastModified by Organization Details LastModified Time Father Heart disease Not available 2022 15:34:30 Father Hypertensive disorder [email or web address] Not available 2022 15:34:41 Medical History No medical history recorded. Past Encounters Encounter ID Performer Location Encounter Start Date Encounter Closed Date Diagnosis/Indication Diagnosis SNOMED-CT Code Diagnosis ICD10 Code Diagnosis Note [id number] Nafisa Brian NP [facility] [place] [address] [place] [address] 09/04/2023 15:11:13 09/04/2023 16:06:53 Pain of right knee joint 6131737071 10900 M25.552 [id number] Nafisa Brian, [employer] [facility] [place] [address] [place] [address] 10/16/2023 15:20:34 10/16/2023 16:34:10 Pain of right knee joint 3077674792 11528 M25.561 Health Concerns Section Related Observation LastModified by Organization Detai ls LastModified Time None Recorded Concern Status LastModified by Organization Details LastModified Time None Recorded Advance Directives Directive None Recorded Payers Encounter Date Sequence Insurance Name Policy Number Policy Valentino Covered Member ID Valentino Member ID Guarantor Name 09/04/2023 1 [facility] - [employer] - MEDICARE COMPLETE CHOICE PLAN 1 (MEDICARE REPLACEMENT PPO) [id number] Hemal Tracy Jr [id number] Hemal Tracy 10/16/[address] [facility] - AARP - SECURE [employer] - MEDICARE COMPLETE CHOICE PLAN 1 (MEDICARE REPLACEMENT PPO) [id number] Hemal Tracy Jr [id number] Hemal Tracy
--- OUTSIDE RECORDS SUMMARY | 2024-12-02 01:02 | XMS_ITS | Clinical Summary ---
Author Organization [facility] [address] [employer] Address [address] [place] [address] Care Team Providers Care Truck Loader Overhead Crane Name Role Phone Cuba Almaguer MD Primary [...] on file Legal Sex Male 12:16 AM HANDLE MAKER Gender Identity Not on file Sexual Orientation Not on file Obstetrics History Last Filed Vital Signs Vital Sign Reading Time Taken Comments Blood Pressure 164/64 08/22/2023 3:30 PM HANDLE MAKER Pulse 51 08/22/2023 3:30 PM HANDLE MAKER Temperature 36.7 C (98.1 F) 08/22/2023 12:09 PM HANDLE MAKER Respiratory Rate 17 08/22/2023 3:30 PM HANDLE MAKER Oxygen Saturation 99% 08/22/2023 3:30 PM HANDLE MAKER Inhaled Oxygen Concentration - - Weight 97.4 kg (214 lb 11.7 oz) 023 12:09 PM HANDLE MAKER Height 182.9 cm (6') 08/22/2023 12:09 PM HANDLE MAKER Body Mass Index 29.12 08/22/2023 12:09 PM HANDLE MAKER Plan of Treatment Health Maintenance Due Date [...] SOLUTIONS MEDICARE SOLUTIONS MEDICARE SOLUTIONS Care Teams Truck Loader Overhead Crane Relationship Specialty Start Date End Date Cuba Almaguer MD [address] [place] [address] PCP - General Family Medicine 12/29/20
--- OUTSIDE RECORDS SUMMARY | 2024-12-02 01:02 | XMS_ITS | Referral Summary ---
Author Organization [facility] [address] Address [address] [place] [address] Care Team Providers Care Donkey Ride Operator Name Role Phone Cuba Almaguer MD [...] on file Legal Sex Male 12:16 AM SADDLE CUTTER Gender Identity Not on file Sexual Orientation Not on file Last Filed Vital Signs Vital Sign Reading Time Taken Comments Blood Pressure 164/64 08/22/2023 3:30 PM SADDLE CUTTER Pulse 51 08/22/2023 3:30 PM SADDLE CUTTER Temperature 36.7 C (98.1 F) 08/22/2023 12:09 PM SADDLE CUTTER Respiratory Rate 17 08/22/2023 3:30 PM SADDLE CUTTER Oxygen Saturation 99% 08/22/2023 3:30 PM SADDLE CUTTER Inhaled Oxygen Concentration - - Weight 97.4 kg (214 lb 11.7 oz) 023 12:09 PM SADDLE CUTTER Height 182.9 cm (6') 08/22/2023 12:09 PM SADDLE CUTTER Body Mass Index 29.12 08/22/2023 12:09 PM SADDLE CUTTER Plan of Treatment Not on file Insurance MEDICARE SOLUTIONS [facility] MEDICARE Address: [place] [id number] [place] [id number] [facility] Address: [facility] [address] [place] [address] MEDICARE [facility] [facility] MED[facility] Address: [facility] [address] [place] [address] Care Teams Donkey Ride Operator Relationship Specialty Start Date End Date Cuba Almaguer MD [address] [place] [address] PCP - General Family Medicine 12/29/20
--- OUTSIDE RECORDS SUMMARY | 2024-12-02 01:02 | XMS_ITS | Referral Summary ---
Author Organization [facility] Address [address] [facility] [place] [address] Care Team Providers Care Machine Stitcher Name Role Phone Cuba Almaguer MD Primary Care Provider + Source Comments [facility],non-owned Affiliates and Associated Physician Practices is amultiple site organization consisting of ambulatory clinics and hospital sitesin [place], [place], [place] and [place]. This disclosure is being madepursuant to the Care Everywhere program and may not contain all information available regarding this patient. Last updated 18.[facility] Dishable Social History Tobacco Use Types Packs/Day Years Used Date Smoking Tobacco: Never Assessed Sex and Gender Information Value Date Recorded Sex Assigned at Not on file Gender Identity Not on file Sexual Orientation Not on file Plan of Treatment Not on file Care Teams Machine Stitcher Relationship Specialty Start Date End Date Cuba Almaguer MD [address] [address] PCP - General 12/14/22
--- OUTSIDE RECORDS SUMMARY | 2024-12-02 01:03 | XMS_ITS ---
Author Organization [facility] Address [address] [place] [address] Care Team Providers Care Cinema Or Theatre Manager Name Role Phone zzzzMigration, zzzzProvider Unavailable Unav ailable REASON FOR VISIT [facility] Encounters Encounter Location Date Provider Diagnosis [facility] [address] [place] [address] 07/27/2023 zzzzProvider zzzzMigration Plan Of Treatment No Information Progress Notes * Hemal JHA ADOB: [birth year] (74 yo M)Acc No.[id number]:07/27/2023 Patient: Hemal NEWBERRY :1950 A ge:72 Y S ex:Male Address:[address] [place] [address] Subjective: * Chief Complaints: * E MR-Tae * Medical History: * Surgical History: * Hospitalization/Major Diagno stic Procedure: * Medications: Objective: * Vitals: * Physical Examination: Assessment: Plan: * Treatment: * Procedure Codes: * * Date:
--- OUTSIDE RECORDS SUMMARY | 2024-12-02 01:03 | XMS_ITS | Patient Health Record ---
Author Organization [facility] Address [address] [address] [place] [address] Support Name Relationship Address Phone Hemal Tracy Guarantor Unknown [phone] Reason For Referral No Information Medications Medication SIG (Take, Route, Fr equency, Duration) Notes Start Date End Date Status Colchicine 0.6 MG 1 Every Day Oral 07/10/2010 Active Plan Of Treatment No Information Insurance Providers Payer Name Payer Address Payer Phone Subscriber Number Group Number Insured Name Patient Relationship to Insured Coverage Start Date Coverage End Date [employer] o [address] [place], [place] [address] [id number] Hemal Tracy Self - patient is the insured 1
--- OUTSIDE RECORDS SUMMARY | 2024-12-02 01:03 | XMS_ITS ---
Author Organization [facility] Address [address] [place] [address] Care Team Providers Care Retail Performance Specialist Name Role Phone zzzzMigration, zzzzProvider Unavailable Unav ailable REASON FOR VISIT EMR-[facility] Medications Medication SIG (Take, Route, Fr equency, Duration) Notes Start Date End Date Status Colchicine 0.6 MG 1 Every Day Oral 07/10/2010 Active Encounters Encounter Location Date Provider Diagnosis [facility] [address] [place] [address] 07/28/2023 zzzzProvider zzzzMigration Plan Of Treatment No Information Progress Notes * YUDELKA, Hemal ADOB: [birth year] (74 yo M)Acc No.[id number]:07/28/2023 Patient: Hemal NEWBERRY :1950 A ge:72 Y S ex:Male Address:[address] [place] [address] Subjective: * Chief Complaints: * E MR-Tae * Medical History: * Surgical History: * Hospitalization/Major Diagno stic Procedure: * Medications: T akingColchicine 0.6 MG Tablet 1 Every Day Oral Taking Colchicine 0.6 MG Tablet 1 Every Day Oral Objective: * Vitals: * Physical Examination: Assessment: Plan: * Treatment: * Procedure Codes: * * Date:
--- OUTSIDE RECORDS SUMMARY | 2024-12-02 01:03 | XMS_ITS | Continuity of Care Document ---
Author Name [facility] Organization [facility] Care Team Providers Care Chief Human Resources Officer Name Role Phone [facility] Unavailable Unavailable Problems Combined list of problems from [facility] and [facility] facilities. It does not include entries that were removed or entered in error. Problem Status Onset Date Problem Type Date of Resolution Comments Source Benign essential hypertension (SNOMED CT 4264033) Active Condition [facility] Hearing loss (SNOMED CT 25840839) Active Condition [facility] Knee pain (SNOMED CT 90495255) Active Condition [facility] Medications Combined list of outpatient medications from [facility] and [facility] facilities.Medications provided include 1) outpatient medications from the last 15 months, and 2) patient-reported medications. Medication Details Route Status Patient Instructions Prescription Expires Prescription Number Last Dispense Date Ordering Provider Order Date Order Qty Source LISINOPRIL 40MG TAB TAKE ONE-HALF TABLET BY MOUTH ONCE A DAY ORAL ACTIVE HA GOYAL 2013 [facility] Immunizations Combined list of available immunizations from the [facility] and [facility] facilities. Immunization Series Date Given Administered By Site Reaction Lot Number CVX Code Drug Sanitation Truck Cleaner Status Comments Source TDAP 2013 115 complet ed Left Deltoid [facility] Encounters Combined list of: 1) Encounters from [facility] facilities going backup to the last 18 months, not all [place] inpatient encounters are included; 2) Encounters from the [facility] facilities going backup to 280 months. Location Location Details Encounter Type Encounter Number Reason For Visit Attending Provider ADM Date DC Date Status Disposition Source [facility] Outpatient Encounter [id number] 09/15 [facility] Social History Combined list of available smoking, tobacco, and other social history from [facility] and [facility] facilities. Social History Type Response Date Comment Sourc e Tobacco smoking status NHIS LIFETIME NON-USER OF TOBACCO 11/18/2013 [facility]
--- NOTE | 2024-12-02 10:45 | WPDHPUPDATE1 ---
History and Physical Update Update Date/Time: 12/02/24 10:45 History and Physical has been reviewed, including an updated exam of the patient. There are NO changes in the patient's condition. Risks, benefits, and alternatives have been discussed and questions answered. Patient agrees to proceed with procedure.
[2024-12-02] MEDS: LACTATED RINGERS 1,000 ML 30 ML IV CONT ×2 (12:40→16:26)
[2024-12-02] MEDS: KETOROLAC 15 MG/ML VIAL (*BKC) IV PUSH (12:48)
[2024-12-02] MEDS: ACETAMINOPHEN 500 MG TABLET 1000 MG PO (12:48)
--- NOTE | 2024-12-02 13:45 | WPDANESEPPF ---
Anes - Initial Pre Proc Eval Procedure: Operation Date: 12/02/24 14:00 Proposed Procedures p Robotic Assisted Right Inguinal Hernia Repair with Mesh - Mahendra Sood MD Date/Time: 12/02/24 13:45 Surgeon: Mahendra Sood MD Pre Op Diagnosis: Right Inguinal Hernia Patient Data Age: 74 Gender: M Height: 1.83 m Weight: 99 kg Last Vital Signs Temp 36.3 C L 12/02/24 12:56 Pulse 46 L 12/02/24 12:56 Resp 16 12/02/24 12:56 BP 172/47 H 12/02/24 12:56 Pulse Ox 100 12/02/24 12:56 O2 Del Method Room Air 12/02/24 12:56 Allergies Allergy/AdvReac Type Severity Reaction Status Date / Time No Known Allergies Allergy Verified 12/02/24 12:29 Home Medications ?Medication ?Instructions ?Recorded ?Confirmed ?Type fluticasone 250 mcg-salmeterol 50 1 inh inhalation BID #60 ea 10/03/22 12/02/24 Rx mcg/dose blistr powdr for inhalation (Wixela Inhub) amlodipine 5 mg-benazepril 40 mg See Rx Instructions .Route 10/15/23 12/02/24 Rx capsule .COMPLEX #90 caps metoprolol succinate 100 mg See Rx Instructions .Route 02/05/24 12/02/24 Rx tablet,extended release 24 hr .COMPLEX #90 tabs minoxidil 10 mg tablet 5 mg (1/2 x 10 mg) PO DAILY #90 04/05/24 12/02/24 Rx tabs allopurinol 300 mg tablet See Rx Instructions .Route 09/10/24 12/02/24 Rx .COMPLEX #90 tabs Patient hx anesthesia problems: none Family hx anesthesia problems: none Results Review: All pre-operative results and documents have been reviewed as part of the pre-operative evaluation. [facility] Past Medical History Medical History Hypertension Diverticula of colon Hx of adenomatous colonic polyps Suprapubic abdominal pain Hx of tear of meniscus of knee joint Personal history of colonic polyps History of pulmonary embolism 04/26 Normal colonoscopy 11/18 Accelerated junctional rhythm Aortic regurgitation COVID 04/26 Surgical History Surgical History H/O sinus surgery History of total left knee replacement 2016 Family History Family History Father Hypertension Gout Acute myocardial infarction Social History Social History Social History: The patient lives at home with his and she is a durable power district attorney for healthcare. The patient is a full code. The patient is retired. He has a son and a daughter. The patient is retired from [employer]. Smoking status: Never smoker Second hand tobacco smoke exposure: No Alcohol intake: current Drinks per week: 1 Alcohol use details: 3 per month Substance use: never Substance use type: does not use Do You Feel Safe in your Home?: Yes Lack of Transportation: No Lack of Food: Never True Current Housing: I Have Housing Concerned About Future Housing: No Difficulty Paying Gas/Electric Bills: No Difficulty Paying for Meds: No Currently Unemployed: No Education: Bachelor's Degree Difficulty w/ Childcare or Family Care: No Living arrangements: with family Additional living arrangements comments: Occupation/Education: retired Gender identity (if verbalized by the patient): Male Sexual Orientation (if Verbalized by the Patient): Straight or Heterosexual Spiritual care concerns: No Agree to blood products: Yes Anes - Eval Final PreProcedure Day of Procedure 12/02/24 13:45 Patient weight: overweight Heart: regular rate and rhythm Lungs: clear to auscultation Airway: Mallampati scale class III Neurological: alert and oriented Last oral intake: >/= 8 hours ASA classification: III Emergent: no Anesthetic plan: proceed Anesthesia type and monitoring: general ETT and standard monitoring Results Review: All pre-operative results and documents have been reviewed as part of the pre-operative evaluation. Informed Consent: The patient's anesthetic plan and its attendant risks and benefits were discussed with the patient/family/POA. Questions were solicited and answers provided to the satisfaction of the patient/family/POA.
[2024-12-02] MEDS: ceFAZolin 2 GM/D5W 50 ML 2 GM/50 ML BAG IVPB (14:07)
[2024-12-02] MEDS: BUPIVACAINE/EPINEPHRINE 0.5% 50 ML VIAL 30 ML INFILTRATE (14:33)
--- NOTE | 2024-12-02 15:31 | P.OP_ITS ---
Procedure Note - Detailed Date of Procedure 12/02/24 Pre-op Diagnosis Right Inguinal Hernia Post-op Diagnosis Same Procedure Performed Robotic laparoscopic repair right inguinal hernia with mesh Surgeon Mahendra Sood MD Field Mechanical Meter Tester Leydi ELDER Anesthesia General and Local Indications Patient has noticed a bulge in the right groin. It has been getting bigger and is occasionally painful. He was seen in the office and found to have a reducible right inguinal hernia. He is taken to surgery now for robotic laparoscopic repair with mesh Findings Patient had a large indirect right inguinal hernia Description of Procedure Patient was taken to surgery and induced into general anesthesia. The abdomen is prepped draped. Trocars were placed in usual fashion using initially a 5 mm applied Medical optical trocar in the left subcostal position to gain access to the peritoneal cavity. The robotic trocars were placed under direct visualization and then the 5 mm optical trocar was traded out for an 8 mm robotic trocar. Patient was placed in Trendelenburg. The robotic arms were brought into the field and the camera was docked. Camera was targeted. The operating arms were docked and the instruments positioned appropriately. Surgeon then went to the robotic console. A peritoneal flap over the anterior aspect of the inguinal canal structures was created. The flap was developed broadly dissecting from anterior to posterior. Medially, dissection was carried down to Parviz's ligament. Dissection was carried to the pubis and actually passed midline a couple of cm on both the pubis and the left rectus abdominis muscle. Dissection was also carried posterior to Parviz's ligament about 2 cm. The lateral aspect the dissection was carried posteriorly as well. Traction was then placed on the hernia sac. The transversalis fibers were slowly divided in the anterior location. The sac was gradually reduced. The spermatic cord and cord vessels were carefully dissected and from the hernia sac. The sac was large but eventually we dissected to the into the sac. Cautery was used for nearly all the dissection. The sac was then further entirely from the cord vessels and vas deferens. The peritoneum was then dissected posteriorly least 4 cm posterior to the internal ring. A right mid extra-large 3DMax mesh was then introduced into the abdomen. It was positioned appropriately. Suture were introduced. A 3-0 Vicryl was used to suture the mesh to Parviz's ligament medially. To anterior 3-0 Vicryl sutures were also placed, 1 on each side of the inferior epigastric vessels. The mesh looked to be in good position. The posterior edges were positioned so that the bladder and peritoneum would lay those edges flat rather than potentially coming up under the mesh edges. The peritoneal opening was then closed with running 3 0 V lock suture. All looked good. The instruments were removed and the robot was undocked. CO2 was evacuated from the abdominal cavity. The trocars were then removed. Skin wounds were closed with subcuticular 4-0 Monocryl skin suture. The wounds were dressed with Exofin surgical adhesive. Patient was awakened and taken to recovery in good condition. Sponge and needle counts were correct x2. Implants 17 x 12 cm extra-large 3DMax mid right sided mesh Estimated Blood Loss -5 Drains No Packing No Pathology None sent Complications None Condition Stable Disposition PACU [facility] Billing Surgery - Charge Forward: Surgery Billing (Robotic laparoscopic repair right inguinal hernia with mesh)
== END 2024-12-02 17:51 | disposition home or self-care (01) ==
PROVIDERS: PCP Family Medicine Adolescent Medicine; Visit Provider Surgery
PROC: 8E0Y4CZ Robotic Assisted Procedure of Lower Extremity, Percutaneous Endoscopic Approach (ICD-10-PCS; CPT 49650; principal; 2024-12-02 14:00)
DX: K40.90 Unilateral inguinal hernia, without obstruction or gangrene, not specified as recurrent (principal); G89.18 Other acute postprocedural pain; I10 Essential (primary) hypertension; Z79.51 Long term (current) use of inhaled steroids; Z79.1 Long term (current) use of non-steroidal anti-inflammatories (NSAID); Z79.891 Long term (current) use of opiate analgesic; Z98.890 Other specified postprocedural states; Z87.19 Personal history of other diseases of the digestive system; Z86.0100 Personal history of colon polyps, unspecified; Z86.711 Personal history of pulmonary embolism; Z82.49 Family history of ischemic heart disease and other diseases of the circulatory system
CPT/HCPCS: 49650; S2900; A9270; C1781; J0690; J1885; J3010; J7120

== ENCOUNTER 2024-12-19 12:04 | Emergency (ER) | payer MEDICARE, SELFPAY ==
--- NOTE | ~2024-12-19 | XR_ITS ---
Clinical Indication: Cough PA and lateral views of the chest: Comparison: 04/23/2021 Findings: The lungs are clear, without evidence of focal consolidation or pleural effusion. Cardiome diastinal silhouette is stable. Bones and soft tissues are unremarkable. Impression: Clear lungs. Reviewed, dictated and finalized at location . Impression: Clear lungs.
--- OUTSIDE RECORDS SUMMARY | 2024-12-19 12:06 | XMS_ITS | Encounter Summary ---
Author Organization [facility] Address [address] [place] [address] Care Team Providers Care Community Manager Name Role Phone Cuba Almaguer MD Primary Care Provider + Encounter Details Date Type Department Care Team (Late st Contact Info) Description 11/20/2019 Lab Requisition [facility] [address] [facility] [place] [phone] Mariela Oconnor MD [address] [facility] [address] [place] [address] Social History Tobacco Use Types Packs/Day Years [...] Comments DERMATOPATHOLOGY Routine 11/19/2019 12:0 0 AM LOG BUYER documented in this encounter Results * DERMATOPATHOLOGY (11/19/2019 12:00 AM LOG BUYER) Case Report Dermatopathology Report Case: [id number] Authorizing Provider: Mariela Oconnor MD Collected: 11/19/2019 12:00 AM Ordering Location: [facility] Received: 11/20/2019 07:02 AM Pathologist: Wendi Kim MD Specimen: Skin, left back 0 1:41 PM LOG BUYER DERMATOPATHOLOGY LABORATORY Final Diagnosis Specimen A. SKIN, left back: BASAL CELL CARCINOMA, SUPERFICIAL MULTIFOCAL (C44.519) 0 1:41 PM LOG BUYER DERMATOPATHOLOGY LABORATORY Clinical History BCC, bleeding. [place] plaque. 0 1:41 PM LOG BUYER DERMATOPATHOLOGY LABORATORY Gross Description Specimen A: Received is one formalin filled container labeled with the patient's name and designated left back. The specimen consists of a shave measuring 1p4m8om. Jar 0. 0 1:41 PM LOG BUYER DERMATOPATHOLOGY LABORATORY Microscopic Description Specimen A. SKIN, left back: Attached to the undersurface of the epidermis, there are small aggregates of basaloid cells with a high nuclear to cytoplasmic ratio and peripheral palisading. 0 1:41 PM LOG BUYER DERMATOPATHOLOGY LABORATORY Disclaimer An external and internal positive and negative controls are appropriate for the histochemical, immunohistochemical and immunofluorescence stain(s) in this case (if any), except where stated explicitly. The performance characteristics of the stain(s) cited in this report were developed and its performance characteristic determined by the Dermatopathology Laboratory at [facility], directed by Dr. Maycol Allred. These tests need not be, and therefore are not, approved by the [place] Food and Drug Administration. The tests are used for clinical purposes. Billing Codes Specimen Charges Stain Charges 23410 1 0 1:41 PM LOG BUYER DERMATOPATHOLOGY LABORATORY Embedded Images 0 1:41 PM LOG BUYER DERMATOPATHOLOGY LABORATORY Pathology/Cytolog y TISSUE SPECIMEN FROM SKIN / Unknown 11/19/2019 11/20/2019 7:02 AM LOG BUYER Mariela Oconnor MD LAB - PATHOLOGY/CYTO LOGY ORDERABLES DERMATOPATHOLOGY LABORATORY [facility] - Department of Dermatology [address] [place] [address], 5th Floor Lab B [place], [place] [id number] [place] [address] documented in this encounter Visit Diagnoses Not on filedocumented in this encounter Care Teams Community Manager Relationship Specialty Start Date End Date Cuba Almaguer MD [address] [place] [address] PCP - General 12/14/22 documented as of this encounter
--- OUTSIDE RECORDS SUMMARY | 2024-12-19 12:06 | XMS_ITS | Patient Health Summary ---
Author Organization [facility] Address [address] [place] [address] Care Team Providers Care Outbound Telemarketer Name Role Phone Cuba Almaguer MD Primary Care Provider + Note from [facility],non-owned Affiliates and Associated Physician Practices is amultiple site organization consisting of ambulatory clinics and hospital sitesin [place], [place], [place] and [place]. This disclosure is being madepursuant to the Care Everywhere program and may not contain all information available regarding this patient. Last updated 18.[facility] Social History Tobacco Use Types Packs/Day Years [...] 09/03/2018) Results * DERMATOPATHOLOGY (11/27/2023 10:14 AM SITE SAFETY MANAGER) Only the most recent of5 resultswithin the time period is included. Case Report Dermatopathology Report Case: [id number] Authorizing Provider: Mounika Villagomez MD Collected: 11/27/2023 10:14 AM Ordering Location: [facility] DermPath Lab Received: 11/28/2023 08:06 AM Pathologist: Kinza Farah MD Specimen: Skin, superior to right brow 9:10 AM [facility] DERMATOPATHOLOGY LABORATORY Final Diagnosis Specimen A. SKIN, superior to right brow: BASAL CELL CARCINOMA, INFILTRATIVE PATTERN, WITH KERATINIZATION (C44.319) (see microscopic description and comment) 9:10 AM [facility] DERMATOPATHOLOGY LABORATORY Clinical History R/O BCC Growing, Non-Healing 9:10 AM [facility] DERMATOPATHOLOGY LABORATORY Gross Description Specimen A: Received is one formalin filled container labeled with the patient's name and designated superior to right brow. The specimen consists of a shave biopsy measuring 9x9x2 mm. Jar 0. 9:10 AM [facility] DERMATOPATHOLOGY LABORATORY Microscopic Description Specimen A. SKIN, superior to right brow: Sections show angulate aggregations of basaloid and squamous keratinocytes in the dermis, with fibrotic stroma. Some aggregations show central keratinization. BerEp4 is positive within the basaloid nests and focally positive within those with keratinization. COMMENT: This case has been reviewed by Dr. Janina Farah who concurs with the diagnosis. 9:10 AM [facility] DERMATOPATHOLOGY LABORATORY Disclaimer An external and internal positive and negative controls are appropriate for the histochemical, immunohistochemical and immunofluorescence stain(s) in this case (if any), except where stated explicitly. The performance characteristics of the stain(s) cited in this report were developed and its performance characteristic determined by the Dermatopathology Laboratory at [facility], directed by Dr. Maycol Allred. These tests need not be, and therefore are not, approved by the [place] Food and Drug Administration. The tests are used for clinical purposes. Billing Codes Specimen Charges Stain Charges 02588 1 21052 1 9:10 AM [facility] DERMATOPATHOLOGY LABORATORY Embedded Images 9:10 AM [facility] DERMATOPATHOLOGY LABORATORY Pathology/Cytolo gy TISSUE SPECIMEN FROM SKIN / Unknown 11/27/2023 10:14 AM SITE SAFETY MANAGER 11/28/2023 8:06 AM SITE SAFETY MANAGER Mounika Villagomez MD LAB - PATHOLOGY/CYT OLOGY ORDERABLES DERMATOPATHOLOGY LABORATORY [facility] Department of Dermatology [facility] [address], [address]rd [address] [phone] * DERMATOPATH TECHNICAL REPORT (02/04/2020 12:00 AM CDT) Only the most recent of3 resultswithin the time period is included. Case Report Dermatopathology Report Case: [id number] Authorizing Provider: Mariela Oconnor MD Collected: 02/04/2020 12:00 AM Ordering Location: [facility] DermPath Lab Received: 02/05/2020 06:47 AM Pathologist: Tyson Allred MD Specimen: Skin, left back 0 1:50 PM CDT DERMATOPATHOLOGY LABORATORY Clinical History Bx proven BCC. Check margins. Previous Bx: [id number]. 0 1:50 PM CDT DERMATOPATHOLOGY LABORATORY Gross Description Specimen A: Received is one formalin filled container labeled with the patient's name and designated left back.The specimen consists of an ellipse measuring 94l62e2sp and is oriented with the notch at [...] and submitted in cassettes 3-5. Jar 0. [facility] Dermatopathology Laboratory performed the technical component [...] characteristic determined by the Dermatopathology Laboratory at [facility], directed by Dr. Maycol Allred. These tests need not be, and therefore are not, approved by the [place] Food and Drug Administration. The tests are used for clinical purposes. 0 1:50 PM CDT DERMATOPATHOLOGY LABORATORY Pathology/Cytolog y TISSUE SPECIMEN FROM SKIN / Unknown 02/04/2020 02/05/2020 6:47 AM CDT Mariela Oconnor MD LAB - PATHOLOGY/CYTO LOGY ORDERABLES DERMATOPATHOLOGY LABORATORY [facility] - Department of Dermatology [address] [place] [address], 5th Floor Lab B [address] [phone] * DERMPATH SLIDE CONSULT (09/11/2018 12:00 AM [facility]) Case Report Dermatopathology Report Case: [id number] Authorizing Provider: Swetha Newton DO Collected: 09/11/2018 12:00 AM Pathologist: Latha Live MD Received: 09/11/2018 09:55 AM Specimen: Slide(s), Right arm, [id number]# [id number] 8 4:54 PM SITE SAFETY MANAGER DERMATOPATHOLOGY LABORATORY Final Diagnosis Specimen A. 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 Swetha Newton, a consult will be performed on 5 slide(s) labeled [id number]. Compound melanocytic proliferation; present at margin. All slides returned. Any additional sections, special stains or immunohistochemical stains performed by our laboratory will be kept here on file. 8 4:54 PM [facility] DERMATOPATHOLOGY LABORATORY Microscopic Description Specimen A. Slide(s), Right arm, OSC# [id number]: This is a compound nevus. There is [...] agrees with the diagnosis. 8 4:54 PM [facility] DERMATOPATHOLOGY LABORATORY Disclaimer An external and internal positive and negative controls are appropriate for the histochemical, immunohistochemical and immunofluorescence stain(s) in this case (if any), except where stated explicitly. The performance characteristics of the stain(s) cited in this report were developed and its performance characteristic determined by the Dermatopathology Laboratory at [facility]. These tests need not be, and therefore are not, approved by the [place] Food and Drug Administration. The tests are used for clinical purposes. Billing Codes Specimen Charges Stain Charges 50318 1 46551 78791 46414 1 1 1 8 4:54 PM SITE SAFETY MANAGER DERMATOPATHOLOGY LABORATORY Embedded Images 8 4:54 PM [facility] DERMATOPATHOLOGY LABORATORY Pathology/Cytolog y SLIDE / Unknown 09/11/2018 09/11/2018 9:55 AM SITE SAFETY MANAGER Swetha Newton DO LAB - PATHOLOGY/C YTOLOGY ORDERABLES DERMATOPATHOLOGY LABORATORY [facility] - Department of Dermatology [address] [place] [address], [address] [place] [address], [facility] [phone] Care Teams Outbound Telemarketer Relationship Specialty Start Date End Date Cuba Almaguer MD [address] [address] PCP - General 12/14/22
--- OUTSIDE RECORDS SUMMARY | 2024-12-19 12:06 | XMS_ITS | Encounter Summary ---
Author Organization [facility] Address [address] [place] [address] Care Team Providers Care Accounting Professor Name Role Phone Cuba Almaguer MD Primary Care Provider + Encounter Details Date Type Department Care Team (Late st Contact Info) Description 02/05/2020 Lab Requisition [facility] DermPath Lab [address] [facility], [place] [phone] Mariela Oconnor MD [address] [facility] 3 [place] [address] Social History Tobacco Use Types Packs/Day Years [...] AM CDT) Case Report Dermatopathology Report Case: [id number] Authorizing Provider: Mariela Oconnor MD Collected: 02/04/2020 12:00 AM Ordering Location: [facility] DermPath Lab Received: 02/05/2020 06:47 AM Pathologist: Tyson Allred MD Specimen: Skin, left back 0 1:50 PM CDT DERMATOPATHOLOGY LABORATORY Clinical History Bx proven BCC. Check margins. Previous Bx: [id number]. 0 1:50 PM CDT DERMATOPATHOLOGY LABORATORY Gross Description Specimen A: Received is one formalin filled container labeled with the patient's name and designated left back.The specimen consists of an ellipse measuring 82a08i4ps and is oriented with the notch at [...] and submitted in cassettes 3-5. Jar 0. [facility] Dermatopathology Laboratory performed the technical component [...] determined by the Dermatopathology Laboratory at [facility], directed by Dr. Maycol Allred. These [...] DERMATOPATHOLOGY LABORATORY [facility] - Department of Dermatology [facility] [facility], 5th [place] [address], [facility] [phone] documented in this encounter Visit Diagnoses Not on filedocumented in this encounter Care Teams Accounting Professor Relationship Specialty Start Date End Date Cuba Almaguer MD [address] [address] PCP - General 3/10/23 documented as of this encounter
--- OUTSIDE RECORDS SUMMARY | 2024-12-19 12:06 | XMS_ITS | Referral Summary ---
Author Organization [facility] Address [address] [facility] [place] [address] Care Team Providers Care Barge Engineer Name Role Phone Cuba Almaguer MD Primary Care Provider + Source Comments [facility],non-owned Affiliates and Associated Physician Practices is amultiple site organization consisting of ambulatory clinics and hospital sitesin [place], [place], [place] and [place]. This disclosure is being madepursuant to the Care Everywhere program and may not contain all information available regarding this patient. Last updated 18.[facility] Credible Social History Tobacco Use Types Packs/Day Years Used Date Smoking Tobacco: Never Assessed Sex and Gender Information Value Date Recorded Sex Assigned at Not on file Gender Identity Not on file Sexual Orientation Not on file Plan of Treatment Not on file Care Teams Barge Engineer Relationship Specialty Start Date End Date Cuba Almaguer MD [address] [address] PCP - General 12/14/22
--- OUTSIDE RECORDS SUMMARY | 2024-12-19 12:06 | XMS_ITS | Clinical Summary ---
Author Organization [facility] Address [address] [facility] [place] [address] Care Team Providers Care Crm Administrator Name Role Phone Cuba Almaguer MD Primary Care Provider + Source Comments [facility],non-owned Affiliates and Associated Physician Practices is amultiple site organization consisting of ambulatory clinics and hospital sitesin [place], [place], [place] and [place]. This disclosure is being madepursuant to the Care Everywhere program and may not contain all information available regarding this patient. Last updated 18.[facility] Social History Tobacco Use Types Packs/Day Years [...] to complete this topic MENINGOCOCCAL (Group B) VACC INE SHARED DECISION-MAKING Aged Out No longer eligibl e based on patient's age to complete this topic MENINGOCOCCAL GROUPS A/C/Y/W VACCINE Aged Out No longer eligible b ased on patient's age to complete this topic Care Teams Crm Administrator Relationship Specialty Start Date End Date Cuba Almaguer MD [address] [facility] [address] [place] [address] PCP - General 12/14/22
--- OUTSIDE RECORDS SUMMARY | 2024-12-19 12:06 | XMS_ITS | Encounter Summary ---
Author Organization [facility] Address [address] [facility] [place] [address] Care Team Providers Care Tissue Inserter Name Role Phone Cuba Almaguer MD Primary Care Provider + Encounter Details Date Type Department Care Team (Late st Contact Info) Description 11/27/2023 Lab Requisition [facility] - DermPath Lab [address] [facility], [place] [address] Mounika Villagomez MD [address] [facility] [address] [place] [address] Social History Tobacco Use Types Packs/Day Years [...] Comments DERMATOPATHOLOGY Routine 11/27/2023 10:1 4 AM DOOR OPENER documented in this encounter Results * DERMATOPATHOLOGY (11/27/2023 10:14 AM DOOR OPENER) Case Report Dermatopathology Report Case: [id number] Authorizing Provider: Mounika Villagomez MD Collected: 11/27/2023 10:14 AM Ordering Location: [facility] DermPath Lab Received: 11/28/2023 08:06 AM Pathologist: Kinza Farah MD Specimen: Skin, superior to right brow 9:10 AM DOOR OPENER DERMATOPATHOLOGY LABORATORY Final Diagnosis Specimen A. SKIN, superior to right brow: BASAL CELL CARCINOMA, INFILTRATIVE PATTERN, WITH KERATINIZATION (C44.319) (see microscopic description and comment) 9:10 AM DOOR OPENER DERMATOPATHOLOGY LABORATORY Clinical History R/O BCC Growing, Non-Healing 4 9:10 AM [facility] DERMATOPATHOLOGY LABORATORY Gross Description Specimen A: Received is one formalin filled container labeled with the patient's name and designated superior to right brow. The specimen consists of a shave biopsy measuring 9x9x2 mm. Jar 0. 4 9:10 AM [facility] DERMATOPATHOLOGY LABORATORY Microscopic Description [...] who concurs with the diagnosis. 9:10 AM [facility] DERMATOPATHOLOGY LABORATORY Disclaimer An external and internal positive and negative controls are appropriate for the histochemical, immunohistochemical and immunofluorescence stain(s) in this case (if any), except where stated explicitly. The performance characteristics of the stain(s) cited in this report were developed and its performance characteristic determined by the Dermatopathology Laboratory at [facility], directed by Dr. Maycol Allred. These tests need not be, and therefore are not, approved by the [place] Food and Drug Administration. The tests are used for clinical purposes. Billing Codes Specimen Charges Stain Charges 18391 1 67595 1 4 9:10 AM [facility] DERMATOPATHOLOGY LABORATORY Embedded Images 4 9:10 AM [facility] DERMATOPATHOLOGY LABORATORY Pathology/Cytolo gy TISSUE SPECIMEN FROM SKIN / Unknown 11/27/2023 10:14 AM DOOR OPENER 11/28/2023 8:06 AM [facility] Mounika Villagomez MD LAB - PATHOLOGY/CYT OLOGY ORDERABLES DERMATOPATHOLOGY LABORATORY [facility] - Department of Dermatology [address], [address] [phone] documented in this encounter Visit Diagnoses Not on filedocumented in this encounter Care Teams Tissue Inserter Relationship Specialty Start Date End Date Cuba Almaguer MD [address] [address] PCP - General 12/14/22 documented as of this encounter
--- OUTSIDE RECORDS SUMMARY | 2024-12-19 12:07 | XMS_ITS | Patient Health Record ---
Author Organization [facility] Address [address] [facility] [address] [place] [address] Support Name Relationship Address Phone Hemal Tracy Guarantor Unknown [phone] Reason For Referral No Information Medications Medication SIG (Take, Route, Fr equency, Duration) Notes Start Date End Date Status Colchicine 0.6 MG 1 Every Day Oral 07/10/2010 Active Plan Of Treatment No Information Insurance Providers Payer Name Payer Address Payer Phone Subscriber Number Group Number Insured Name Patient Relationship to Insured Coverage Start Date Coverage End Date [employer] o [address] [place], [place] [address] [id number] Hemal Tracy Self - patient is the insured 1
--- OUTSIDE RECORDS SUMMARY | 2024-12-19 12:07 | XMS_ITS | Referral Summary ---
Author Organization [facility] [address] Address [address] [place] [address] Care Team Providers Care Extrusion Press Adjuster Name Role Phone Cuba Almaguer MD Primary [...] on file Legal Sex Male 12:16 AM UNIFORM DESIGNER Gender Identity Not on file Sexual Orientation Not on file Last Filed Vital Signs Vital Sign Reading Time Taken Comments Blood Pressure 164/64 08/22/2023 3:30 PM UNIFORM DESIGNER Pulse 51 08/22/2023 3:30 PM UNIFORM DESIGNER Temperature 36.7 C (98.1 F) 08/22/2023 12:09 PM UNIFORM DESIGNER Respiratory Rate 17 08/22/2023 3:30 PM UNIFORM DESIGNER Oxygen Saturation 99% 08/22/2023 3:30 PM UNIFORM DESIGNER Inhaled Oxygen Concentration - - Weight 97.4 kg (214 lb 11.7 oz) 023 12:09 PM UNIFORM DESIGNER Height 182.9 cm (6') 08/22/2023 12:09 PM UNIFORM DESIGNER Body Mass Index 29.12 08/22/2023 12:09 PM UNIFORM DESIGNER Plan of Treatment Not on file Insurance MEDICARE [employer] [facility] MEDICARE Address: [place] [id number] [place] [id number] [facility] MEDICARE Address: [facility] [address] [place] [address] MEDICARE [employer] [facility] MEDICARE Address: [facility] [address] [place] [address] Care Teams Extrusion Press Adjuster Relationship Specialty Start Date End Date Cuba Almaguer MD [address] [place] [address] PCP - General Family Medicine 12/29/20
--- OUTSIDE RECORDS SUMMARY | 2024-12-19 12:07 | XMS_ITS | Continuity of Care Document ---
Author Name [facility] Organization [facility] Care Team Providers Care Finishing Area Supervisor Name Role Phone [facility] Unavailable Unavailable Problems Combined list of problems from [facility] and [facility] facilities. It does not include entries that were removed or entered in error. Problem Status Onset Date Problem Type Date of Resolution Comments Source Benign essential hypertension (SNOMED CT 3033272) Active Condition [facility] Hearing loss (SNOMED CT 05440105) Active Condition [facility] Knee pain (SNOMED CT 42045046) Active Condition [facility] Medications Combined list of outpatient medications from [facility] facilities.Medications provided include 1) outpatient medications from the last 15 months, and 2) patient-reported medications. Medication Details Route Status Patient Instructions Prescription Expires Prescription Number Last Dispense Date Ordering Provider Order Date Order Qty Source LISINOPRIL 40MG TAB TAKE ONE-HALF TABLET BY MOUTH ONCE A DAY ORAL ACTIVE HA GOYAL 2013 [facility] Immunizations Combined list of available immunizations from the [facility] facilities. Immunization Series Date Given Administered By Site Reaction Lot Number CVX Code Drug Peritoneal Dialysis Registered Nurse Status Comments Source TDAP 2013 115 complet ed Left Deltoid [facility] Encounters Combined list of: 1) Encounters from [facility] facilities going backup to the last 18 months, not all CT inpatient encounters are included; 2) Encounters from the [facility] facilities going backup to 280 months. Location Location Details Encounter Type Encounter Number Reason For Visit Attending Provider ADM Date DC Date Status Disposition Source [facility] Outpatient Encounter [id number] 09/15 [facility] Social History Combined list of available smoking, tobacco, and other social history from [facility] facilities. Social History Type Response Date Comment Sourc e Tobacco smoking status NHIS LIFETIME NON-USER OF TOBACCO 11/18/2013 [facility]
--- OUTSIDE RECORDS SUMMARY | 2024-12-19 12:07 | XMS_ITS ---
Author Organization [facility] Address [address] [address] [place] [address] Care Team Providers Care Enterprise Project Manager Name Role Phone zzzzMigration, zzzzProvider Unavailable Unav ailable REASON FOR VISIT [facility] Medications Medication SIG (Take, Route, Fr equency, Duration) Notes Start Date End Date Status Colchicine 0.6 MG 1 Every Day Oral 07/10/2010 Active Encounters Encounter Location Date Provider Diagnosis [facility] [address] [facility] [facility] [address] [address] [place] [address] 07/28/2023 zzzzProvider zzzzMigration Plan Of Treatment No Information Progress Notes * YUDELKA, [place] ADOB: [birth year] (74 yo M)Acc No.[id number]:07/28/2023 Patient: Hemal NEWBERRY :1950 A ge:72 Y S ex:Male Address:[address] [place] [id number] Subjective: * Chief Complaints: * E MR-Tae * Medical History: * Surgical History: * Hospitalization/Major Diagno stic Procedure: * Medications: T akingColchicine 0.6 MG Tablet 1 Every Day Oral Taking Colchicine 0.6 MG Tablet 1 Every Day Oral Objective: * Vitals: * Physical Examination: Assessment: Plan: * Treatment: * Procedure Codes: * * Date:
--- OUTSIDE RECORDS SUMMARY | 2024-12-19 12:07 | XMS_ITS | Encounter Summary ---
Author Organization [facility] Address [address] [facility] [place] [address] Care Team Providers Care Systems Project Manager Name Role Phone Cuba Almaguer MD Primary Care Provider + Encounter Details Date Type Department Care Team (Late st Contact Info) Description 11/14/2018 Lab Requisition [facility] Care DermPath Lab [address] [facility], [place] [phone] Mariela Oconnor MD [address] [facility] 3 [place] [address] Social History Tobacco Use Types Packs/Day Years [...] DERMATOPATH TECHNICAL REPORT Routine 11/13/2018 12:00 AM REVENUE CYCLE MANAGER documented in this encounter Results * DERMATOPATH TECHNICAL REPORT (11/13/2018 12:00 AM REVENUE CYCLE MANAGER) Case Report Dermatopathology Report Case: [id number] Authorizing Provider: Mariela Oconnor MD Collected: 11/13/2018 12:00 AM Pathologist: Latha Live MD Received: 11/14/2018 07:15 AM Specimen: Skin, right arm 9 1:19 PM REVENUE CYCLE MANAGER DERMATOPATHOLOGY LABORATORY Clinical History Biopsy proven melanocytic proliferation. Check margins. See [id number] 1:19 PM REVENUE CYCLE MANAGER DERMATOPATHOLOGY LABORATORY Gross Description Specimen A: Received is one formalin filled container labeled with the patient's name and designated right arm.The specimen consists of an ellipse measuring 29t24w1 mm and is oriented with the suture/notch [...] and submitted in cassettes 3-4. Jar 0. [facility] Dermatopathology Laboratory performed the technical component only. 1:19 PM [facility] DERMATOPATHOLOGY LABORATORY Embedded Images 1:19 PM [facility] DERMATOPATHOLOGY LABORATORY DISCLAIMER An external and internal positive and negative controls are appropriate for the histochemical, immunohistochemical and immunofluorescence stain(s) in this case (if any), except where stated explicitly. The performance characteristics of the stain(s) cited in this report were developed and its performance characteristic determined by the Dermatopathology Laboratory at [facility], directed by Dr. Maycol Allred. These tests need not be, and therefore are not, approved by the [place] Food and Drug Administration. The tests are used for clinical purposes. 1:19 PM [facility] DERMATOPATHOLOGY LABORATORY Pathology/Cytolog y TISSUE SPECIMEN FROM SKIN / Unknown 11/13/2018 11/14/2018 7:15 AM REVENUE CYCLE MANAGER Mariela Oconnor MD LAB - PATHOLOGY/CYTO LOGY ORDERABLES DERMATOPATHOLOGY LABORATORY [facility] - Department of Dermatology [address] [place] [address], 5th Floor Lab B [place], [place] [id number] [place] [address] documented in this encounter Visit Diagnoses Not on filedocumented in this encounter Care Teams Systems Project Manager Relationship Specialty Start Date End Date Cuba Almaguer MD [address] [address] PCP - General 12/14/22 documented as of this encounter
--- OUTSIDE RECORDS SUMMARY | 2024-12-19 12:07 | XMS_ITS | Encounter Summary ---
Author Organization [facility] Address [address] [facility] [place] [address] Care Team Providers Care Administrative Supervisor Name Role Phone Cuba Almaguer MD Primary Care Provider + Encounter Details Date Type Department Care Team (Late st Contact Info) Description 09/04/2018 Lab Requisition [facility] Care DermPath Lab [address] [facility], [place] [address] Mariela Oconnor MD [address] [facility] 3 [place] [address] Social History Tobacco Use Types Packs/Day Years [...] DERMATOPATH TECHNICAL REPORT Routine 09/03/2018 12:00 AM PLANT ENGINEER documented in this encounter Results * DERMATOPATH TECHNICAL REPORT (09/03/2018 12:00 AM PLANT ENGINEER) Case Report Dermatopathology Report Case: [id number] Authorizing Provider: Mariela Oconnor MD Collected: 09/03/2018 12:00 AM Pathologist: Tyson Allred MD Received: 09/04/2018 06:28 AM Specimen: Skin, right arm 8 4:40 PM PLANT ENGINEER DERMATOPATHOLOGY LABORATORY Addendum 1 At the request of the diagnosing physician, the technical component for MART-1/Melan A and HMB-45 was performed by [facility] Dermatopathology Laboratory. 4:40 PM PLANT ENGINEER DERMATOPATHOLOGY LABORATORY Addendum electronically signed by Tyson Allred MD on 09/09/2018 at 4:40 PM Clinical History Nevus, melanoma, nevus, irregular border, irregular color 4:40 PM [facility] DERMATOPATHOLOGY LABORATORY Gross Description Specimen A: Received is one formalin filled container labeled with the patient's name and designated right arm. The specimen consists of a shave biopsy measuring 11x8x2 mm. Jar 0. [facility] Dermatopathology Laboratory performed the technical component only. 4:40 PM [facility] DERMATOPATHOLOGY LABORATORY Embedded Images 4:40 PM [facility] DERMATOPATHOLOGY LABORATORY DISCLAIMER An external and internal positive and negative controls are appropriate for the histochemical, immunohistochemical and immunofluorescence stain(s) in this case (if any), except where stated explicitly. The performance characteristics of the stain(s) cited in this report were developed and its performance characteristic determined by the Dermatopathology Laboratory at [facility]. These tests need not be, and therefore are not, approved by the [place] Food and Drug Administration. The tests are used for clinical purposes. 4:40 PM [facility] DERMATOPATHOLOGY LABORATORY Pathology/Cytolog y TISSUE SPECIMEN FROM SKIN / Unknown 09/03/2018 09/04/2018 6:28 AM PLANT ENGINEER Mariela Oconnor MD LAB - PATHOLOGY/CYTO LOGY ORDERABLES DERMATOPATHOLOGY LABORATORY [facility] - Department of Dermatology [address] [place] [address] 5th Floor Lab [address] [phone] documented in this encounter Visit Diagnoses Not on filedocumented in this encounter Care Teams Administrative Supervisor Relationship Specialty Start Date End Date Cuba Almaguer MD [address] [place] [address] PCP - General 12/14/22 documented as of this encounter
--- OUTSIDE RECORDS SUMMARY | 2024-12-19 12:07 | XMS_ITS ---
Author Organization [facility] Address [address] [facility] [address] [place] [address] Care Team Providers Care Oscillograph Technician Name Role Phone zzzzMigration, zzzzProvider Unavailable Unav ailable REASON FOR VISIT [facility] Encounters Encounter Location Date Provider Diagnosis [facility] [address] [facility] [address] [place] [address] 07/27/2023 zzzzProvider zzzzMigration Plan Of Treatment No Information Progress Notes * Hemal JHA ADOB: [birth year] (74 yo M)Acc No.[id number]:07/27/2023 Patient: Hemal NEWBERRY :1950 A ge:72 Y S ex:Male Address:[address] [place] [address] Subjective: * Chief Complaints: * E MR-Tae * Medical History: * Surgical History: * Hospitalization/Major Diagno stic Procedure: * Medications: Objective: * Vitals: * Physical Examination: Assessment: Plan: * Treatment: * Procedure Codes: * * Date:
--- OUTSIDE RECORDS SUMMARY | 2024-12-19 12:07 | XMS_ITS | Clinical Summary ---
Author Organization [facility] [employer] Address [address] [place] [address] Care Team Providers Care Tractor Distributor Name Role Phone Cuba Almaguer MD Primary [...] on file Legal Sex Male 12:16 AM COIL TAPER Gender Identity Not on file Sexual Orientation Not on file Obstetrics History Last Filed Vital Signs Vital Sign Reading Time Taken Comments Blood Pressure 164/64 08/22/2023 3:30 PM COIL TAPER Pulse 51 08/22/2023 3:30 PM COIL TAPER Temperature 36.7 C (98.1 F) 08/22/2023 12:09 PM COIL TAPER Respiratory Rate 17 08/22/2023 3:30 PM COIL TAPER Oxygen Saturation 99% 08/22/2023 3:30 PM COIL TAPER Inhaled Oxygen Concentration - - Weight 97.4 kg (214 lb 11.7 oz) 023 12:09 PM COIL TAPER Height 182.9 cm (6') 08/22/2023 12:09 PM COIL TAPER Body Mass Index 29.12 08/22/2023 12:09 PM COIL TAPER Plan of Treatment Health Maintenance Due Date [...] SOLUTIONS MEDICARE SOLUTIONS MEDICARE SOLUTIONS Care Teams Tractor Distributor Relationship Specialty Start Date End Date Cuba Almaguer MD [address] [place] [address] PCP - General Family Medicine 12/29/20
--- OUTSIDE RECORDS SUMMARY | 2024-12-19 12:07 | XMS_ITS | Data Portability ---
Author Organization [facility] Main Office Address [address] [place] [address] Care Team Providers Care Endoscopy Specialty Technician Name Role Phone COLLETTE STRONG Primary Care Provider COLLETTE STRONG Referring Provider [phone] Assessment Encounter Date Assessment Date Assessment LastModified [...] residual pain and brusing, so we recommended [id number]-[id number] Tylenol, as he cannot take anti-inflammator ies, [...] pt for R knee. Thanks 2023 024 [facility] [place] [facility], [address], [place], [address], 18:03:19 Procedures None recorded. Surgeries None recorded. Imaging XR, knee, 3 view 2022 023 [facility] [place], [address], [place], [address], 23:05:12 Medication Orders None recorded. Patient TargetsNo [...] observ ation record ed. [email or web address] [facility] [address], [place], [address], 09/04/2023 16:09:03 Result Notes None recorded. Problems Name Problem SNOMED Code Status Onset Date Resolution Date Notes Provider Name and Address Organization Details Recorded Time Osteoarthr itis of knee 016553989 Active Not Available [facility] 3 13:28:51 Osteoarthr itis 693449281 Active Not Available [facility] 3 13:28:51 Pain of right knee joint 4418585795769 00 Active 2022 NILSA Gonzales, Rep 3 15:36:05 Problem Notes None recorded. Procedures Surgical History Date Name Laterality Status Provider Name and Address Organization Details Recorded Time Knee Replacement completed NILSA Arguello Rep 09/04/2023 15:35:33 Imaging Results Imaging Date Name Status LastModified by Organiz ation Details LastModified Time 09/04/2023 XR, knee, 3 view completed [facility] [address], [place], [address], 09/04/2023 16:09:03 Procedure Notes None recorded. Medical [...] DateTime 09/04/2023 182.88 cm 6 29.2 kg/m2 82169.36 g Joanne Paige Matthew [facility] 09/04/2023 15:37:41 Date Recorded Body height Body mass index (BMI) Body weight Pain severity - 0-10 verbal numeric rating [Score] - Reported Provider Name and Address Organization Details Last Updated DateTime 10/16/2023 182.88 cm 29.2 kg/m2 63699.36 g 3 Joanne Paige [facility] 10/16/2023 15:23:36 Social History Question Answer Notes LastModified by Organizat ion Details LastModified Time Tobacco Smoking Status Unknown If Ever Smoked Carolina Kennedylanette johnson [facility] 10/16/2023 15:22:32 What Is Your Level Of Alcohol Consumption? Occasional [email or web address] Information not available 09/04/2023 What Was The Date Of Your Most Recent Tobacco Screening? 09/04/2023 [email or web address] Information not available 10/16/2023 Sex: Unknown Functional Status None recorded. Mental Status None recorded. Family History Relationship Description Onset Age of this Age Resolved Age Notes LastModified by Organization Details LastModified Time Father Heart disease [email or web address] Not available 2022 15:34:30 Father Hypertensive disorder [email or web address] Not available 2022 15:34:41 Medical History No medical history recorded. Past Encounters Encounter ID Performer Location Encounter Start Date Encounter Closed Date Diagnosis/Indication Diagnosis SNOMED-CT Code Diagnosis ICD10 Code Diagnosis Note [id number] Nafisa Brian NP [facility] [address] [place] [address] 09/04/2023 15:11:13 09/04/2023 16:06:53 Pain of right knee joint 7904897173 29909 M25.752 [id number] Nafisa Brian, MARKETING INTERN [facility] [address] [place] [address] 10/16/2023 15:20:34 10/16/2023 16:34:10 Pain of right knee joint 6056100408 98004 M25.561 Health Concerns Section Related Observation LastModified by Organization Detai ls LastModified Time None Recorded Concern Status LastModified by Organization Details LastModified Time None Recorded Advance Directives Directive None Recorded Payers Encounter Date Sequence Insurance Name Policy Number Policy Valentino Covered Member ID Valentino Member ID Guarantor Name 09/04/2023 1 [facility] - [employer] - MEDICARE COMPLETE CHOICE PLAN 1 (MEDICARE REPLACEMENT PPO) [id number] Hemal Tracy Jr [id number] Hemal Tracy 10/16/2023 1 [facility] - [employer] - MEDICARE COMPLETE CHOICE PLAN 1 (MEDICARE REPLACEMENT PPO) [id number] Hemal Tracy Jr [id number] Hemal Tracy
--- OUTSIDE RECORDS SUMMARY | 2024-12-19 12:07 | XMS_ITS | Encounter Summary ---
Author Organization [facility] Address [address] [facility] [place] [address] Care Team Providers Care Electrical Technology Instructor Name Role Phone Cuba Almaguer MD Primary Care Provider + Encounter Details Date Type Department Care Team (Late st Contact Info) Description 09/11/2018 Lab Requisition [facility] [address] [facility], [place] [phone] Swetha Newton DO [address] [facility] 3 [place] [address] Social History Tobacco Use Types Packs/Day Years [...] DERMPATH SLIDE CONSULT Routine 09/11/2018 12:00 AM HANGER documented in this encounter Results * DERMPATH SLIDE CONSULT (09/11/2018 12:00 AM HANGER) Case Report Dermatopathology Report Case: [id number] Authorizing Provider: Swetha Newton DO Collected: 09/11/2018 12:00 AM Pathologist: Latha Live MD Received: 09/11/2018 09:55 AM Specimen: Slide(s), Right arm, OSC# [id number] 8 4:54 PM H[facility]ER DERMATOPATHOLOGY LABORATORY Final Diagnosis Specimen A. 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 Swetha Newton, a consult will be performed on 5 slide(s) labeled [id number]. Compound melanocytic proliferation; present at margin. All slides returned. Any additional sections, special stains or immunohistochemical stains performed by our laboratory will be kept here on file. 4:54 PM [facility] DERMATOPATHOLOGY LABORATORY Microscopic Description Specimen A. Slide(s), Right arm, OSC# [id number]: This is a compound nevus. There is [...] agrees with the diagnosis. 8 4:54 PM [facility] DERMATOPATHOLOGY LABORATORY Disclaimer An external and internal positive and negative controls are appropriate for the histochemical, immunohistochemical and immunofluorescence stain(s) in this case (if any), except where stated explicitly. The performance characteristics of the stain(s) cited in this report were developed and its performance characteristic determined by the Dermatopathology Laboratory at [facility]. These tests need not be, and therefore are not, approved by the [place] Food and Drug Administration. The tests are used for clinical purposes. Billing Codes Specimen Charges Stain Charges 21603 1 78010 23822 91699 1 1 1 8 4:54 PM [facility] Embedded Images 8 4:54 PM [facility] Pathology/Cytolog y SLIDE / Unknown 09/11/2018 09/11/2018 9:55 AM HANGER Swethamiguelito Elam Aman DO LAB - PATHOLOGY/C YTOLOGY ORDERABLES DERMATOPATHOLOGY LABORATORY [facility] - Department of Dermatology [address] [place] [address], 5th Floor Lab [address] [phone] documented in this encounter Visit Diagnoses Not on filedocumented in this encounter Care Teams Electrical Technology Instructor Relationship Specialty Start Date End Date Cuba Almaguer MD [address] [address] PCP - General 12/14/22 documented as of this encounter
--- OUTSIDE RECORDS SUMMARY | 2024-12-19 12:07 | XMS_ITS | Clinical Summary ---
Author Organization [facility] Care Team Providers Care Enrollment Management Manager Name Role Phone Unavailable Primary Care Provider Unavailabl e Social History Tobacco Use Types Packs/Day Years Used Date Smoking Tobacco: Never Assessed Sex and Gender Information Value Date Recorded Sex Assigned at Not on file Legal Sex Male 1:59 PM MOTHERCRAFT NURSE Gender Identity Not on file Sexual Orientation [...]
[2024-12-19 12:23] VITALS: BP 145/48; PULSE 84; RESP 18; TEMP 37.2; O2SAT 94
[2024-12-19 13:05] LABS: Influenza A QL RT-PCR Negative (Negative); Influenza B QL RT-PCR Negative (Negative); RSV RNA, RT-PCR Negative (Negative); SARS-CoV-2 RNA PCR Negative (Negative)
[2024-12-19 14:30] VITALS: BP 132/59; PULSE 81; RESP 14; O2SAT 94
--- OUTSIDE RECORDS SUMMARY | 2024-12-19 15:06 | XMS_ITS | Clinical Summary ---
Author Organization [facility] Care Team Providers Care Registered Appraiser Name Role Phone Unavailable Primary Care Provider Unavailabl e Social History Tobacco Use Types Packs/Day Years Used Date Smoking Tobacco: Never Assessed Sex and Gender Information Value Date Recorded Sex Assigned at Not on file Legal Sex Male 1:59 PM EDUCATION ASSISTANT Gender Identity Not on file Sexual Orientation [...]
--- OUTSIDE RECORDS SUMMARY | 2024-12-19 15:06 | XMS_ITS | Clinical Summary ---
Author Organization [facility] Address [address] [place] [address] Care Team Providers Care Fitting Room Supervisor Name Role Phone Cuba Almaguer MD Primary Care Provider + Source Comments [facility],non-owned Affiliates and Associated Physician Practices is amultiple site organization consisting of ambulatory clinics and hospital sitesin [place], [place], [place] and [place]. This disclosure is being madepursuant to the Care Everywhere program and may not contain all information available regarding this patient. Last updated 18.[facility] [employer] Social History Tobacco Use Types Packs/Day Years [...] age to complete this topic Care Teams Fitting Room Supervisor Relationship Specialty Start Date End Date Cuba Almaguer MD [address] [facility] [address] [place] [address] PCP - General 12/14/22
--- OUTSIDE RECORDS SUMMARY | 2024-12-19 15:06 | XMS_ITS | Referral Summary ---
Author Organization [facility] [address] [place] Address [address] [place] [address] Care Team Providers Care Brick Baker Name Role Phone Cuba Almaguer MD Primary [...] on file Legal Sex Male 12:16 AM TERRAZZO JOURNEYMAN Gender Identity Not on file Sexual Orientation Not on file Last Filed Vital Signs Vital Sign Reading Time Taken Comments Blood Pressure 164/64 08/22/2023 3:30 PM TERRAZZO JOURNEYMAN Pulse 51 08/22/2023 3:30 PM TERRAZZO JOURNEYMAN Temperature 36.7 C (98.1 F) 08/22/2023 12:09 PM TERRAZZO JOURNEYMAN Respiratory Rate 17 08/22/2023 3:30 PM TERRAZZO JOURNEYMAN Oxygen Saturation 99% 08/22/2023 3:30 PM TERRAZZO JOURNEYMAN Inhaled Oxygen Concentration - - Weight 97.4 kg (214 lb 11.7 oz) 023 12:09 PM TERRAZZO JOURNEYMAN Height 182.9 cm (6') 08/22/2023 12:09 PM TERRAZZO JOURNEYMAN Body Mass Index 29.12 08/22/2023 12:09 PM TERRAZZO JOURNEYMAN Plan of Treatment Not on file Insurance MEDICARE SOLUTIONS Member Subscriber Plan / Payer ( fective 2020-Present) Name:Hemal Tracy Relation to Subscriber:Self Name:Hemal Tracy Payer ID:[id number] (NAIC) Type:[facility] MEDIC[facility] Address: [place] [id number] [place] [phone] MEDICARE SOLUTIONS Care Teams Brick Baker Relationship Specialty Start Date End Date Cuba Almaguer MD [address] [place] [address] PCP - General Family Medicine 12/29/20
--- OUTSIDE RECORDS SUMMARY | 2024-12-19 15:06 | XMS_ITS | Clinical Summary ---
Author Organization [facility] [employer] Address [address] [place] [address] Care Team Providers Care Laboratory Helper Name Role Phone Cuba Almaguer MD [...] on file Legal Sex Male 12:16 AM GEAR REPAIR SUPERVISOR Gender Identity Not on file Sexual Orientation Not on file Obstetrics History Last Filed Vital Signs Vital Sign Reading Time Taken Comments Blood Pressure 164/64 08/22/2023 3:30 PM GEAR REPAIR SUPERVISOR Pulse 51 08/22/2023 3:30 PM GEAR REPAIR SUPERVISOR Temperature 36.7 C (98.1 F) 08/22/2023 12:09 PM GEAR REPAIR SUPERVISOR Respiratory Rate 17 08/22/2023 3:30 PM GEAR REPAIR SUPERVISOR Oxygen Saturation 99% 08/22/2023 3:30 PM GEAR REPAIR SUPERVISOR Inhaled Oxygen Concentration - - Weight 97.4 kg (214 lb 11.7 oz) 023 12:09 PM GEAR REPAIR SUPERVISOR Height 182.9 cm (6') 08/22/2023 12:09 PM GEAR REPAIR SUPERVISOR Body Mass Index 29.12 08/22/2023 12:09 PM GEAR REPAIR SUPERVISOR Plan of Treatment Health Maintenance Due Date [...] SOLUTIONS MEDICARE SOLUTIONS MEDICARE SOLUTIONS Care Teams Laboratory Helper Relationship Specialty Start Date End Date Cuba Almaguer MD [address] [place] [address] PCP - General Family Medicine 12/29/20
--- OUTSIDE RECORDS SUMMARY | 2024-12-19 15:06 | XMS_ITS | Encounter Summary ---
Author Organization [facility] Address [address] [place] [address] Care Team Providers Care Toppiece Chopper Name Role Phone Cuba Almagure MD Primary Care Provider + Encounter Details Date Type Department Care Team (Late st Contact Info) Description 11/14/2018 Lab Requisition [facility] Care DermPath Lab [address] [facility], [place] [phone] Mariela Oconnor MD [address] [facility] 3 [place] [address] Social History Tobacco Use Types Packs/Day Years [...] DERMATOPATH TECHNICAL REPORT Routine 11/13/2018 12:00 AM HEMSTITCHING MACHINE OPERATOR documented in this encounter Results * DERMATOPATH TECHNICAL REPORT (11/13/2018 12:00 AM HEMSTITCHING MACHINE OPERATOR) Case Report Dermatopathology Report Case: [id number] Authorizing Provider: Mariela Oconnor MD Collected: 11/13/2018 12:00 AM Pathologist: Latha Live MD Received: 11/14/2018 07:15 AM Specimen: Skin, right arm 9 1:19 PM HEMSTITCHING MACHINE OPERATOR DERMATOPATHOLOGY LABORATORY Clinical History Biopsy proven melanocytic proliferation. Check margins. See [id number] 9 1:19 PM HEMSTITCHING MACHINE OPERATOR DERMATOPATHOLOGY LABORATORY Gross Description Specimen A: Received is one formalin filled container labeled with the patient's name and designated right arm.The specimen consists of an ellipse measuring 87t24h9 mm and is oriented with the suture/notch [...] and submitted in cassettes 3-4. Jar 0. [facility] Dermatopathology Laboratory performed the technical component only. 1:19 PM [facility] DERMATOPATHOLOGY LABORATORY Embedded Images 1:19 PM [facility] DERMATOPATHOLOGY LABORATORY DISCLAIMER An external and internal positive and negative controls are appropriate for the histochemical, immunohistochemical and immunofluorescence stain(s) in this case (if any), except where stated explicitly. The performance characteristics of the stain(s) cited in this report were developed and its performance characteristic determined by the Dermatopathology Laboratory at [facility], directed by Dr. Maycol Allred. These tests need not be, and therefore are not, approved by the [place] Food and Drug Administration. The tests are used for clinical purposes. 1:19 PM [facility] DERMATOPATHOLOGY LABORATORY Pathology/Cytolog y TISSUE SPECIMEN FROM SKIN / Unknown 11/13/2018 11/14/2018 7:15 AM HEMSTITCHING MACHINE OPERATOR Mariela Oconnor MD LAB - PATHOLOGY/CYTO LOGY ORDERABLES DERMATOPATHOLOGY LABORATORY [facility] - Department of Dermatology [address] [place] [address], 5th Floor Lab B [place], [place] [address] [place] [address] documented in this encounter Visit Diagnoses Not on filedocumented in this encounter Care Teams Toppiece Chopper Relationship Specialty Start Date End Date Cuba Almaguer MD [address] [address] PCP - General 12/14/22 documented as of this encounter
--- OUTSIDE RECORDS SUMMARY | 2024-12-19 15:06 | XMS_ITS | Encounter Summary ---
Author Organization [facility] Address [address] [facility] [place] [address] Care Team Providers Care Incising Machine Operator Name Role Phone Cuba Almaguer MD Primary Care Provider + Encounter Details Date Type Department Care Team (Late st Contact Info) Description 11/20/2019 Lab Requisition [facility] DermPath Lab [address] [facility], [place] [address] Mariela Oconnor MD [address] [facility] 3 [place] [address] Social History Tobacco Use Types Packs/Day Years [...] Comments DERMATOPATHOLOGY Routine 11/19/2019 12:0 0 AM IMPLEMENTATION ADVISOR documented in this encounter Results * DERMATOPATHOLOGY (11/19/2019 12:00 AM IMPLEMENTATION ADVISOR) Case Report Dermatopathology Report Case: [id number] Authorizing Provider: Mariela Oconnor MD Collected: 11/19/2019 12:00 AM Ordering Location: [facility] D[facility] Lab Received: 11/20/2019 07:02 AM Pathologist: Wendi Kim MD Specimen: Skin, left back 0 1:41 PM IMPLEMENTATION ADVISOR DERMATOPATHOLOGY LABORATORY Final Diagnosis Specimen A. SKIN, left back: BASAL CELL CARCINOMA, SUPERFICIAL MULTIFOCAL (C44.519) 0 1:41 PM IMPLEMENTATION ADVISOR DERMATOPATHOLOGY LABORATORY Clinical History BCC, bleeding. Eagar plaque. 0 1:41 PM IMPLEMENTATION ADVISOR DERMATOPATHOLOGY LABORATORY Gross Description Specimen A: Received is one formalin filled container labeled with the patient's name and designated left back. The specimen consists of a shave measuring 9r9r6rp. Jar 0. 0 1:41 PM IMPLEMENTATION ADVISOR DERMATOPATHOLOGY LABORATORY Microscopic Description Specimen A. SKIN, left back: Attached to the undersurface of the epidermis, there are small aggregates of basaloid cells with a high nuclear to cytoplasmic ratio and peripheral palisading. 0 1:41 PM IMPLEMENTATION ADVISOR DERMATOPATHOLOGY LABORATORY Disclaimer An external and internal positive and negative controls are appropriate for the histochemical, immunohistochemical and immunofluorescence stain(s) in this case (if any), except where stated explicitly. The performance characteristics of the stain(s) cited in this report were developed and its performance characteristic determined by the Dermatopathology Laboratory at [facility], directed by Dr. Maycol Allred. These tests need not be, and therefore are not, approved by the [place] Food and Drug Administration. The tests are used for clinical purposes. Billing Codes Specimen Charges Stain Charges 30334 1 0 1:41 PM IMPLEMENTATION ADVISOR DERMATOPATHOLOGY LABORATORY Embedded Images 0 1:41 PM IMPLEMENTATION ADVISOR DERMATOPATHOLOGY LABORATORY Pathology/Cytolog y TISSUE SPECIMEN FROM SKIN / Unknown 11/19/2019 11/20/2019 7:02 AM IMPLEMENTATION ADVISOR Mariela Oconnor MD LAB - PATHOLOGY/CYTO LOGY ORDERABLES DERMATOPATHOLOGY LABORATORY [facility] - Department of Dermatology [address] [place] [address], 5th Floor Lab B [place], [place] [phone] [place] [address] documented in this encounter Visit Diagnoses Not on filedocumented in this encounter Care Teams Incising Machine Operator Relationship Specialty Start Date End Date Cuba Almaguer MD [address] [place] [address] PCP - General 12/14/22 documented as of this encounter
--- OUTSIDE RECORDS SUMMARY | 2024-12-19 15:06 | XMS_ITS | Encounter Summary ---
Author Organization [facility] Address [address] [facility] [place] [address] Care Team Providers Care Production Packager Name Role Phone Cuba Almaguer MD Primary Care Provider + Encounter Details Date Type Department Care Team (Late st Contact Info) Description 09/04/2018 Lab Requisition [facility] Care DermPath Lab [address] [facility], [place] [phone] Mariela Oconnor MD [address] [facility] 3 [place] [address] Social History Tobacco Use Types Packs/Day Years [...] DERMATOPATH TECHNICAL REPORT Routine 09/03/2018 12:00 AM SECURITY DEVELOPER documented in this encounter Results * DERMATOPATH TECHNICAL REPORT (09/03/2018 12:00 AM SECURITY DEVELOPER) Case Report Dermatopathology Report Case: [id number] Authorizing Provider: Mariela Oconnor MD Collected: 09/03/2018 12:00 AM Pathologist: Tyson Allred MD Received: 09/04/2018 06:28 AM Specimen: Skin, right arm 8 4:40 PM SECURITY DEVELOPER DERMATOPATHOLOGY LABORATORY Addendum 1 At the request of the diagnosing physician, the technical component for MART-1/Melan A and HMB-45 was performed by [facility] Dermatopathology Laboratory. 4:40 PM SECURITY DEVELOPER DERMATOPATHOLOGY LABORATORY Addendum electronically signed by Tyson Allred MD on 09/09/2018 at 4:40 PM Clinical History Nevus, melanoma, nevus, irregular border, irregular color 4:40 PM [facility] DERMATOPATHOLOGY LABORATORY Gross Description Specimen A: Received is one formalin filled container labeled with the patient's name and designated right arm. The specimen consists of a shave biopsy measuring 11x8x2 mm. Jar 0. [facility] Dermatopathology Laboratory performed the technical component only. 4:40 PM [facility] DERMATOPATHOLOGY LABORATORY Embedded Images 4:40 PM [facility] DERMATOPATHOLOGY LABORATORY DISCLAIMER An external and internal positive and negative controls are appropriate for the histochemical, immunohistochemical and immunofluorescence stain(s) in this case (if any), except where stated explicitly. The performance characteristics of the stain(s) cited in this report were developed and its performance characteristic determined by the Dermatopathology Laboratory at [facility]. These tests need not be, and therefore are not, approved by the [place] Food and Drug Administration. The tests are used for clinical purposes. 4:40 PM [facility] DERMATOPATHOLOGY LABORATORY Pathology/Cytolog y TISSUE SPECIMEN FROM SKIN / Unknown 09/03/2018 09/04/2018 6:28 AM SECURITY DEVELOPER Mariela Oconnor MD LAB - PATHOLOGY/CYTO LOGY ORDERABLES DERMATOPATHOLOGY LABORATORY [facility] - Department of Dermatology [address] [place] [address] 5th Floor Lab [address] [phone] documented in this encounter Visit Diagnoses Not on filedocumented in this encounter Care Teams Production Packager Relationship Specialty Start Date End Date Cuba Almaguer MD [address] [place] [address] PCP - General 12/14/22 documented as of this encounter
--- OUTSIDE RECORDS SUMMARY | 2024-12-19 15:06 | XMS_ITS | Encounter Summary ---
Author Organization [facility] Address [address] [facility] [place] [address] Care Team Providers Care Cupola Operator Name Role Phone Cuba Almaguer MD Primary Care Provider + Encounter Details Date Type Department Care Team (Late st Contact Info) Description 11/27/2023 Lab Requisition [facility] - DermPath Lab [address] [facility], [place] [address] Mounika Villagomez MD [address] [facility] 3 [place] [address] Social History Tobacco Use Types Packs/Day Years [...] Comments DERMATOPATHOLOGY Routine 11/27/2023 10:1 4 AM TYPESETTING MACHINE OPERATOR/TENDER documented in this encounter Results * DERMATOPATHOLOGY (11/27/2023 10:14 AM TYPESETTING MACHINE OPERATOR/TENDER) Case Report Dermatopathology Report Case: [id number] Authorizing Provider: Mounika Villagomez MD Collected: 11/27/2023 10:14 AM Ordering Location: [facility] DermPath Lab Received: 11/28/2023 08:06 AM Pathologist: Kinza Farah MD Specimen: Skin, superior to right brow 9:10 AM TYPESETTING MACHINE OPERATOR/TENDER DERMATOPATHOLOGY LABORATORY Final Diagnosis Specimen A. SKIN, superior to right brow: BASAL CELL CARCINOMA, INFILTRATIVE PATTERN, WITH KERATINIZATION (C44.319) (see microscopic description and comment) 9:10 AM TYPESETTING MACHINE OPERATOR/TENDER DERMATOPATHOLOGY LABORATORY Clinical History R/O BCC Growing, Non-Healing 4 9:10 AM [facility] DERMATOPATHOLOGY LABORATORY Gross Description Specimen A: Received is one formalin filled container labeled with the patient's name and designated superior to right brow. The specimen consists of a shave biopsy measuring 9x9x2 mm. Jar 0. 4 9:10 AM [facility] DERMATOPATHOLOGY LABORATORY Microscopic Description Specimen [...] who concurs with the diagnosis. 9:10 AM [facility] DERMATOPATHOLOGY LABORATORY Disclaimer An external and internal positive and negative controls are appropriate for the histochemical, immunohistochemical and immunofluorescence stain(s) in this case (if any), except where stated explicitly. The performance characteristics of the stain(s) cited in this report were developed and its performance characteristic determined by the Dermatopathology Laboratory at [facility], directed by Dr. Maycol Allred. These tests need not be, and therefore are not, approved by the [place] Food and Drug Administration. The tests are used for clinical purposes. Billing Codes Specimen Charges Stain Charges 17716 1 13618 1 4 9:10 AM [facility] DERMATOPATHOLOGY LABORATORY Embedded Images 4 9:10 AM [facility] DERMATOPATHOLOGY LABORATORY Pathology/Cytolo gy TISSUE SPECIMEN FROM SKIN / Unknown 11/27/2023 10:14 AM TYPESETTING MACHINE OPERATOR/TENDER 11/28/2023 8:06 AM [facility] Mounika Villagomez MD LAB - PATHOLOGY/CYT OLOGY ORDERABLES DERMATOPATHOLOGY LABORATORY [facility] - Department of Dermatology [address], 3rd Floor [address] [phone] documented in this encounter Visit Diagnoses Not on filedocumented in this encounter Care Teams Cupola Operator Relationship Specialty Start Date End Date Cuba Almaguer MD [address] [address] PCP - General 12/14/22 documented as of this encounter
--- OUTSIDE RECORDS SUMMARY | 2024-12-19 15:06 | XMS_ITS | Referral Summary ---
Author Organization [facility] Address [address] [place] [address] Care Team Providers Care Market Research Coordinator Name Role Phone Cuba Almaguer MD Primary Care Provider + Source Comments [facility],non-owned Affiliates and Associated Physician Practices is amultiple site organization consisting of ambulatory clinics and hospital sitesin [place], [place], [place] and [place]. This disclosure is being madepursuant to the Care Everywhere program and may not contain all information available regarding this patient. Last updated 18.[facility] [employer] Social History Tobacco Use Types Packs/Day Years Used Date Smoking Tobacco: Never Assessed Sex and Gender Information Value Date Recorded Sex Assigned at Not on file Gender Identity Not on file Sexual Orientation Not on file Plan of Treatment Not on file Care Teams Market Research Coordinator Relationship Specialty Start Date End Date Cuba Almaguer MD [address] [address] PCP - General 12/14/22
--- OUTSIDE RECORDS SUMMARY | 2024-12-19 15:06 | XMS_ITS | Encounter Summary ---
Author Organization [facility] Address [address] [facility] [place] [address] Care Team Providers Care Cell Maker Name Role Phone Cbua Almaguer MD Primary Care Provider + Encounter Details Date Type Department Care Team (Late st Contact Info) Description 09/11/2018 Lab Requisition [facility] [address] [facility], [place] [phone] Swetha Newton DO [address] [facility] 3 [place] [address] Social History Tobacco Use Types Packs/Day Years [...] DERMPATH SLIDE CONSULT Routine 09/11/2018 12:00 AM AMUSEMENT PARK ENTERTAINER documented in this encounter Results * DERMPATH SLIDE CONSULT (09/11/2018 12:00 AM AMUSEMENT PARK ENTERTAINER) Case Report Dermatopathology Report Case: [id number] Authorizing Provider: Swetha Newton DO Collected: 09/11/2018 12:00 AM Pathologist: Latha Live MD Received: 09/11/2018 09:55 AM Specimen: Slide(s), Right arm, OSC# [id number] 8 4:54 PM AMUSEMENT PARK ENTERTAINER DERMATOPATHOLOGY LABORATORY Final Diagnosis Specimen A. 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 Swetha Newton, a consult will be performed on 5 slide(s) labeled [id number]. Compound melanocytic proliferation; present at margin. All slides returned. Any additional sections, special stains or immunohistochemical stains performed by our laboratory will be kept here on file. 4:54 PM [facility] DERMATOPATHOLOGY LABORATORY Microscopic Description Specimen A. Slide(s), Right arm, OSC# [id number]: This is a compound nevus. There is [...] agrees with the diagnosis. 8 4:54 PM [facility] DERMATOPATHOLOGY LABORATORY Disclaimer An external and internal positive and negative controls are appropriate for the histochemical, immunohistochemical and immunofluorescence stain(s) in this case (if any), except where stated explicitly. The performance characteristics of the stain(s) cited in this report were developed and its performance characteristic determined by the Dermatopathology Laboratory at [facility]. These tests need not be, and therefore are not, approved by the [place] Food and Drug Administration. The tests are used for clinical purposes. Billing Codes Specimen Charges Stain Charges 39112 1 [address]678 [address] 55334 1 1 1 8 4:54 PM AMUSEMENT PARK ENTERTAINER DERMATOPATHOLOGY LABORATORY Embedded Images 8 4:54 PM AMUSEMENT PARK ENTERTAINER DERMATOPATHOLOGY LABORATORY Pathology/Cytolog y SLIDE / Unknown 09/11/2018 09/11/2018 9:55 AM AMUSEMENT PARK ENTERTAINER Swethamiguelito Elam Aman DO LAB - PATHOLOGY/C YTOLOGY ORDERABLES DERMATOPATHOLOGY LABORATORY [facility] - Department of Dermatology [address] [place] [address], 5th Floor Lab B [address] [phone] documented in this encounter Visit Diagnoses Not on filedocumented in this encounter Care Teams Cell Maker Relationship Specialty Start Date End Date Cuba Almaguer MD [address] [address] PCP - General 12/14/22 documented as of this encounter
--- OUTSIDE RECORDS SUMMARY | 2024-12-19 15:06 | XMS_ITS | Encounter Summary ---
Author Organization [facility] Address [address] [facility] [place] [address] Care Team Providers Care Braille Translator Name Role Phone Cuba Almaguer MD Primary Care Provider + Encounter Details Date Type Department Care Team (Late st Contact Info) Description 02/05/2020 Lab Requisition [facility] DermPath Lab [address] [facility], [place] [address] Mariela Oconnor MD [address] [facility] 3 [place] [address] Social History Tobacco Use Types Packs/Day Years [...] AM CDT) Case Report Dermatopathology Report Case: [id number] Authorizing Provider: Mariela Oconnor MD Collected: 02/04/2020 12:00 AM Ordering Location: [facility] DermPath Lab Received: 02/05/2020 06:47 AM Pathologist: Tyson Allred MD Specimen: Skin, left back 0 1:50 PM CDT DERMATOPATHOLOGY LABORATORY Clinical History Bx proven BCC. Check margins. Previous Bx: [id number]. 0 1:50 PM CDT DERMATOPATHOLOGY LABORATORY Gross Description Specimen A: Received is one formalin filled container labeled with the patient's name and designated left back.The specimen consists of an ellipse measuring 18k70c5mo and is oriented with the notch at [...] and submitted in cassettes 3-5. Jar 0. [facility] Dermatopathology Laboratory performed the technical component [...] characteristic determined by the Dermatopathology Laboratory at [facility], directed by Dr. Maycol Allred. These [...] DERMATOPATHOLOGY LABORATORY [facility] - Department of Dermatology [facility], 5th [place] [address], [facility] [phone] documented in this encounter Visit Diagnoses Not on filedocumented in this encounter Care Teams Braille Translator Relationship Specialty Start Date End Date Cuba Almaguer MD [address] [address] PCP - General 3/10/23 documented as of this encounter
--- OUTSIDE RECORDS SUMMARY | 2024-12-19 15:06 | XMS_ITS | Continuity of Care Document ---
Author Name [facility] Organization [facility] Care Team Providers Care Loading Unit Operator Seating Name Role Phone [facility] Unavailable Unavailable Problems Combined list of problems from [facility] and [facility] facilities. It does not include entries that were removed or entered in error. Problem Status Onset Date Problem Type Date of Resolution Comments Source Benign essential hypertension (SNOMED CT 5129459) Active Condition [facility] Hearing loss (SNOMED CT 12600540) Active Condition [facility] Knee pain (SNOMED CT 09283331) Active Condition [facility] Medications Combined list of outpatient medications from [facility] and [facility] facilities.Medications provided include 1) outpatient medications from the last 15 months, and 2) patient-reported medications. Medication Details Route Status Patient Instructions Prescription Expires Prescription Number Last Dispense Date Ordering Provider Order Date Order Qty Source LISINOPRIL 40MG TAB TAKE ONE-HALF TABLET BY MOUTH ONCE A DAY ORAL ACTIVE HA GOYAL 2013 [facility] Immunizations Combined list of available immunizations from the [facility] and [facility] facilities. Immunization Series Date Given Administered By Site Reaction Lot Number CVX Code Drug Junior Qa Analyst Status Comments Source TDAP 2013 115 complet ed Left Deltoid [facility] Encounters Combined list of: 1) Encounters from [facility] facilities going backup to the last 18 months, not all [place] inpatient encounters are included; 2) Encounters from the [facility] facilities going backup to 280 months. Location Location Details Encounter Type Encounter Number Reason For Visit Attending Provider ADM Date DC Date Status Disposition Source [facility] Outpatient Encounter [id number] 09/15 [facility] Social History Combined list of available smoking, tobacco, and other social history from [facility] facilities. Social History Type Response Date Comment Sourc e Tobacco smoking status NHIS LIFETIME NON-USER OF TOBACCO 11/18/2013 [facility]
--- OUTSIDE RECORDS SUMMARY | 2024-12-19 15:06 | XMS_ITS | Patient Health Summary ---
Author Organization [facility] Address [address] [place] [address] Care Team Providers Care Manager Assembly Name Role Phone Cuba Almaguer MD Primary Care Provider + Note from [facility][note 3],non-owned Affiliates and Associated Physician Practices is amultiple site organization consisting of ambulatory clinics and hospital sitesin [place], [place], [place]. This disclosure is being madepursuant to the Care Everywhere program and may not contain all information available regarding this patient. 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 Case Report Dermatopathology Report Case: [id number] Authorizing Provider: Mounika Villagomez MD Collected: 11/27/2023 10:14 AM Ordering Location: [facility] Received: 11/28/2023 08:06 AM Pathologist: Kinza Farah MD Specimen: Skin, superior to right brow 9:10 AM [facility] Final Diagnosis Specimen A. SKIN, superior to right brow: BASAL CELL CARCINOMA, INFILTRATIVE PATTERN, WITH KERATINIZATION (C44.319) (see microscopic description and comment) 9:10 AM [facility]MAT[facility] Clinical History R/O BCC Growing, Non-Healing 9:10 AM [facility] Gross Description Specimen A: Received is one formalin filled container labeled with the patient's name and designated superior to right brow. The specimen consists of a shave biopsy measuring 9x9x2 mm. Jar 0. 9:10 AM [facility] Microscopic Description Specimen A. SKIN, superior to right brow: Sections show angulate aggregations of basaloid and squamous keratinocytes in the dermis, with fibrotic stroma. Some aggregations show central keratinization. BerEp4 is positive within the basaloid nests and focally positive within those with keratinization. COMMENT: This case has been reviewed by Dr. Janina Farah who concurs with the diagnosis. 9:10 AM [facility] Disclaimer An external and internal positive and negative controls are appropriate for the histochemical, immunohistochemical and immunofluorescence stain(s) in this case (if any), except where stated explicitly. The performance characteristics of the stain(s) cited in this report were developed and its performance characteristic determined by the Dermatopathology Laboratory at [facility], directed by Dr. Maycol Allred. These tests need not be, and therefore are not, approved by the [place] Food and Drug Administration. The tests are used for clinical purposes. Billing Codes Specimen Charges Stain Charges 08207 1 96956 1 9:10 AM [facility] Embedded Images 9:10 AM [facility] Pathology/Cytolo gy TISSUE SPECIMEN FROM SKIN / Unknown 11/27/2023 10:14 AM [employer] 11/28/2023 8:06 AM [employer] Mounika Villagomez MD LAB - PATHOLOGY/CYT OLOGY ORDERABLES DERMATOPATHOLOGY LABORATORY [facility] Department of Dermatology [facility] [address], [address] [phone] * DERMATOPATH TECHNICAL REPORT (02/04/2020 12:00 AM CDT) Only the most recent of3 resultswithin the time period is included. Case Report Dermatopathology Report Case: [id number] Authorizing Provider: Mariela Oconnor MD Collected: 02/04/2020 12:00 AM Ordering Location: [facility] Received: 02/05/2020 06:47 AM Pathologist: Tyson Allred MD Specimen: Skin, left back 0 1:50 PM CDT DERMATOPATHOLOGY LABORATORY Clinical History Bx proven BCC. Check margins. Previous Bx: [id number]. 0 1:50 PM CDT DERMATOPATHOLOGY LABORATORY Gross Description Specimen A: Received is one formalin filled container labeled with the patient's name and designated left back.The specimen consists of an ellipse measuring [id number] and is oriented with the notch at [...] and submitted in cassettes 3-5. Jar 0. [facility] Dermatopathology Laboratory performed the technical component only. [...] determined by the Dermatopathology Laboratory at [facility], directed by Dr. Maycol Allred. These tests need not be, and therefore are not, approved by the [place] Food and Drug Administration. The tests are used for clinical purposes. 0 1:50 PM CDT DERMATOPATHOLOGY LABORATORY Pathology/Cytolog y TISSUE SPECIMEN FROM SKIN / Unknown 02/04/2020 02/05/2020 6:47 AM CDT Mariela Oconnor MD LAB - PATHOLOGY/CYTO LOGY ORDERABLES DERMATOPATHOLOGY LABORATORY [facility] - Department of Dermatology [address] [place] [address], [address] Lab [address] [phone] * DERMPATH SLIDE CONSULT (09/11/2018 12:00 AM [facility]) Case Report Dermatopathology Report Case: [id number] Authorizing Provider: Swetha Newton DO Collected: 09/11/2018 12:00 AM Pathologist: Latha Live MD Received: 09/11/2018 09:55 AM Specimen: Slide(s), Right arm, OSC# [id number] 8 4:54 PM [facility] [facility] [facility] DERMATOPATHOLOGY LABORATORY Final Diagnosis Specimen A. 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 Swetha Newton, a consult will be performed on 5 slide(s) labeled [id number]. Compound melanocytic proliferation; present at margin. All slides returned. Any additional sections, special stains or immunohistochemical stains performed by our laboratory will be kept here on file. 8 4:54 PM [facility] DERMATOPATH[facility] Microscopic Description Specimen A. Slide(s), Right arm, OSC# [id number]: This is a compound nevus. There is [...] agrees with the diagnosis. 8 4:54 PM [facility] DERMATOPATH[facility] Disclaimer An external and internal positive and negative controls are appropriate for the histochemical, immunohistochemical and immunofluorescence stain(s) in this case (if any), except where stated explicitly. The performance characteristics of the stain(s) cited in this report were developed and its performance characteristic determined by the Dermatopathology Laboratory at [facility]. These tests need not be, and therefore are not, approved by the [place] Food and Drug Administration. The tests are used for clinical purposes. Billing Codes Specimen Charges Stain Charges 06898 1 [id number] 93335 01748 1 1 1 8 4:54 PM [employer] DERMATOPATHOLOGY LABORATORY Embedded Images 8 4:54 PM [facility] DERMATOPATH[facility]Y [facility] Pathology/Cytolog y SLIDE / Unknown 09/11/2018 09/11/2018 9:55 AM JO[employer]ACHINE Swetha [place] DO LAB - PATHOLOGY/C YTOLOGY ORDERABLES DERMATOPATHOLOGY LABORATORY [facility] - Department of Dermatology [address] [place] [address], [address] [place] [address], [facility] [phone] Care Teams Manager Assembly Relationship Specialty Start Date End Date Cuba Almaguer MD [address] [address] PCP - General 12/14/22
--- NOTE | 2024-12-19 16:00 | ED_ITS ---
HPI - General Adult General Chief complaint: Upper Respiratory Infection Stated complaint: UPPER RESP S/SX Time Seen by Provider: 12/19/24 14:59 History of Present Illness HPI narrative: 74-year-old male presents to the emergency department for evaluation for cough congestion body aches and fatigue. Patient reports symptoms have been ongoing for the last 3 days. Patient denies any prior history of COPD. Patient denies any shortness of breath. Related Data Allergies Allergy/AdvReac Type Severity Reaction Status Date / Time No Known Allergies Allergy Verified 12/19/24 12:05 Review of Systems Review of Systems: All systems reviewed & are unremarkable except as noted in HPI and below PMFSH Past Medical History Medical History Hypertension Diverticula of colon Hx of adenomatous colonic polyps Suprapubic abdominal pain Hx of tear of meniscus of knee joint Personal history of colonic polyps History of pulmonary embolism 04/26 Normal colonoscopy 11/18 Accelerated junctional rhythm Aortic regurgitation COVID 04/26 Surgical History Surgical History History of robot-assisted repair of right inguinal hernia (11/2024) H/O sinus surgery History of total left knee replacement 2016 Family History Family History Father Hypertension Gout Acute myocardial infarction Social History Social History Social History: The patient lives at home with his and she is a durable power senior attorney for healthcare. The patient is a full code. The patient is retired. He has a son and a daughter. The patient is retired from [employer]. Smoking status: Never smoker Second hand tobacco smoke exposure: No Alcohol intake: current Drinks per week: 1 Alcohol use details: 3 per month Substance use: never Substance use type: does not use Do You Feel Safe in your Home?: Yes Lack of Transportation: No Lack of Food: Never True Current Housing: I Have Housing Concerned About Future Housing: No Difficulty Paying Gas/Electric Bills: No Difficulty Paying for Meds: No Currently Unemployed: No Education: Bachelor's Degree Difficulty w/ Childcare or Family Care: No Living arrangements: with family Additional living arrangements comments: Occupation/Education: retired Gender identity (if verbalized by the patient): Male Sexual Orientation (if Verbalized by the Patient): Straight or Heterosexual Spiritual care concerns: No Agree to blood products: Yes Exam Narrative: APPEARANCE: Well appearing, no pain, no distress, well-nourished. HEAD: normocephalic, atraumatic. EYES: PERRLA/EOMI, conjunctivae clear. NOSE: Normal no drainage EARS:TMS clear with good light reflex. THROAT: Pharynx clear, no exudate. NECK: Supple. No adenopathy, no masses. RESPIRATORY: Airway patent, respirations nonlabored. Clear to auscultation bilaterally, no rales, rhonchi, wheezing. CARDIOVASCULAR: Regular rate and rhythm without murmurs rubs or gallops. ABDOMINAL: Soft, nontender, nondistended, normal bowel sounds MUSCULOSKELETAL: Moves all extremities. Strength/ROM intact, No edema, No calf tenderness. NEURO: Alert. Cranial nerves II through XII intact. SKIN: Warm, dry. Normal Color Course Vital Signs Vital signs: Vital Signs Temperature 98.9 F 12/19/24 12:23 Pulse Rate 84 12/19/24 12:23 Respiratory Rate 18 12/19/24 12:23 Blood Pressure 145/48 H 12/19/24 12:23 Pulse Oximetry 94 12/19/24 12:23 Temperature 98.9 F 12/19/24 12:23 Pulse Rate 65 12/19/24 16:18 Respiratory Rate 16 12/19/24 16:18 Blood Pressure 155/64 H 12/19/24 16:18 Pulse Oximetry 95 12/19/24 16:18 Medical Decision Making [facility] Narrative Medical decision making narrative: 74-year-old male presents emergency department for evaluation for cough body aches fatigue. Chest x-ray shows no acute cardiopulmonary mallet patient was negative for influenza RSV and for COVID. Differential Diagnosis Differential Diagnosis: COVID, RSV, influenza, pneumonia Vital Signs Vital Signs: Vital Signs Temperature 98.9 F 12/19/24 12:23 Pulse Rate 84 12/19/24 12:23 Respiratory Rate 18 12/19/24 12:23 Blood Pressure 145/48 H 12/19/24 12:23 Pulse Oximetry 94 12/19/24 12:23 Temperature 98.9 F 12/19/24 12:23 Pulse Rate 65 12/19/24 16:18 Respiratory Rate 16 12/19/24 16:18 Blood Pressure 155/64 H 12/19/24 16:18 Pulse Oximetry 95 12/19/24 16:18 Lab Data Lab results reviewed: Yes I reviewed the patient's lab results. Labs: Lab Results 12/19/24 Range/Units 12:25 Influenza A (RT-PCR) Negative (Negative) Influenza B (RT-PCR) Negative (Negative) RSV (RT-PCR) Negative (Negative) SARS-CoV-2 RNA (RT-PCR) Negative (Negative) Imaging Data Radiologist's impression: Impressions Chest X-Ray 12/19/24 12:36 Impression: Clear lungs. Discharge Plan Discharge Clinical Impression: Acute viral syndrome Patient Disposition: Home, Self-Care Condition: Stable Instructions: Antibiotic Form, Influenza (ED) Additional Instructions: Albuterol inhaler with spacer for shortness of breath. Tessalon Perles for cough. Have close follow-up with your primary care physician. If you have any worsening symptoms then please call or return to the emergency department. Patient Language: Sami Prescriptions: New benzonatate 100 mg capsule 100 mg PO TID PRN (Reason: cough) Qty: 14 0RF albuterol sulfate 90 mcg/actuation HFA aerosol inhaler 1 puff inhalation QID Qty: 6.7 0RF No Action tamsulosin [Flomax] 0.4 mg capsule 0.4 mg PO DAILY Qty: 30 3RF fluticasone propion-salmeterol [Wixela Inhub] 250-50 mcg/dose blister with device 1 inh inhalation BID Qty: 60 4RF minoxidil 10 mg tablet 5 mg PO DAILY Qty: 90 1RF allopurinol 300 mg tablet See Rx Instructions .ROUTE .COMPLEX Qty: 90 3RF Dose Instruction: TAKE 1 TABLET BY MOUTH DAILY TO PREVENT GOUT Rx Instructions: TAKE 1 TABLET BY MOUTH DAILY TO PREVENT GOUT metoprolol succinate 100 mg tablet extended release 24 hr See Rx Instructions .ROUTE .COMPLEX Qty: 90 2RF Dose Instruction: TAKE 1 TABLET BY MOUTH EVERY DAY Rx Instructions: TAKE 1 TABLET BY MOUTH EVERY DAY amlodipine-benazepril 5-40 mg capsule See Rx Instructions .ROUTE .COMPLEX Qty: 90 3RF Dose Instruction: TAKE 1 CAPSULE BY MOUTH EVERY DAY Rx Instructions: TAKE 1 CAPSULE BY MOUTH EVERY DAY Follow-up/Referrals: Cuba Almaguer MD [Primary Care Provider] -
[2024-12-19 16:18] VITALS: BP 155/64; PULSE 65; RESP 16; O2SAT 95
== END 2024-12-19 16:21 | disposition home or self-care (01) ==
PROVIDERS: Emergency Provider Emergency Medicine; PCP Family Medicine Adolescent Medicine
DX: B34.9 Viral infection, unspecified (principal); Z20.822 Contact with and (suspected) exposure to COVID-19; I10 Essential (primary) hypertension; I35.1 Nonrheumatic aortic (valve) insufficiency; Z96.652 Presence of left artificial knee joint; Z86.0101 Personal history of adenomatous and serrated colon polyps; Z86.711 Personal history of pulmonary embolism; Z86.16 Personal history of COVID-19
CPT/HCPCS: 71046; 87637; 94664; 99283